=== PATIENT | male | born 1960 | race Caucasian/White ===

== ENCOUNTER 2018-06-09 16:13 | Inpatient (IN) ==
[2018-06-09] MEDS ORDERED: SODIUM CHLORIDE 0.9% 1000ML 1,000 ML IV ONE (16:29)
[2018-06-09] MEDS ORDERED: KETOROLAC TROMETHAMINE 15 MG/ML VIAL IV STA (16:29)
[2018-06-09] MEDS ORDERED: ONDANSETRON INJ 2 MG/ML 2 ML VIAL IV STA (16:29)
[2018-06-09 17:00] LABS: Basophils # (auto) 0.01 K/uL (0-0.2); Basophils % (auto) 0.1 %; Eosinophils # (auto) 0.04 K/uL (0-0.5); Eosinophils % (auto) 0.3 %; Hemoglobin 14.2 g/dL (14.0-18.0); Immature Granulocytes # (auto) 0.03 K/uL (0.00-0.02); Immature Granulocytes % (auto) 0.3 %; Lymphocytes # (auto) 1.07 K/uL (1.2-3.4); Lymphocytes % (auto) 9.3 %; Mean Corpuscular Hgb Conc 33.8 g/dL (32-36); Mean Corpuscular Volume 92.7 fL (80-100); Mean Platelet Volume 9.1 fL (7.4-10.4); Monocytes # (auto) 0.56 K/uL (0.11-0.59); Monocytes % (auto) 4.9 %; Neutrophils # (auto) 9.79 K/uL (1.4-6.5); Neutrophils % (auto) 85.1 %; Platelet Count 199 K/uL (130-400); RDW Coefficient of Variation 13.1 % (11.5-14.5); RDW Standard Deviation 44.1 fL (36.4-46.3); Red Blood Count 4.53 M/uL (4.7-6.1)
[2018-06-09 17:19] LABS: Alanine Aminotransferase 181 U/L (12-78); Albumin Level 4.2 gm/dl (3.4-5.0); Aspartate Aminotransferase 220 U/L (15-37); BUN Creatinine Ratio 20.3 (10-20); Bilirubin Direct 0.5 mg/dl (0-0.2); Blood Urea Nitrogen 18 mg/dl (7-18); Calcium 8.8 mg/dl (8.5-10.1); Carbon Dioxide 30 mmol/L (21-32); Chloride 101 mmol/L (98-107); Creatinine Clr Calc Pharmacy 114.8 ml/min; Glucose 115 mg/dl (70-99); Potassium 3.8 mmol/L (3.5-5.1); Sodium 136 mmol/L (136-145)
[2018-06-09 17:24] LABS: Alkaline Phosphatase 71 U/L (45-117); Bilirubin,Total 0.9 mg/dl (0.2-1); Total Protein 7.7 gm/dl (6.4-8.2); Troponin I < 0.015 ng/ml (0-0.045)
--- NOTE | 2018-06-09 17:27 | XRay Report ---
XR abdomen 2V w PA chest HISTORY: 57 years-old Male epigastric pain acute epigastric abdominal pain COMPARISON: CT abdomen and pelvis 01/16/2011 TECHNIQUE: PA view the chest with erect and supine views of the abdomen FINDINGS: Cardiomediastinal and hilar silhouettes are within normal limits. There is no pneumothorax, pleural e ffusion, focal airspace consolidation or overt pulmonary edema. Degenerative changes of the shoulders and spine. Prior cholecystectomy. Bowel gas pattern is nonobstructive. Moderate volume of formed stool noted abo ut the right hemicolon. No urolith identified. Degenerative changes of the spine, pelvis and hips. Ca lcifications of the prostate noted. IMPRESSION: 1. No acute processes of the chest. 2. Nonobstructive bowel gas pattern. 3. Moderate volume of formed stool about the right hemicolon. 4. Prior cholecystectomy. The above report was generated using voice recognition software. It may contain grammatical, syntax o r spelling errors. Electronically signed by: Donnie Fonseca M.D. 06/09/2018 5:25 PM
--- NOTE | 2018-06-09 18:02 | CT Scan Report ---
CT SCAN OF THE ABDOMEN AND PELVIS WITHOUT IV CONTRAST CLINICAL HISTORY: Epigastric abdominal pain. Right flank pain. Hematuria. COMPARISON STUDY: Abdominal CT dated 01/16/2011. TECHNIQUE: CT scan of the abdomen and pelvis is performed from the lung bases to the proximal femora. Images are reviewed in the axial, sagittal, and coronal planes. IV contrast was not administered for this examination. A dose lowering technique was utilized adhering to the principles of ALARA. CT DOSE: 844.28 mGy.cm FINDINGS: Lung bases: The heart is normal in size and without pericardial effusion. There are scattered coronar y artery calcifications. A tiny hiatal hernia is observed. The lung bases are clear. Liver: The unenhanced liver is normal in size, contour, and attenuation. There is mild central intrah epatic biliary ductal dilatation. Gallbladder: Surgically absent noting clips in the gallbladder fossa. There is a cystic duct remnant which contains numerous gallstones. There is choledocholithiasis with a 16 mm gallstone within the di stal common duct at the pancreatic head. Spleen: Normal in size and attenuation. Pancreas: Unremarkable. Adrenal glands: Unremarkable. Kidneys: The unenhanced kidneys are normal in size and without hydronephrosis. There are no renal natalia culi identified. There is no evidence of contour deforming renal mass lesion. Abdominal vasculature: The abdominal aorta is normal in course and caliber noting mild atheroscleroti c calcification. Bowel: There is mild colonic diverticulosis without CT evidence of acute diverticulitis. Colonic feca l retention is observed. No bowel obstruction is identified. The appendix is well-visualized and nor mal. Peritoneum: There is no intraperitoneal free air or abdominal ascites. There is a fat-containing umbi lical hernia. Lymphadenopathy: None. Pelvic viscera: The prostate gland is enlarged and heterogeneous, measuring 5.6 cm in transverse diam eter. There is median lobe hypertrophy. The bladder and seminal vesicles are normal as imaged. There are small bilateral fat-containing inguinal hernias. Skeletal structures: There is mild lumbosacral spondylosis. No lytic or blastic lesions are seen. IMPRESSION: 1. The gallbladder surgically absent. There are numerous gallstones within a cystic duct remnant. 2. There is choledocholithiasis with a 16 mm calcified gallstone in the distal common duct at the amp bernarda. MRCP is unlikely to provide further information and ERCP is recommended. 3. There is mild intrahepatic biliary ductal dilatation, which has increased from the 2011 examinatio n. 4. Mild colonic diverticulosis without CT evidence of acute diverticulitis. 5. Additional findings as above. Electronically signed by: Bob Kennedy M.D. 06/09/2018 6:00 PM
[2018-06-09] MEDS ORDERED: MoRPHine SULFATE 4 MG/ML 1 ML CARP\\VIAL IV STA (18:18)
--- NOTE | 2018-06-09 18:26 | Emergency Department Note ---
Entered by Froylan Ding acting as a scribe for Michael Cannon History of Present Illness General Chief complaint: Abdominal Pain Stated complaint: ABDOMINAL PAIN Time Seen by Provider: 06/09/18 16:24 Source: patient Limitations: no limitations History of Present Illness Provider complaint: RLQ abdominal pain Onset (ago): day(s) (3) Location: abdomen Severity: severe Pain Consistency: + constant Maximum Pain Intensity: 10 Associated symptoms: + other (Blood in underwear); no chest pain, no shortness of breath and no syncope The patient is a 57 year old male who presents to the Emergency Room with complaints of abdominal pain. The patient states that he first experienced pain in his right flank on Thursday, 3 days ago. This pain resolved, and returned again on Thursday and radiated into the right lower abdominal quadrant. Since Thursday the pain in the abdomen has persisted. 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 He felt like he was going to pass out secondary to the pain, but he never lost consciousness. The patient does add that he has noticed "blood in my underwear" intermittently over the past couple of days as well. There has not been any chest pain or shortness of breath. Home Medications Home Medications Medication Instructions Recorded Confirmed Type celecoxib 200 mg PO DAILY 05/05/18 06/09/18 History cholecalciferol (vitamin D3) 1,000 units PO DAILY 05/05/18 06/09/18 History [Vitamin D3] levothyroxine [Synthroid] 200 mcg PO DAILY 05/05/18 06/09/18 History lisinopril 10 mg PO DAILY 05/05/18 06/09/18 History omega 7-yut-mhv-fish oil [Fish Oil] 1,000 mg PO DAILY 05/05/18 06/09/18 History simvastatin 20 mg PO HS 05/05/18 06/09/18 History tramadol 100 mg PO BID PRN 05/05/18 06/09/18 History trazodone 100 mg PO HS 05/05/18 06/09/18 History venlafaxine 37.5 mg PO DAILY 05/05/18 06/09/18 History Allergies Allergy/AdvReac Type Severity Reaction Status Date / Time No Known Allergies Allergy Verified 06/09/18 17:06 Past Med/Surg History Medical History Rheumatoid arthritis (Chronic) Irritable bowel syndrome (Chronic 12/09/12) Hypothyroidism (Chronic 12/09/12) Other and unspecified hyperlipidemia (Chronic 12/09/12) GERD (gastroesophageal reflux disease) (Chronic 12/09/12) Diabetes (Chronic 12/09/12) Surgical History History of tonsillectomy (Resolved) History of orthopedic surgery (Resolved) Shoulder arthroscopy, knee arthroscopy History of cholecystectomy (Resolved 12/09/12) Social History Feels Safe at Home: Yes Smoking Status: Never smoker Review of Systems See HPI for pertinent positives & negatives. and A total of 10 systems reviewed and were otherwise negative Physical Exam Vital Signs Vital Signs - 24 hr 06/09/18 16:21 06/09/18 18:10 Temperature 36.5 C Temperature Source Oral Sepsis Recent Fever Within 48 Hours No Sepsis Action Taken by Nursing No Action Required Pulse Rate 72 Pulse Rate [Finger] 77 Pulse Rhythm [Finger] Regular Pulse Strength [Finger] Normal Respiratory Rate 20 18 Respiratory Effort / Characteristics Non-Labored Spontaneous Non-Labored Spontaneous Respiratory Depth Normal Normal Respiratory Pattern Regular Blood Pressure 158/83 H Blood Pressure [Right Arm] 163/87 H Blood Pressure Mean 108 Blood Pressure Mean [Right Arm] 112 Blood Pressure Position [Right Arm] Lying Pulse Oximetry 98 97 Oxygen Delivery Method Room Air Room Air Physical Exam GENERAL: He is oriented to person, place, and time. He appears well-developed and well-nourished. He does not appear distressed. ____ HENT: Exam performed. - Head: Normocephalic and atraumatic. - Right Ear: External ear normal. No mastoid tenderness. - Left Ear: External ear normal. No mastoid tenderness. - Mouth/Throat: The oropharynx is clear and moist. No trismus in the jaw. No dental abscesses or uvula swelling. No oropharyngeal exudate or tonsillar abscesses. ____ EYES: Conjunctivae and EOM are normal. Pupils are equal, round, and reactive to light. Right eye exhibits no discharge. Left eye exhibits no discharge. No scleral icterus. ____ NECK: Normal range of motion. Neck supple. No JVD present. No spinous process tenderness present. No carotid bruit present. No rigidity. No tracheal deviation and normal range of motion present. No Brudzinski's sign and no Kernig's sign noted. ____ CV: Normal rate, regular rhythm, normal heart sounds and intact distal pulses. There is no peripheral edema. Palpable radial pulses bue. ____ PULM/CHEST: Effort normal and breath sounds normal. No respiratory distress. No stridor. He has no wheezes. He has no rales. - Chest Wall: He exhibits no tenderness. ____ ABD: The abdomen is soft. Bowel sounds are normal. He has no distension. No mass is present. There is pain on palpation of the epigastric region. There is no rebound, no guarding, no Broden's sign and no tenderness at McBurney's point. Rovsig negative MUSC/SKEL: Normal range of motion. There is no peripheral edema, tenderness or deformity. LYMPH: No cervical adenopathy. ____ NEURO: He is alert and oriented to person, place, and time. He has normal strength. No cranial nerve deficit or sensory deficit. Coordination and gait normal. GCS eye subscore is 4. GCS verbal subscore is 5. GCS motor subscore is 6. cerbellar tests wnl. ____ SKIN: Skin is warm and dry. He is not diaphoretic. ____ PSYCH: He has a normal mood and affect. His behavior is normal. Judgment and thought content normal. ____ Course 1626: Past medical records reviewed. The patient was evaluated in room A4B, and a complete history and physical examination were performed. 1710: Vital signs stable. Patient continues pain on palpation of the epigastric area. Labs show elevated liver enzymes. Will obtain CT of the abdomen. 1825: Vital signs stable. CT of the abdomen showed a large calcified gallstone in the distal common duct at the ampulla. Radiology is recommending ERCP. There is mild intrahepatic biliary ductal dilatation. I discussed these findings with the patient is continuing of pain. Repeat analgesia given in the emergency department. I discussed with the patient he should be admitted for ERCP as recommended. Patient is in agreement. [facility] states to admit to Dr. Camilo service. [facility] hospitalist service is recommending that we speak with GI environmental engineer. Spoke with [facility] GI Dr. Dietz who agrees to be on consult. Administered Medications Discontinued Medications Sodium Chloride (Nss 1000ml) 1,000 mls @ 999 mls/hr IV .Q1H1M ONE Stop: 06/09/18 17:29 Last Infusion: 06/09/18 17:54 Dose: 0 mls/hr Documented by: [id number] Admin: 06/09/18 16:53 Dose: 999 mls/hr Documented by: [id number] Ketorolac Tromethamine (Toradol) 15 mg IV NOW STA Stop: 06/09/18 16:30 Last Admin: 06/09/18 16:53 Dose: 15 mg Documented by: [id number] Morphine Sulfate (Morphine Sulfate) 4 mg IV NOW STA Stop: 06/09/18 18:19 Last Admin: 06/09/18 18:21 Dose: 4 mg Documented by: [id number] Ondansetron HCl (Zofran) 4 mg IV NOW STA Stop: 06/09/18 16:30 Last Admin: 06/09/18 16:53 Dose: 4 mg Documented by: [id number] Medical Decision Making Medical Records Attestation: I reviewed the patient's medical records. Home Medications Current Medication List: was personally reviewed by me Laboratory Data Attestation: I reviewed the patient's lab results. Result diagrams: 06/09/18 16:51 06/09/18 16:51 Lab Results 06/09/18 06/09/18 Range/Units 16:51 16:51 WBC 11.50 H (4.8-10.8) K/uL RBC 4.53 L (4.7-6.1) M/uL Hgb 14.2 (14.0-18.0) g/dL Hct 42.0 (42-52) % MCV 92.7 (80-100) fL MCH 31.3 (25-34) pg MCHC 33.8 (32-36) g/dL RDW Std Deviation 44.1 (36.4-46.3) fL RDW Coeff of Jean 13.1 (11.5-14.5) % Plt Count 199 (130-400) K/uL MPV 9.1 (7.4-10.4) fL Immature Gran % (Auto) 0.3 % Neut % (Auto) 85.1 % Lymph % (Auto) 9.3 % Motley % (Auto) 4.9 % Eos % (Auto) 0.3 % Baso % (Auto) 0.1 % Immature Gran # (Auto) 0.03 H (0.00-0.02) K/uL Neut # (Auto) 9.79 H (1.4-6.5) K/uL Lymph # (Auto) 1.07 L (1.2-3.4) K/uL Motley # (Auto) 0.56 (0.11-0.59) K/uL Eos # (Auto) 0.04 (0-0.5) K/uL Baso # (Auto) 0.01 (0-0.2) K/uL Sodium 136 (136-145) mmol/L Potassium 3.8 (3.5-5.1) mmol/L Chloride 101 (98-107) mmol/L Carbon Dioxide 30 (21-32) mmol/L Anion Gap 5.0 (3-11) BUN 18 (7-18) mg/dl Creatinine 0.88 (0.6-1.4) mg/dl Est Cr Clr Drug Dosing 114.8 ml/min Est GFR ( Amer) 109.0 Est GFR (Non-Af Amer) 94.0 BUN/Creatinine Ratio 20.3 H (10-20) Glucose 115 H (70-99) mg/dl Calcium 8.8 (8.5-10.1) mg/dl Total Bilirubin 0.9 (0.2-1) mg/dl Direct Bilirubin 0.5 H (0-0.2) mg/dl AST 220 H (15-37) U/L ALT 181 H (12-78) U/L Alkaline Phosphatase 71 (45-117) U/L Troponin I < 0.015 (0-0.045) ng/ml Total Protein 7.7 (6.4-8.2) gm/dl Albumin 4.2 (3.4-5.0) gm/dl Lipase 145 (73-393) U/L Imaging Data Attestation: I personally reviewed and interpreted this imaging study as follows: Radiologist's Impression: XR abdomen 2V w PA chest HISTORY: 57 years-old Male epigastric pain acute epigastric abdominal pain COMPARISON: CT abdomen and pelvis 01/16/2011 TECHNIQUE: PA view the chest with erect and supine views of the abdomen FINDINGS: Cardiomediastinal and hilar silhouettes are within normal limits. There is no pneumothorax, pleural effusion, focal airspace consolidation or overt pulmonary edema. Degenerative changes of the shoulders and spine. Prior cholecystectomy. Bowel gas pattern is nonobstructive. Moderate volume of formed stool noted about the right hemicolon. No urolith identified. Degenerative changes of the spine, pelvis and hips. Calcifications of the pros wood noted. IMPRESSION: 1. No acute processes of the chest. 2. Nonobstructive bowel gas pattern. 3. Moderate volume of formed stool about the right hemicolon. 4. Prior cholecystectomy. The above report was generated using voice recognition software. It may contain grammatical, syntax or spelling errors. Electronically signed by: Donnie Fonseca M.D. 06/09/2018 5:[address] SCAN OF THE ABDOMEN AND PELVIS WITHOUT IV CONTRAST CLINICAL HISTORY: Epigastric abdominal pain. Right flank pain. Hematuria. COMPARISON STUDY: Abdominal CT dated 01/16/2011. TECHNIQUE: CT scan of the abdomen and pelvis is performed from the lung bases to the proximal femora. Images are reviewed in the axial, sagittal, and coronal planes. IV contrast was not administered for this examination. A dose lowering technique was utilized adhering to the principles of ALARA. CT DOSE: 844.28 mGy.cm FINDINGS: Lung bases: The heart is normal in size and without pericardial effusion. There are scattered coronary artery calcifications. A tiny hiatal hernia is observed. The lung bases are clear. Liver: The unenhanced liver is normal in size, contour, and attenuation. There is mild central intrahepatic biliary ductal dilatation. Gallbladder: Surgically absent noting clips in the gallbladder fossa. There is a cystic duct remnant which contains numerous gallstones. There is choledoc holithiasis with a 16 mm gallstone within the distal common duct at the pancreatic head. Spleen: Normal in size and attenuation. Pancreas: Unremarkable. Adrenal glands: Unremarkable. Kidneys: The unenhanced kidneys are normal in size and without hydronephrosis. There are no renal calculi identified. There is no evidence of contour deforming renal mass lesion. Abdominal vasculature: The abdominal aorta is normal in course and caliber noting mild atherosclerotic calcification. Bowel: There is mild colonic diverticulosis without CT evidence of acute diverticulitis. Colonic fecal retention is observed. No bowel obstruction is identified. The appendix is well-visualized and normal. Peritoneum: There is no intraperitoneal free air or abdominal ascites. There is a fat-containing umbilical hernia. Lymphadenopathy: None. Pelvic viscera: The prostate gland is enlarged and heterogeneous, measuring 5.6 cm in transverse diameter. There is median lobe hypertrophy. The bladder and seminal vesicles are normal as imaged. There are small bilateral fat-containing inguinal hernias. Skeletal structures: There is mild lumbosacral spondylosis. No lytic or blastic lesions are seen. IMPRESSION: 1. The gallbladder surgically absent. There are numerous gallstones within a cystic duct remnant. 2. There is choledocholithiasis with a 16 mm calcified gallstone in the distal common duct at the ampulla. MRCP is unlikely to provide further information and ERCP is recommended. 3. There is mild intrahepatic biliary ductal dilatation, which has increased from the 2011 examination. 4. Mild colonic diverticulosis without CT evidence of acute diverticulitis. 5. Additional findings as above. Electronically signed by: Bob Kennedy M.D. 06/09/2018 6:00 PM ECG Data Attestation: I personally reviewed and interpreted this ECG as follows: Indication: abdominal pain Rate (beats per minute): 64 Rhythm: sinus rhythm Findings: + other (KS, QRS, QTC within normal limits) and + T-wave inversion (lead 3); no ST depression and no ST elevation Blood Pressure Blood Pressure Findings: Elevated blood pressure Blood Pressure Disposition: Referred to patients primary care provider [facility] Narrative 1626: Past medical records reviewed. The patient was evaluated in room A4B, and a complete history and physical examination were performed. 1710: Vital signs stable. Patient continues pain on palpation of the epigastric area. Labs show elevated liver enzymes. Will obtain CT of the abdomen. 1825: Vital signs stable. CT of the abdomen showed a large calcified gallstone in the distal common duct at the ampulla. Radiology is recommending ERCP. There is mild intrahepatic biliary ductal dilatation. I discussed these findings with the patient is continuing of pain. Repeat analgesia given in the emergency department. I discussed with the patient he should be admitted for ERCP as recommended. Patient is in agreement. Discussed this case with the [facility]ist Kimber Ibrahim who states to admit to Dr. Ton rios. [facility] hospitalist service is recommending that we speak with GI environmental engineer. Spoke with [facility] GI Dr. Dietz who agrees to be on consult. Impression & Plan Choledocholithiasis, Elevated liver enzymes Discharge Plan Visit Data Chief Complaint: Abdominal Pain Stated Complaint: ABDOMINAL PAIN ED Provider: Michael Cannon Discharge Problem: Choledocholithiasis, Elevated liver enzymes Patient Disposition: Being Evaluated by Hospitalist Forms Stand Alone Forms: Call Back Authorization, [facility] Prescriptions Prescriptions: No Action celecoxib 200 mg capsule 200 mg PO DAILY RF: 0 venlafaxine 37.5 mg capsule,extended release 24hr 37.5 mg PO DAILY RF: 0 tramadol 50 mg tablet 100 mg PO BID PRN (Reason: Pain) RF: 0 trazodone 100 mg tablet 100 mg PO HS RF: 0 simvastatin 20 mg tablet 20 mg PO HS RF: 0 lisinopril 10 mg tablet 10 mg PO DAILY RF: 0 levothyroxine [Synthroid] 200 mcg tablet 200 mcg PO DAILY RF: 0 cholecalciferol (vitamin D3) [Vitamin D3] 1,000 unit Capsule 1,000 units PO DAILY RF: 0 omega 5-mgv-gjn-fish oil [Fish Oil] 1,000 mg (120 mg-180 mg) Capsule 1,000 mg PO DAILY RF: 0 Referrals Referrals: Frank Hassan MD [Primary Care Provider] - The scribe's documentation has been prepared under my direction and personally reviewed by me in its entirety. I confirm that the note above accurately reflects all work, treatment, procedures, and medical decision making performed by me.
--- NOTE | 2018-06-09 19:53 | History & Physical Report ---
Date of Service June 09, 2018 Assessment & Plan (1) Choledocholithiasis: (2) Elevated liver enzymes: Pt presented with RUQ pain today. No N/V/D. H/O cholecystectomy. In ER pt afebrile, P: 72, R:20, BP: 158/83, 98% RA. WBC: 11.5, H/H: 14/42, BUN: 18, Cr: 0.8, Total bili: 0.9, Direct bili: 0.5, AST: 220, ALT: 181, Alk Phos: 71. No jaundice on exam CT ABD/PELVIS: 1. The gallbladder surgically absent. There are numerous gallstones within a cystic duct remnant. 2. There is choledocholithiasis with a 16 mm calcified gallstone in the distal common duct at the ampulla. MRCP is unlikely to provide further information and ERCP is recommended. 3. There is mild intrahepatic biliary ductal dilatation, which has increased from the 2011 examination. 4. Mild colonic diverticulosis without CT evidence of acute diverticulitis. -In ER given 1L NSS, zofran 4mg, morphine 4mg, Toradol 15mg IV. -clear liquids -NPO midnight -IVF -cipro, flagyl -morphine prn pain -GI consult, appreciate recommendations -CBC, CMP, Liver profile in am (3) HTN (hypertension): Elevated probable secondary to pain -continue lisinopril -monitor (4) Dyslipidemia: -hold statin for now (5) Hypothyroidism: -continue levothyroxine (6) Insomnia: -continue trazadone prn insomnia (7) Osteoarthritis: -hold celebrex at this time -continue venlafaxine DVT Prophylaxis -SCDs Full Code Follows with Dr Hassan for routine care Pt was seen with Dr Miranda. See addendum History of Present Illness Chief Complaint: Abdominal pain Primary Care Provider: Frank Hassan Pt is 57 y/o M with PMH dyslipidemia, HTN, hypothryoidism, GERD, IBS, OA presented to ER with c/o abdominal pain x 1 day. Pt states 3 days ago had some R flank pain that lasted approx 1 hour and resolved. This morning started with RUQ dull pain that was severe. He took 2 Tylenol and 2 Tramadol with some relief of pain. This evening pain increased again. Denies N/V/D. Last BM yesterday. Hx cholecystectomy in 1997. Denies fever/chills, diaphoresis, KAY, dizziness, syncope, vision changes, neck pain, CP, SOB, orthopnea, palpitations, cough, sore throat, choking, otalgia, rhinorrhea, paresthesias, weakness, extremity weakness, extremity edema, rashes, urinary symptoms. Allergies Allergy/AdvReac Type Severity Reaction Status Date / Time No Known Allergies Allergy Verified 06/09/18 17:06 Home Medications Home Medications Medication Instructions Recorded Confirmed Type celecoxib 200 mg PO DAILY 05/05/18 06/09/18 History cholecalciferol (vitamin D3) 1,000 units PO DAILY 05/05/18 06/09/18 History [Vitamin D3] levothyroxine [Synthroid] 200 mcg PO DAILY 05/05/18 06/09/18 History lisinopril 10 mg PO DAILY 05/05/18 06/09/18 History omega 6-iac-ipc-fish oil [Fish Oil] 1,000 mg PO DAILY 05/05/18 06/09/18 History simvastatin 20 mg PO HS 05/05/18 06/09/18 History tramadol 100 mg PO BID PRN 05/05/18 06/09/18 History trazodone 100 mg PO HS PRN 05/05/18 06/09/18 History venlafaxine 37.5 mg PO DAILY 05/05/18 06/09/18 History Past Med/Surg History Medical History Insomnia (Chronic) HTN (hypertension) (Chronic) Dyslipidemia (Chronic) Osteoarthritis (Chronic) Irritable bowel syndrome (Chronic 12/09/12) Hypothyroidism (Chronic 12/09/12) GERD (gastroesophageal reflux disease) (Chronic 12/09/12) Surgical History History of tonsillectomy (Chronic) History of orthopedic surgery (Chronic) Shoulder arthroscopy, knee arthroscopy History of cholecystectomy (Chronic 12/09/12) Social History Preferred Language: Maldivian Communication Ability: Effective Whiskey Filterer Required: No Beliefs That Will Affect Care: None Current Living Situation: Spouse Feels Safe at Home: Yes Safety Concerns: Feels Safe At This Time Smoking Status: Never smoker Hx Alcohol Use: Yes Hx Substance Use: No Review of Systems All systems reviewed & are unremarkable except as noted in HPI & below Physical Exam Vital Signs (Past 24 Hours): Last Vital Signs Temp 36.5 C 06/09/18 16:21 Pulse 77 06/09/18 18:10 Resp 18 06/09/18 18:10 BP 163/87 H 06/09/18 18:10 Pulse Ox 97 06/09/18 18:10 Physical Exam: General: no acute distress, overweight Head: normocephalic, atraumatic Eyes: PERRL, EOM's intact, conjunctiva non-injected, anicteric ENT: normal inspection external ears, nose, mucous membranes moist Neck: supple, trachea midline Lungs: clear, no respiratory distress, no wheezing/rhonchi/rales CV: RRR, no murmur, no pretibial edema Abd: normal BS, soft, + tender RUQ and mild to epigastric Ext: no cyanosis, no calf tenderness Neuro: A&O x 3, no focal deficits noted, normal affect Skin: warm, dry Results & Data Laboratory Results Short CBC 06/09/18 Range/Units 16:51 WBC 11.50 H (4.8-10.8) K/uL Hgb 14.2 (14.0-18.0) g/dL Hct 42.0 (42-52) % Plt Count 199 (130-400) K/uL BMP 06/09/18 16:51 Sodium 136 Potassium 3.8 Chloride 101 Carbon Dioxide 30 BUN 18 Creatinine 0.88 Glucose 115 H Calcium 8.8 Cardiac Enzymes 06/09/18 Range/Units 16:51 Troponin I < 0.015 (0-0.045) ng/ml Liver Function 06/09/18 Range/Units 16:51 Total Bilirubin 0.9 (0.2-1) mg/dl Direct Bilirubin 0.5 H (0-0.2) mg/dl AST 220 H (15-37) U/L ALT 181 H (12-78) U/L Alkaline Phosphatase 71 (45-117) U/L Albumin 4.2 (3.4-5.0) gm/dl Diagnostic Findings CT ABD/PELVIS: IMPRESSION: 1. The gallbladder surgically absent. There are numerous gallstones within a cystic duct remnant. 2. There is choledocholithiasis with a 16 mm calcified gallstone in the distal common duct at the ampulla. MRCP is unlikely to provide further information and ERCP is recommended. 3. There is mild intrahepatic biliary ductal dilatation, which has increased from the 2011 examination. 4. Mild colonic diverticulosis without CT evidence of acute diverticulitis. 5. Additional findings as above. CXR: IMPRESSION: 1. No acute processes of the chest. 2. Nonobstructive bowel gas pattern. 3. Moderate volume of formed stool about the right hemicolon. 4. Prior cholecystectomy. ECG Rate (beats per minute): 64 Rhythm: normal sinus Supervising Physician Co-Signing Physician Notes Patient is a 57-year-old male with his dyslipidemia, hypothyroidism and other medical problems presents with history of abdominal pain since 1 day duration. Abdominal pain is predominantly right Upper and lower quadrant region, intermittent, decreases with pain medication. Please review HPI for complete details of presentation. CT abdomen suggestive of choledocholithiasis with 16mm gallstone in distal CBD. On exam patient is moderately built and nourished, no apparent distress, lungs are clear to auscultation, abdomen is soft, right lower quadrant and right upper quadrant tenderness positive, no guarding or rigidity. Patient will be admitted for management of choledocholithiasis. N.p.o. after midnight, IV fluids, empiric IV antibiotics, pain control. GI is consulted for possible ERCP. Monitor LFTs. I personally reviewed the record. Patient is interviewed and examined at bedside. Patient's care is coordinated with Anny Ocasio PA-C. Please refer to the documentation above for details of patient's presentation and for discussion of other issues.
[2018-06-09] MEDS: SODIUM CHLORIDE 0.9% 1000ML 1,000 ML IV SCH (21:27)
[2018-06-09] MEDS: metroNIDAZOLE 500 MG/100 ML BAG IV SCH (21:27)
[2018-06-09] MEDS: CIPROFLOXACIN 400 MG/200 ML BAG IV SCH (22:42)
[2018-06-10] MEDS: TRAZODONE HCL 100 MG TAB PO PRN (00:13)
[2018-06-10] MEDS: metroNIDAZOLE 500 MG/100 ML BAG IV SCH ×3 (05:18→23:23)
[2018-06-10] MEDS: MoRPHine SULFATE 4 MG/ML 1 ML CARP\\VIAL IV PRN ×3 (05:19→12:06)
[2018-06-10] MEDS: LEVOTHYROXINE SODIUM 200 MCG TABLET PO SCH (05:21)
[2018-06-10 06:22] LABS: Eosinophils # (auto) 0.06 K/uL (0-0.5); Eosinophils % (auto) 1.2 %; Hematocrit (blood only) 38.7 % (42-52); Hemoglobin 13.2 g/dL (14.0-18.0); Immature Granulocytes # (auto) 0.01 K/uL (0.00-0.02); Immature Granulocytes % (auto) 0.2 %; Lymphocytes % (auto) 20.8 %; Mean Corpuscular Hgb Conc 34.1 g/dL (32-36); Mean Corpuscular Volume 92.4 fL (80-100); Mean Platelet Volume 9.1 fL (7.4-10.4); Monocytes # (auto) 0.37 K/uL (0.11-0.59); Monocytes % (auto) 7.7 %; Neutrophils # (auto) 3.37 K/uL (1.4-6.5); Neutrophils % (auto) 70.1 %; Platelet Count 171 K/uL (130-400); RDW Coefficient of Variation 13.2 % (11.5-14.5); Red Blood Count 4.19 M/uL (4.7-6.1); White Blood Count 4.81 K/uL (4.8-10.8)
[2018-06-10 07:12] LABS: Albumin Globulin Ratio 1.1 (0.9-2); Albumin Level 3.5 gm/dl (3.4-5.0); BUN Creatinine Ratio 14.6 (10-20); Bilirubin Direct 2.1 mg/dl (0-0.2); Bilirubin,Total 3.2 mg/dl (0.2-1); Calcium 8.4 mg/dl (8.5-10.1); Creatinine Clr Calc Pharmacy 122.3 ml/min; Est GFR (African American) 111.1; Est GFR (Non-African American) 95.8; Globulin 3.1 gm/dl (2.5-4.0); Total Protein 6.6 gm/dl (6.4-8.2)
--- NOTE | 2018-06-10 07:51 | Gastrointestinal Consultation ---
Date of Consultation June 10, 2018 Assessment & Plan (1) Choledocholithiasis: Mr. Pepe Reeder is a 57 yr old male with RUQ pain, choledocholithiasis on CT. Plan: 1. IV fluids 2. Cover for cholangitis (mild leukocytosis at 11 on arrival). 3. Plan for ERCP this afternoon by Dr. Hurt. Present on Admission?: Yes Supervising Physician Co-Signing Physician Notes I have performed a history and physical examination of this patient and reviewed the electronic medical record. Specifically, on physical examination there is mild RUQ tenderness. I have discussed the case with MARY Rainey. The above note reflects my findings, conclusions, and recommendations. Ean Hurt MD History of Present Illness Reason for Consultation: Choledocholithiasis Requesting Physician: Mr. Varinder Cantu is a 57 yr old male with a hx of GERD, RhArthritis, Hypothyroidism, DM, IBS who is post distant cholecyctectomy. He presented to the ED yesterday for RUQ abdominal pain. This pain began on Thursday (4 days ago) as a sharp, moderately severe back pain though he soon realized that he also had RUQ pain with the back pain. He felt better again until yesterday when the pain returned along with dark urine. He has not had a fever, nausea, vomiting, jaundice, or icterus. He is on celecoxib, no other NSAIDs and no antiplatelet/anticoagulants. On arrival, WBC 11, Hb 14, T bili 0.5->2.1 today, AST 22->1031, ALT 181->1091, Alk Phos 136. Lipase has been normal. CT suggests choledocholithiasis: 16 mm calcified gallstone in the distal common duct at the ampulla. The pt is awake, alert, oriented and hemodynamically stable. Despite pain medications and being NPO, he continues with a 4 of 10 RUQ abdomen pain. Attending Physician: Jagjit Mcdonald MD Allergies Allergy/AdvReac Type Severity Reaction Status Date / Time No Known Allergies Allergy Verified 06/09/18 17:06 Home Medications Home Medications Medication Instructions Recorded Confirmed Type celecoxib 200 mg PO DAILY 05/05/18 06/09/18 History cholecalciferol (vitamin D3) 1,000 units PO DAILY 05/05/18 06/09/18 History [Vitamin D3] levothyroxine [Synthroid] 200 mcg PO DAILY 05/05/18 06/09/18 History lisinopril 10 mg PO DAILY 05/05/18 06/09/18 History omega 7-svh-pph-fish oil [Fish Oil] 1,000 mg PO DAILY 05/05/18 06/09/18 History simvastatin 20 mg PO HS 05/05/18 06/09/18 History tramadol 100 mg PO BID PRN 05/05/18 06/09/18 History trazodone 100 mg PO HS PRN 05/05/18 06/09/18 History venlafaxine 37.5 mg PO DAILY 05/05/18 06/09/18 History Patient History Medical History Insomnia (Chronic) HTN (hypertension) (Chronic) Dyslipidemia (Chronic) Osteoarthritis (Chronic) Irritable bowel syndrome (Chronic 12/09/12) Hypothyroidism (Chronic 12/09/12) GERD (gastroesophageal reflux disease) (Chronic 12/09/12) Surgical History History of tonsillectomy (Chronic) History of orthopedic surgery (Chronic) Shoulder arthroscopy, knee arthroscopy History of cholecystectomy (Chronic 12/09/12) Family History Other Colon cancer HTN (hypertension) Social History Preferred Language: Sammarinese Communication Ability: Effective Supervisor Bottle House Cleaners Required: No Beliefs That Will Affect Care: None Current Living Situation: Spouse Feels Safe at Home: Yes Safety Concerns: Feels Safe At This Time Smoking Status: Never smoker Hx Alcohol Use: Yes Hx Substance Use: No Review of Systems Gen: Denies fever, weakness, weight loss. Eyes: no vision changes, no eye redness or pain Respiratory: No SOB, no cough Cardiovascular: No irregular heartbeats or chest pain Abdomen: + RUQ pain, no nausea/vomiting Ext: No edema Hem: No excessive bruising/bleeding : dark urine, no dysuria or difficulty initiating the stream of urine. Physical Exam Vital Signs (Past 24 Hours): Last Vital Signs Temp 36.7 C 06/10/18 07:27 Pulse 73 06/10/18 07:27 Resp 16 06/10/18 07:27 BP 141/82 H 06/10/18 07:27 Pulse Ox 96 06/10/18 07:27 Constitutional: WD/WN, vitals as above + obese (mildly) and healthy appearing Eyes: PERRL, conjunctivae normal, anicteric sclerae Neck: trachea midline, no thyromegaly Respiratory: normal respiratory effort, lungs clear to auscultation Cardiovascular: RRR, no murmur, no edema Gastrointestinal (Abdomen): Inspection/Auscultation: abdomen not distended Percussion/Palpation: + abdomen tender (RUQ ) and abdomen soft; no ascites Skin: no rashes, warm and dry no jaundice Neurologic: PERRL, EOMI, accommodation nl, no face palsy, no dysarthria Genitourinary: dark urine Lymphatic: no cervical or axillary lymphadenopathy Results & Data Diagnostic Findings CT 06/09/18: 1. The gallbladder surgically absent. There are numerous gallstones within a cystic duct remnant. 2. There is choledocholithiasis with a 16 mm calcified gallstone in the distal common duct at the ampulla. MRCP is unlikely to provide further information and ERCP is recommended. 3. There is mild intrahepatic biliary ductal dilatation, which has increased from the 2011 examination. 4. Mild colonic diverticulosis without CT evidence of acute diverticulitis. 5. Additional findings as above.
[2018-06-10] MEDS: VENLAFAXINE HCL XR 37.5 MG CAPXR PO SCH (08:21)
[2018-06-10] MEDS: CIPROFLOXACIN 400 MG/200 ML BAG IV SCH ×2 (08:21→20:26)
[2018-06-10] MEDS: LISINOPRIL 10 MG TAB PO SCH (08:21)
--- NOTE | 2018-06-10 08:53 | Anesthesiology Consultation ---
Date of Service June 10, 2018 Assessment & Plan (1) Encounter for pre-operative examination: Chart Review Chart Review: Acceptable Risk for Surgery and Patient NOT seen in Pre Admission Testing NPO Date Last Intake of Fluids: 06/09/18 Time Last Intake of Fluids: 23:59 Date Last Intake of Solids: 06/09/18 Time Last Intake of Solids: 23:59 History Surgery Operation Date: 06/10/18 08:15 Proposed Procedures p Endoscopic Retrograde Cholangiopancreato - Ean Hurt MD Height/Weight Height: 1.88 m Weight: 105 kg Allergies Allergy/AdvReac Type Severity Reaction Status Date / Time No Known Allergies Allergy Verified 06/09/18 17:06 Medications Home Medications Medication Instructions Recorded Confirmed Last Taken celecoxib 200 mg PO DAILY 05/05/18 06/09/18 Unknown cholecalciferol (vitamin D3) 1,000 units PO DAILY 05/05/18 06/09/18 Unknown [Vitamin D3] levothyroxine [Synthroid] 200 mcg PO DAILY 05/05/18 06/09/18 Unknown lisinopril 10 mg PO DAILY 05/05/18 06/09/18 Unknown omega 3-sgp-avz-fish oil [Fish Oil] 1,000 mg PO DAILY 05/05/18 06/09/18 Unknown simvastatin 20 mg PO HS 05/05/18 06/09/18 Unknown tramadol 100 mg PO BID PRN 05/05/18 06/09/18 Unknown trazodone 100 mg PO HS PRN 05/05/18 06/09/18 Unknown venlafaxine 37.5 mg PO DAILY 05/05/18 06/09/18 Unknown Active Medications Generic Name Dose Route Start Last Admin Trade Name Freq PRN Reason Stop Dose Admin Sodium Chloride 1,000 mls @ 80 mls/hr 06/09/18 20:30 06/10/18 06:18 Nss 1000ml IV 07/09/18 20:29 80 mls/hr .[id number] RITA Infusion Metronidazole 500 mg in 100 mls @ 100 mls/hr 06/09/18 20:45 06/10/18 06:18 Flagyl IV 06/19/18 20:44 Infused Q8 RITA Infusion Ciprofloxacin 400 mg in 200 mls @ 100 mls/hr 06/09/18 21:00 06/10/18 08:21 Cipro IV 06/19/18 20:59 100 mls/hr Q12H RITA Administration Levothyroxine Sodium 200 mcg 06/10/18 06:30 06/10/18 05:21 Synthroid PO 07/10/18 06:29 200 mcg DAILYBB RITA Administration Lisinopril 10 mg 06/10/18 09:00 06/10/18 08:21 Zestril PO 07/10/18 08:59 10 mg DAILY RITA Administration Morphine Sulfate 3 mg 06/09/18 20:23 06/10/18 08:19 Morphine Sulfate IV 06/23/18 20:22 3 mg Q3H PRN Administration Pain Trazodone HCl 100 mg 06/09/18 20:23 06/10/18 00:13 Desyrel PO 07/09/18 20:22 100 mg HS PRN Administration Insomnia Venlafaxine HCl 37.5 mg 06/10/18 09:00 06/10/18 08:21 Effexor Extended Release PO 07/10/18 08:59 37.5 mg DAILY RITA Administration Past Medical History Medical History Insomnia (Chronic) HTN (hypertension) (Chronic) Dyslipidemia (Chronic) Osteoarthritis (Chronic) Irritable bowel syndrome (Chronic 12/09/12) Hypothyroidism (Chronic 12/09/12) GERD (gastroesophageal reflux disease) (Chronic 12/09/12) Past Family History Family History Other Colon cancer HTN (hypertension) Past Surgical History Surgical History History of tonsillectomy (Chronic) History of orthopedic surgery (Chronic) Shoulder arthroscopy, knee arthroscopy History of cholecystectomy (Chronic 12/09/12) Social History Smoking Status: Never smoker Hx Alcohol Use: Yes Alcohol type: wine alcohol intake frequency: holidays/special occasions only Hx Substance Use: No substance use type: does not use Physical Exam Vital Signs Last Vital Signs Temp 36.7 C 06/10/18 07:27 Pulse 73 06/10/18 07:27 Resp 16 06/10/18 07:27 BP 141/82 H 06/10/18 07:27 Pulse Ox 96 06/10/18 07:27 Testing Electrocardiogram Date: 06/09/18 Findings: + NSR @ (64) Chest X-Ray Date: 06/09/18 Findings: + NAD FINDINGS: Cardiomediastinal and hilar silhouettes are within normal limits. There is no pneumothorax, pleural effusion, focal airspace consolidation or overt pulmonary edema. Degenerative changes of the shoulders and spine. Prior cholecystectomy. Bowel gas pattern is nonobstructive. Moderate volume of formed stool noted about the right hemicolon. No urolith identified. Dege nerative changes of the spine, pelvis and hips. Calcifications of the prostate noted. IMPRESSION: 1. No acute processes of the chest. 2. Nonobstructive bowel gas pattern. 3. Moderate volume of formed stool about the right hemicolon. 4. Prior cholecystectomy. Laboratory Results 06/10/18 05:41 06/10/18 05:41
[2018-06-10] MEDS ORDERED: HYDROmorphone INJ 0.5 MG/0.5 ML SYR IV STA ×2 (10:52→15:54)
[2018-06-10] MEDS ORDERED: ONDANSETRON INJ 2 MG/ML 2 ML VIAL ONE (11:59)
[2018-06-10] MEDS ORDERED: ROCURONIUM BROMIDE 10 MG/ML 5 ML VIAL ONE (11:59)
[2018-06-10] MEDS ORDERED: LIDOCAINE HCL 2% 2 ML VIAL/AMP(20MG/ML) INFIL ONE (11:59)
[2018-06-10] MEDS ORDERED: fentaNYL citrate 100 MCG/2 ML VIAL ONE ×2 (11:59→14:04)
[2018-06-10] MEDS ORDERED: PROPOFOL IV EMULSION 10 MG/ML 20 ML VIAL IV ONE (11:59)
[2018-06-10] MEDS ORDERED: DEXAMETHASONE SOD INJ 4 MG/ML VIAL ONE (11:59)
[2018-06-10] MEDS ORDERED: MIDAZOLAM HCL 1 MG/ML 2ML VIAL ONE (11:59)
[2018-06-10] MEDS ORDERED: fentaNYL citrate 100 MCG/2 ML VIAL IV PRN (13:20)
[2018-06-10] MEDS ORDERED: KETOROLAC 30 MG/ML VIAL IV PRN (13:20)
[2018-06-10] MEDS ORDERED: ONDANSETRON INJ 2 MG/ML 2 ML VIAL IV PRN (13:20)
[2018-06-10] MEDS ORDERED: ATROPINE SULFATE 0.1 MG/ML 10ML SYR IV PRN (13:20)
[2018-06-10] MEDS ORDERED: LABETALOL HCL IV 5 MG/ML 20ML IV PRN (13:20)
[2018-06-10] MEDS ORDERED: INDOMETHACIN 50 MG SUPP PR ONE (13:38)
--- NOTE | 2018-06-10 14:25 | Operative Report ---
Post Operative Report Pre & Post Diagnosis Operation Date: 06/10/18 08:15 Pre-Op Diagnosis: CHOLEDOCHOLITHIASIS Post-Op Diagnosis: CHOLEDOCHOLITHIASIS Procedure Operation Date: 06/10/18 08:15 Actual Procedures ERCP with papillotomy, dilitation, stone extraction and stent placement- Ean Hurt MD Surgeon Ean Hurt MD Housekeeper And Laundry Assistant NONE Estimated Blood Loss 0 Findings Consistent with Post-Op Diagnosis Specimens NONE Description of Procedure See Provation report I attest to the content of the Intraoperative Record and any orders documented therein. Any exceptions are noted below.
--- NOTE | 2018-06-10 14:51 | GI REPORT ---
Patient Name: Pepe Reeder Procedure Date: 06/10/2018 12:31 PM Date of : 1960 Admit Type: Inpatient Age: 57 Gender: Male Attending MD: Ean Hurt MD Procedure: ERCP Providers: Ean Hurt MD Referring MD: Jagjit Mcdonald M.d. Indications: For therapy of bile duct stone visualized by CT in the CBD and cystic duct; s/p cholecystectomy 1998 Medicines: General Anesthesia, Indomethicin 100 mg rectal Complications: No immediate complications. Estimated blood loss: None Estimated Blood Loss: Estimated blood loss: none. Procedure: Pre-Anesthesia Assessment: - Prior to the procedure, a History and Physical was performed, and patient medications, allergies and sensitivities were reviewed. The patient's tolerance of previous anesthesia was reviewed. - ASA Grade Assessment: III - A patient with severe systemic disease. After obtaining informed consent, the scope was passed under direct vision. Throughout the procedure, the patient's blood pressure, pulse, and oxygen saturations were monitored continuously. The Scope was introduced through the mouth, and advanced to the duodenum and used to inject contrast into the bile duct and ventral pancreatic duct. The ERCP was accomplished with ease. The patient tolerated the procedure well. Findings: A tassel making machine operator film of the abdomen was obtained. Surgical clips, consistent with a previous cholecystectomy, were seen in the area of the right upper quadrant of the abdomen. The esophagus was successfully intubated under direct vision. The scope was advanced to a normal major papilla in the descending duodenum without detailed examination of the pharynx, larynx and associated structures, and upper GI tract. The upper GI tract was grossly normal. A 0.035 inch straight Glidewire was passed into the biliary tree through a [employer] Omni FS 35 sphincterotome. The sphncterotome was passed over the guidewire and the bile duct was then deeply cannulated. Contrast was injected. Choledocholithiasis was found in a nondilated duct. A 7 mm biliary sphincterotomy was made with a monofilament traction (standard) sphincterotome using ERBE electrocautery. There was no post-sphincterotomy bleeding. The sphinterotomy and the distal bile duct common with an 8 mm balloon dilator inflated for five minutes. The biliary tree was swept with a 10 mm balloon starting at the bifurcation. One large stone and sludge was removed from the duct. The cystic duct was not cannulated. Although all CBD stones appeared to have been removed, the presence of large amounts of air interfered with full evaluation. One 10 Fr by 7 cm temporary stent with a single external flap and a single internal flap was placed into the common bile duct. Bile flowed through the stent. The stent was in good position. The total fluoroscopy exposure time was 3 minutes and 48 seconds. Impression: - Choledocholithiasis was found. Complete removal was accomplished by biliary sphincterotomy and balloon extraction. - A biliary sphincterotomy was performed. - Spincterotomy was dilated to 8 mm. - The biliary tree was swept. - One temporary stent was placed into the common bile duct. Recommendation: - Repeat ERCP in 1 month to remove stent. Ean Hurt M.D. Ean Hurt MD 06/10/2018 2:50:38 PM This report has been signed electronically. Note Initiated On: 06/10/2018 12:31 PM Number of Addenda: 0 I attest to the content of the Intraoperative Record and orders documented therein, exceptions below {[id number]}
--- NOTE | 2018-06-10 14:53 | Fluoroscopy Report ---
INTRAOPERATIVE RADIOGRAPHS CLINICAL HISTORY: ERCP. Duct exploration. Fluoroscopy time: 228 seconds. FINDINGS: 7 spot fluoroscopic images of the right upper quadrant from an ERCP procedure are presented . Correlation is made with abdominal CT dated 06/09/2018. The common bile duct is dilated, and there ar e filling defects within the distal common bile duct consistent with choledocholithiasis. A balloon s weep of the common duct is performed. The final image shows a common bile duct stent in place. IMPRESSION: Intraoperative images from an ERCP procedure as above. See operative report for detailed findings. Electronically signed by: Bob Kennedy M.D. 06/10/2018 2:52 PM
--- NOTE | 2018-06-10 15:02 | Anesthesiology Progress Note ---
Date of Service June 10, 2018 Anesthesia Post Procedure Vital Signs Vital Signs: Temp Pulse Pulse Pulse Resp BP BP 06/10/18 14:55 88 18 140/69 06/10/18 14:51 97 H 24 150/83 H 06/10/18 14:50 98 H 19 06/10/18 14:45 78 14 138/78 06/10/18 14:40 82 14 139/75 06/10/18 14:36 36.8 C 88 102 H 14 147/76 H 147/76 H 06/10/18 13:11 37.1 C 91 H 20 131/85 06/10/18 07:27 36.7 C 73 16 141/82 H 06/09/18 22:53 36.5 C 79 16 140/79 06/09/18 20:25 36.6 C 75 18 06/09/18 20:09 82 18 145/98 H 06/09/18 19:49 89 18 06/09/18 18:10 77 18 06/09/18 16:21 36.5 C 72 20 158/83 H BP Pulse Ox 06/10/18 14:55 98 06/10/18 14:51 94 06/10/18 14:50 94 06/10/18 14:45 97 06/10/18 14:40 97 06/10/18 14:36 99 06/10/18 13:11 91 06/10/18 07:27 96 06/09/18 22:53 94 06/09/18 20:25 164/98 H 96 06/09/18 20:09 98 06/09/18 19:49 146/105 H 94 06/09/18 18:10 163/87 H 97 06/09/18 16:21 98 Pain Intensity Abdomen: Pain Intensity: 10 Notes Mental Status: alert / awake / arousable Patient Amnestic to Procedure: Yes Nausea / Vomiting: adequately controlled Pain: adequately controlled Airway Patency, RR, SpO2: stable & adequate BP & HR: stable & adequate Hydration State: stable & adequate Anesthetic Complications: no major complications apparent
[2018-06-10] MEDS ORDERED: TRAMADOL HCL 50 MG TABLET ONE (15:40)
[2018-06-10] MEDS: SODIUM CHLORIDE 0.9% 1000ML 1,000 ML IV SCH (16:22)
--- NOTE | 2018-06-10 17:18 | Hospitalist Progress Note ---
Date of Service June 10, 2018 Assessment & Plan (1) Choledocholithiasis: admission CT ABD/PELVIS: 1. The gallbladder surgically absent. There are numerous gallstones within a cystic duct remnant. 2. There is choledocholithiasis with a 16 mm calcified gallstone in the distal common duct at the ampulla. MRCP is unlikely to provide further information and ERCP is recommended. 3. There is mild intrahepatic biliary ductal dilatation, which has increased from the 2011 examination. 4. Mild colonic diverticulosis without CT evidence of acute diverticulitis. 06/10/18: ERCP with papillotomy, dilitation, stone extraction and stent placement continue NPO except meds and water continue IV fluids for now continue ciprofloxacin and flagyl continue with pain medications (2) Elevated liver enzymes: secondary to choledocholithiasis (3) HTN (hypertension): -continue lisinopril (4) Dyslipidemia: -hold statin for now (5) Hypothyroidism: -continue levothyroxine (6) Insomnia: -continue trazadone prn insomnia (7) Osteoarthritis: -can continue celebrex at this time -continue venlafaxine DVT Prophylaxis -SCDs Full Code Status phone number [phone] Subjective Patient has returned to [facility] after ERCP Patient on nasal cannula. IV fluids are running. Patient reports some abdominal discomfort as prior to the procedure but not any worse. no distress. denies problems with breathing. denies chest pain. Physical Exam Vital Signs (Past 24 Hours): Last Vital Signs Temp 36.8 C 06/10/18 16:31 Pulse 89 06/10/18 16:31 Resp 17 06/10/18 16:31 BP 142/80 H 06/10/18 16:31 Pulse Ox 97 06/10/18 16:31 Constitutional: WD/WN, vitals as above Eyes: PERRL, conjunctivae normal, anicteric sclerae EOM intact bilaterally ENMT: external ear and nose normal, oropharynx normal Neck: normal visual inspection and trachea midline Respiratory: normal respiratory effort, lungs clear to auscultation (on nasal cannula) Cardiovascular: Rate/Rhythm: regular rate and regular rhythm Gastrointestinal (Abdomen): Inspection/Auscultation: abdomen normal to inspection (no localized area of tenderness, bowel sounds present) Musculoskeletal: Head/Neck/Chest: normocephalic and head atraumatic Neurologic: PERRL, EOMI, accommodation nl, no face palsy, no dysarthria Psychiatric: A+Ox3, euthymic affect
[2018-06-10] MEDS: HYDROmorphone INJ 0.5 MG/0.5 ML SYR IV PRN ×2 (18:51→22:41)
[2018-06-10] MEDS: D5W AND LACTATED RINGERS 1,000 ML IV SCH ×2 (20:16→23:23)
[2018-06-10] MEDS ORDERED: SIMVASTATIN 20 MG TAB PO SCH (21:00)
[2018-06-11] MEDS: D5W AND LACTATED RINGERS 1,000 ML IV SCH ×4 (05:32→20:55)
[2018-06-11] MEDS: metroNIDAZOLE 500 MG/100 ML BAG IV SCH ×3 (05:32→21:38)
[2018-06-11] MEDS: HYDROmorphone INJ 0.5 MG/0.5 ML SYR IV PRN ×3 (05:32→11:01)
[2018-06-11] MEDS: LEVOTHYROXINE SODIUM 200 MCG TABLET PO SCH (05:32)
[2018-06-11 06:49] LABS: Eosinophils # (auto) 0.01 K/uL (0-0.5); Eosinophils % (auto) 0.1 %; Hematocrit (blood only) 38.9 % (42-52); Hemoglobin 13.1 g/dL (14.0-18.0); Immature Granulocytes # (auto) 0.02 K/uL (0.00-0.02); Immature Granulocytes % (auto) 0.2 %; Lymphocytes # (auto) 0.63 K/uL (1.2-3.4); Lymphocytes % (auto) 6.5 %; Mean Corpuscular Hgb Conc 33.7 g/dL (32-36); Mean Corpuscular Volume 92.8 fL (80-100); Mean Platelet Volume 9.4 fL (7.4-10.4); Monocytes # (auto) 0.63 K/uL (0.11-0.59); Monocytes % (auto) 6.5 %; Neutrophils # (auto) 8.38 K/uL (1.4-6.5); Neutrophils % (auto) 86.7 %; Platelet Count 183 K/uL (130-400); RDW Coefficient of Variation 13.2 % (11.5-14.5); RDW Standard Deviation 45.1 fL (36.4-46.3); Red Blood Count 4.19 M/uL (4.7-6.1); White Blood Count 9.67 K/uL (4.8-10.8)
[2018-06-11] MEDS ORDERED: KETOROLAC TROMETHAMINE 15 MG/ML VIAL IV ONE (07:12)
--- NOTE | 2018-06-11 07:27 | Anesthesiology Progress Note ---
Date of Service June 11, 2018 Anesthesia Post Procedure Vital Signs Vital Signs: Temp Pulse Pulse Pulse Pulse Resp BP 06/11/18 04:00 36.7 C 72 14 06/10/18 23:34 37.5 C 85 17 06/10/18 18:26 36.4 C L 89 17 06/10/18 17:28 91 H 17 06/10/18 16:31 36.8 C 89 17 06/10/18 16:09 89 17 06/10/18 15:25 36.8 C 82 18 06/10/18 15:17 37.6 C H 06/10/18 15:15 70 14 06/10/18 15:10 77 14 133/77 06/10/18 15:05 85 17 138/75 06/10/18 15:00 89 16 138/71 06/10/18 14:55 88 18 140/69 06/10/18 14:51 97 H 24 150/83 H 06/10/18 14:50 98 H 19 06/10/18 14:45 78 14 138/78 06/10/18 14:40 82 14 139/75 06/10/18 14:36 36.8 C 88 102 H 14 147/76 H 06/10/18 13:11 37.1 C 91 H 20 BP BP Pulse Ox 06/11/18 04:00 154/84 H 93 06/10/18 23:34 158/84 H 92 06/10/18 18:26 148/77 H 93 06/10/18 17:28 164/88 H 96 06/10/18 16:31 142/80 H 97 06/10/18 16:09 138/87 97 06/10/18 15:25 154/81 H 93 06/10/18 15:17 93 06/10/18 15:15 93 06/10/18 15:10 94 06/10/18 15:05 98 06/10/18 15:00 96 06/10/18 14:55 98 06/10/18 14:51 94 06/10/18 14:50 94 06/10/18 14:45 97 06/10/18 14:40 97 06/10/18 14:36 147/76 H 99 06/10/18 13:11 131/85 91 Pain Intensity Abdomen: Pain Intensity: 6 Notes Mental Status: alert / awake / arousable Patient Amnestic to Procedure: Yes Nausea / Vomiting: adequately controlled Pain: adequately controlled Airway Patency, RR, SpO2: stable & adequate BP & HR: stable & adequate Hydration State: stable & adequate Anesthetic Complications: no major complications apparent
[2018-06-11 07:39] LABS: Albumin Globulin Ratio 1.1 (0.9-2); Albumin Level 3.5 gm/dl (3.4-5.0); BUN Creatinine Ratio 12.5 (10-20); Bilirubin,Total 1.2 mg/dl (0.2-1); Calcium 8.3 mg/dl (8.5-10.1); Creatinine Clr Calc Pharmacy 111.7 ml/min; Est GFR (African American) 105.1; Est GFR (Non-African American) 90.7; Globulin 3.3 gm/dl (2.5-4.0); Potassium 3.7 mmol/L (3.5-5.1); Total Protein 6.8 gm/dl (6.4-8.2)
[2018-06-11 08:24] LABS: Bilirubin Direct 0.6 mg/dl (0-0.2)
[2018-06-11] MEDS: OMEGA-3 (PURIFIED FISH OIL) 1 GM CAP PO SCH (08:43)
[2018-06-11] MEDS: VENLAFAXINE HCL XR 37.5 MG CAPXR PO SCH (08:43)
[2018-06-11] MEDS: SENNA 8.6 MG TAB PO SCH (08:43)
[2018-06-11] MEDS: CIPROFLOXACIN 400 MG/200 ML BAG IV SCH ×2 (08:44→21:28)
[2018-06-11] MEDS: CeleBREX 200 MG CAP PO SCH (08:44)
[2018-06-11] MEDS: CHOLECALCIFEROL 1,000 UNITS TAB PO SCH (08:44)
--- NOTE | 2018-06-11 10:14 | Hospitalist Progress Note ---
Date of Service June 11, 2018 Assessment & Plan (1) Choledocholithiasis: admission CT ABD/PELVIS: 1. The gallbladder surgically absent. There are numerous gallstones within a cystic duct remnant. 2. There is choledocholithiasis with a 16 mm calcified gallstone in the distal common duct at the ampulla. MRCP is unlikely to provide further information and ERCP is recommended. 3. There is mild intrahepatic biliary ductal dilatation, which has increased from the 2011 examination. 4. Mild colonic diverticulosis without CT evidence of acute diverticulitis. 06/10/18: ERCP with papillotomy, dilitation, stone extraction and stent placement continue NPO except meds and water continue IV fluids for now continue ciprofloxacin and flagyl continue with pain medications as dilaudid 0.5 mg q2 hours as needed for pain while awake, tramadol 100 mg PO BID prn for pain, continue Celebrex 200 mg daily given 1 dose of Toradol 10 mg IV x 1 bowel regimen of senna and colace to prevent narcotic induce constipation (2) Elevated liver enzymes: Transaminitis secondary to choledocholithiasis currently downtrending after the ERCP and stone extraction with stent placement (3) HTN (hypertension): -continue lisinopril (4) Dyslipidemia: -hold statin for now (5) Hypothyroidism: -continue levothyroxine (6) Insomnia: -continue trazadone prn insomnia (7) Osteoarthritis: -can continue celebrex at this time -continue venlafaxine DVT Prophylaxis -SCDs Full Code Status phone number [phone] Subjective Patient reports he was able to sleep without much requests for pain medications However, with discomfort this morning of the abdomen. denies vomiting. denies chest pain. denies palpitations. breathing on room air and not short of breath Physical Exam Vital Signs (Past 24 Hours): Last Vital Signs Temp 36.7 C 06/11/18 08:27 Pulse 80 06/11/18 08:27 Resp 18 06/11/18 08:27 BP 140/82 06/11/18 08:27 Pulse Ox 96 06/11/18 08:27 Constitutional: WD/WN, vitals as above Eyes: PERRL, conjunctivae normal, anicteric sclerae EOM intact bilaterally ENMT: external ear and nose normal, oropharynx normal Neck: normal visual inspection and trachea midline Respiratory: normal respiratory effort, lungs clear to auscultation Cardiovascular: Rate/Rhythm: regular rate and regular rhythm Gastrointestinal (Abdomen): Inspection/Auscultation: abdomen normal to inspection (no localized area of tenderness, bowel sounds present) Musculoskeletal: Head/Neck/Chest: normocephalic and head atraumatic Neurologic: PERRL, EOMI, accommodation nl, no face palsy, no dysarthria Psychiatric: A+Ox3, euthymic affect
[2018-06-11] MEDS: LISINOPRIL 10 MG TAB PO SCH (10:49)
--- NOTE | 2018-06-11 11:40 | Gastroenterology Progress Note ---
Date of Service June 11, 2018 Assessment & Plan (1) Choledocholithiasis: Mr. Pepe Reeder is a 57 yr old male with RUQ pain, choledocholithiasis on CT. Plan: 1. LR at 200/h 2. Analgesics 3. Encouraged ambulation as possible as well as deep breath 4. Would continue bowel rest without clear liquids yet today just ice chips. 5. We will continue to follow patient closely Supervising Physician Co-Signing Physician Notes I have seen and examined the patient and discussed the management with Pepe Reeder. 57 male with a distant lap domonique, admitted with intermittent ruq pain, imaging c/w cbd stone and cystic duct stones. S/p ERCP on 06/10/[address] Lanier, sphincterotomy, cbd stent placed. Had some pain post procedure- lipase checked and elevated. Receiving IV LR. Sleepy when seen by myself on today's exam, mild pain with palpation of his abdomen. Agree wtih IV LR, NPO for today. GI will continue to follow through the weekend. Subjective Mr. Reeder is a 57-year-old male who underwent ERCP with sphincterotomy and removal of a 16 mm gallstone from the CBD. He experienced some upper abdomen pain soon after the completion of the ERCP. Lipase today over 1999 indicating pancreatitis. He tells me that he had quite a bit of pain over the night, that it is tolerable with pain medication. He is hemodynamically stable without tachycardia or diaphoresis. LR at 200/h. Constitutional: no fever, no chills and no weakness (Able to ambulate back and forth to the bathroom) Eyes: no dry eyes, no eye pain and no itchy eyes Ear, Nose, Mouth, Throat: no tinnitus, no dizziness and no hoarseness Increased pain with deep breath but no cough and no shortness of breath, no wheezing Cardiovascular: no chest pain, no palpitations and no edema Gastrointestinal: + abdominal pain (Upper abdomen) Past a small amount of gas this morning Genitourinary (Male): no dysuria, no difficulty urinating and no urinary hesitancy No jaundice, no diaphoresis Neurologic: no gait abnormality, no unsteadiness, no localized weakness and no loss of sensation Psychiatric: no behavioral changes, no depression, no irritability, no anxiety and no confusion Hematologic / Lymphatic: no easy bleeding, no coagulopathy, no lymphadenopathy and no unexplained weight loss Physical Exam Vital Signs (Past 24 Hours): Last Vital Signs Temp 36.7 C 06/11/18 08:27 Pulse 76 06/11/18 10:57 Resp 18 06/11/18 08:27 BP 134/73 06/11/18 10:57 Pulse Ox 96 06/11/18 08:27 Constitutional: WD/WN, vitals as above + obese (mildly) and healthy appearing Eyes: PERRL, conjunctivae normal, anicteric sclerae Neck: trachea midline, no thyromegaly Respiratory: normal respiratory effort, lungs clear to auscultation Cardiovascular: RRR, no murmur, no edema Gastrointestinal (Abdomen): Inspection/Auscultation: abdomen not distended Percussion/Palpation: + abdomen tender (Moderate, RUQ ) and abdomen soft; no ascites Skin: no rashes, warm and dry no jaundice Neurologic: PERRL, EOMI, accommodation nl, no face palsy, no dysarthria Lymphatic: no cervical or axillary lymphadenopathy Results & Data Diagnostic Findings Lipase 2033, AST was 1031 -> 397, ALT was 1091-> 938, T bilirubin 3.2-> 1.2.
[2018-06-11] MEDS: DOCUSATE SODIUM 100 MG CAP PO SCH ×2 (12:04→21:30)
[2018-06-11] MEDS ORDERED: HYDROmorphone INJ 1 MG/ML SYRINGE ONE (14:14)
[2018-06-11] MEDS: TRAMADOL HCL 50 MG TABLET PO PRN (15:59)
[2018-06-11] MEDS: HYDROmorphone INJ 1 MG/ML SYRINGE IV PRN ×4 (16:39→23:21)
[2018-06-12] MEDS: HYDROmorphone INJ 1 MG/ML SYRINGE IV PRN ×4 (01:36→07:36)
[2018-06-12] MEDS: D5W AND LACTATED RINGERS 1,000 ML IV SCH ×2 (03:18→08:04)
[2018-06-12] MEDS: TRAMADOL HCL 50 MG TABLET PO PRN ×2 (04:37→12:59)
[2018-06-12] MEDS: metroNIDAZOLE 500 MG/100 ML BAG IV SCH ×3 (05:28→22:54)
[2018-06-12] MEDS: LEVOTHYROXINE SODIUM 200 MCG TABLET PO SCH (05:28)
[2018-06-12] MEDS ORDERED: HYDROmorphone INJ 1 MG/ML SYRINGE IV STA (05:48)
[2018-06-12 06:40] LABS: Basophils # (auto) 0.01 K/uL (0-0.2); Basophils % (auto) 0.1 %; Eosinophils # (auto) 0.01 K/uL (0-0.5); Eosinophils % (auto) 0.1 %; Hematocrit (blood only) 37.7 % (42-52); Hemoglobin 12.5 g/dL (14.0-18.0); Immature Granulocytes # (auto) 0.01 K/uL (0.00-0.02); Immature Granulocytes % (auto) 0.1 %; Lymphocytes # (auto) 0.64 K/uL (1.2-3.4); Mean Corpuscular Hgb Conc 33.2 g/dL (32-36); Mean Corpuscular Volume 94.5 fL (80-100); Mean Platelet Volume 9.3 fL (7.4-10.4); Monocytes # (auto) 0.84 K/uL (0.11-0.59); Monocytes % (auto) 7.9 %; Neutrophils # (auto) 9.15 K/uL (1.4-6.5); Neutrophils % (auto) 85.8 %; Platelet Count 160 K/uL (130-400); RDW Coefficient of Variation 13.3 % (11.5-14.5); RDW Standard Deviation 45.8 fL (36.4-46.3); Red Blood Count 3.99 M/uL (4.7-6.1); White Blood Count 10.66 K/uL (4.8-10.8)
[2018-06-12 07:06] LABS: Albumin Level 3.2 gm/dl (3.4-5.0); BUN Creatinine Ratio 10.5 (10-20); Calcium 8.3 mg/dl (8.5-10.1); Creatinine Clr Calc Pharmacy 140.7 ml/min; Est GFR (African American) 117.7; Est GFR (Non-African American) 101.5; Potassium 3.6 mmol/L (3.5-5.1)
[2018-06-12 07:07] LABS: Albumin Globulin Ratio 0.9 (0.9-2); Bilirubin,Total 1.2 mg/dl (0.2-1); Globulin 3.4 gm/dl (2.5-4.0); Total Protein 6.6 gm/dl (6.4-8.2)
[2018-06-12] MEDS: CIPROFLOXACIN 400 MG/200 ML BAG IV SCH ×2 (09:20→20:31)
[2018-06-12] MEDS: SENNA 8.6 MG TAB PO SCH (09:25)
[2018-06-12] MEDS: OMEGA-3 (PURIFIED FISH OIL) 1 GM CAP PO SCH (09:25)
[2018-06-12] MEDS: VENLAFAXINE HCL XR 37.5 MG CAPXR PO SCH (09:25)
[2018-06-12] MEDS: LISINOPRIL 10 MG TAB PO SCH (09:26)
[2018-06-12] MEDS: CHOLECALCIFEROL 1,000 UNITS TAB PO SCH (09:26)
[2018-06-12] MEDS ORDERED: HYDROmorphone INJ 1 MG/ML SYRINGE IV PRN (09:30)
[2018-06-12] MEDS ORDERED: KETOROLAC TROMETHAMINE 15 MG/ML VIAL ONE (09:35)
[2018-06-12] MEDS: D5W AND 1/2NSS 1,000 ML IV SCH ×2 (11:33→20:17)
[2018-06-12] MEDS: DOCUSATE SODIUM 100 MG CAP PO SCH ×2 (11:37→22:11)
[2018-06-12] MEDS: POLYETHYLENE (MIRALAX) 17 GM PACK PO PRN (12:58)
--- NOTE | 2018-06-12 14:21 | Hospitalist Progress Note ---
Date of Service June 12, 2018 Assessment & Plan (1) Choledocholithiasis: admission CT ABD/PELVIS: 1. The gallbladder surgically absent. There are numerous gallstones within a cystic duct remnant. 2. There is choledocholithiasis with a 16 mm calcified gallstone in the distal common duct at the ampulla. MRCP is unlikely to provide further information and ERCP is recommended. 3. There is mild intrahepatic biliary ductal dilatation, which has increased from the 2011 examination. 4. Mild colonic diverticulosis without CT evidence of acute diverticulitis. 06/10/18: ERCP with papillotomy, dilitation, stone extraction and stent placement continue NPO except meds and water continue IV fluids for now continue ciprofloxacin and flagyl bowel regimen of senna and colace to prevent narcotic induce constipation will discontinue dilaudid as patient reports that it is not offering pain pain, continue narcotic as oxycodone 5 mg q6 hour for pain, continue tramadol 100 mg PO BID prn for pain,stop Celebrex 200 mg daily and replace as Toradol 15 mg IV q6h prn for pain (2) Elevated liver enzymes: Transaminitis secondary to choledocholithiasis currently downtrending after the ERCP and stone extraction with stent placement (3) HTN (hypertension): -continue lisinopril (4) Dyslipidemia: -hold statin for now (5) Hypothyroidism: -continue levothyroxine (6) Insomnia: -continue trazadone prn insomnia (7) Osteoarthritis: -on NSAIDs -continue venlafaxine DVT Prophylaxis -SCDs Full Code Status phone number [phone] Subjective Patient having more abdominal discomfort today compared to yesterday. Changes have been made to patient's pain medications but not offering complete relief. he is able to sit up in the chair. he is verbal. no vomiting. no bowel movement today Physical Exam Vital Signs (Past 24 Hours): Last Vital Signs Temp 36.7 C 06/12/18 11:33 Pulse 82 06/12/18 11:33 Resp 16 06/12/18 11:33 BP 132/70 06/12/18 11:33 Pulse Ox 97 06/12/18 11:33 Constitutional: WD/WN, vitals as above Eyes: PERRL, conjunctivae normal, anicteric sclerae EOM intact bilaterally ENMT: external ear and nose normal, oropharynx normal Neck: normal visual inspection and trachea midline Respiratory: normal respiratory effort, lungs clear to auscultation Cardiovascular: Rate/Rhythm: regular rate and regular rhythm Gastrointestinal (Abdomen): Inspection/Auscultation: abdomen normal to inspection Percussion/Palpation: + abdomen tender (right quadrants) and abdomen soft Musculoskeletal: Head/Neck/Chest: normocephalic and head atraumatic Neurologic: PERRL, EOMI, accommodation nl, no face palsy, no dysarthria Psychiatric: A+Ox3, euthymic affect
[2018-06-12] MEDS ORDERED: OXYCODONE HCL IR 5 MG TAB (IMMEDIATE RELEASE) ONE (14:39)
[2018-06-12] MEDS: KETOROLAC TROMETHAMINE 15 MG/ML VIAL IV PRN ×2 (15:31→22:07)
[2018-06-12] MEDS ORDERED: MoRPHine SULFATE 2 MG/ML CARP IV STA (18:39)
[2018-06-12] MEDS: ONDANSETRON INJ 2 MG/ML 2 ML VIAL IV PRN (19:02)
[2018-06-12] MEDS: fentaNYL 12 MCG/HR TDSY TD SCH (19:24)
[2018-06-12] MEDS: OXYCODONE HCL IR 5 MG TAB (IMMEDIATE RELEASE) PO PRN (20:30)
[2018-06-13] MEDS: D5W AND LACTATED RINGERS 1,000 ML IV SCH (00:36)
[2018-06-13] MEDS: CeleBREX 200 MG CAP PO SCH (00:37)
[2018-06-13] MEDS: TRAMADOL HCL 50 MG TABLET PO PRN ×2 (00:41→09:59)
[2018-06-13] MEDS: CHECK FENTANYL PATCH PLACEMENT SCH ×3 (00:42→16:24)
[2018-06-13] MEDS: OXYCODONE HCL IR 5 MG TAB (IMMEDIATE RELEASE) PO PRN ×4 (01:58→22:18)
[2018-06-13] MEDS: D5W AND 1/2NSS 1,000 ML IV SCH ×2 (04:50→12:10)
[2018-06-13] MEDS: KETOROLAC TROMETHAMINE 15 MG/ML VIAL IV PRN ×3 (04:50→18:42)
[2018-06-13] MEDS: metroNIDAZOLE 500 MG/100 ML BAG IV SCH ×3 (04:53→22:19)
[2018-06-13] MEDS: LEVOTHYROXINE SODIUM 200 MCG TABLET PO SCH (04:53)
[2018-06-13 06:22] LABS: Basophils # (auto) 0.01 K/uL (0-0.2); Basophils % (auto) 0.1 %; Eosinophils # (auto) 0.03 K/uL (0-0.5); Eosinophils % (auto) 0.3 %; Hematocrit (blood only) 36.2 % (42-52); Hemoglobin 12.4 g/dL (14.0-18.0); Immature Granulocytes # (auto) 0.03 K/uL (0.00-0.02); Immature Granulocytes % (auto) 0.3 %; Lymphocytes # (auto) 0.65 K/uL (1.2-3.4); Lymphocytes % (auto) 6.3 %; Mean Corpuscular Hgb Conc 34.3 g/dL (32-36); Mean Corpuscular Volume 92.8 fL (80-100); Mean Platelet Volume 9.3 fL (7.4-10.4); Monocytes # (auto) 0.77 K/uL (0.11-0.59); Monocytes % (auto) 7.5 %; Neutrophils # (auto) 8.76 K/uL (1.4-6.5); Neutrophils % (auto) 85.5 %; Platelet Count 149 K/uL (130-400); RDW Coefficient of Variation 12.8 % (11.5-14.5); RDW Standard Deviation 43.4 fL (36.4-46.3); White Blood Count 10.25 K/uL (4.8-10.8)
[2018-06-13 06:55] LABS: Albumin Level 2.9 gm/dl (3.4-5.0); BUN Creatinine Ratio 17.9 (10-20); Calcium 8.1 mg/dl (8.5-10.1); Creatinine Clr Calc Pharmacy 165.7 ml/min; Est GFR (African American) 125.8; Est GFR (Non-African American) 108.6; Potassium 3.5 mmol/L (3.5-5.1)
[2018-06-13 06:57] LABS: Albumin Globulin Ratio 0.8 (0.9-2); Bilirubin,Total 1.3 mg/dl (0.2-1); Globulin 3.6 gm/dl (2.5-4.0); Total Protein 6.5 gm/dl (6.4-8.2)
[2018-06-13] MEDS ORDERED: POTASSIUM CHLORIDE 20 MEQ TABCR PO STA (07:28)
[2018-06-13] MEDS: POLYETHYLENE (MIRALAX) 17 GM PACK PO PRN (08:08)
[2018-06-13] MEDS: CIPROFLOXACIN 400 MG/200 ML BAG IV SCH ×2 (09:59→21:30)
[2018-06-13] MEDS: DOCUSATE SODIUM 100 MG CAP PO SCH ×2 (10:02→21:30)
[2018-06-13] MEDS: VENLAFAXINE HCL XR 37.5 MG CAPXR PO SCH (10:02)
[2018-06-13] MEDS: LISINOPRIL 10 MG TAB PO SCH (10:04)
[2018-06-13] MEDS: SENNA 8.6 MG TAB PO SCH (10:04)
[2018-06-13] MEDS: CHOLECALCIFEROL 1,000 UNITS TAB PO SCH (10:04)
[2018-06-13] MEDS ORDERED: BISACODYL 10 MG SUPP PR PRN (10:44)
[2018-06-13] MEDS ORDERED: NALOXONE HCL 0.4 MG/1 ML VIAL/CARP IV PRN (10:55)
[2018-06-13] MEDS: SODIUM CHLORIDE 0.9% 1000ML 1,000 ML IV SCH (13:51)
[2018-06-13] MEDS: LACTATED RINGER'S 1,000 ML IV SCH ×2 (14:12→22:24)
--- NOTE | 2018-06-13 14:14 | Gastroenterology Progress Note ---
Date of Service June 13, 2018 Pt continues to have pain, constipation. Hungry, but reluctant to eat. Remains on narcotics Appears comfortable Abd: soft NT by my exam Labs reviewed A/P: ERCP for choledocholithiasis, post ERCP pancreatitis - Pt with persistent unexplained pain, will repeat CT - ddx = progresison of pancreatitis, ileus. Trial of Relistor. Physical Exam Vital Signs (Past 24 Hours): Last Vital Signs Temp 36.8 C 06/13/18 06:53 Pulse 77 06/13/18 06:53 Resp 19 06/13/18 06:53 BP 118/69 06/13/18 06:53 Pulse Ox 95 06/13/18 06:53
--- NOTE | 2018-06-13 14:47 | Hospitalist Progress Note ---
Date of Service June 13, 2018 Assessment & Plan (1) Choledocholithiasis: admission CT ABD/PELVIS: 1. The gallbladder surgically absent. There are numerous gallstones within a cystic duct remnant. 2. There is choledocholithiasis with a 16 mm calcified gallstone in the distal common duct at the ampulla. MRCP is unlikely to provide further information and ERCP is recommended. 3. There is mild intrahepatic biliary ductal dilatation, which has increased from the 2011 examination. 4. Mild colonic diverticulosis without CT evidence of acute diverticulitis. 06/10/18: ERCP with papillotomy, dilitation, stone extraction and stent placement continue NPO except meds and water continue IV fluids for now continue ciprofloxacin and flagyl Constipation: on bowel regimen of senna and colace and dulcolax, Methylnaltrexone ordered by gastronenterology service on 06/13/18 Abdominal Pain: continue narcotic as oxycodone 5 mg q6 hour for pain, continue tramadol 100 mg PO BID prn for pain, Toradol 15 mg IV q6h prn for pain, on Fentanyl patch Will hold off on giving [employer] pump morphine for now - [employer] pump was not started today but in the room in case pain is out of control CT abdomen and pelvis with IV contrast ordered for 06/13/18 (2) Elevated liver enzymes: Transaminitis secondary to choledocholithiasis currently downtrending after the ERCP and stone extraction with stent placement (3) HTN (hypertension): -continue lisinopril (4) Dyslipidemia: -hold statin for now (5) Hypothyroidism: -continue levothyroxine (6) Insomnia: -continue trazadone prn insomnia (7) Osteoarthritis: -on NSAIDs -continue venlafaxine DVT Prophylaxis -SCDs Full Code Status phone number [phone] Subjective he is verbal. no vomiting. no bowel movement today. Patient still with abdominal pain but appears to be somewhat less uncomfortable compared to yesterday. Gastroenterology service has seen the patient and ordered CT abdomen and pelvis with IV contrast. Will hold off on giving [employer] pump morphine for now - [employer] pump was not started today but in the room in case pain is out of control Physical Exam Vital Signs (Past 24 Hours): Last Vital Signs Temp 36.8 C 06/13/18 06:53 Pulse 77 06/13/18 06:53 Resp 19 06/13/18 06:53 BP 118/69 06/13/18 06:53 Pulse Ox 95 06/13/18 06:53 Constitutional: WD/WN, vitals as above Eyes: PERRL, conjunctivae normal, anicteric sclerae EOM intact bilaterally ENMT: external ear and nose normal, oropharynx normal Neck: normal visual inspection and trachea midline Respiratory: normal respiratory effort, lungs clear to auscultation Cardiovascular: Rate/Rhythm: regular rate and regular rhythm Gastrointestinal (Abdomen): Inspection/Auscultation: abdomen normal to inspection Percussion/Palpation: abdomen soft (no peritoneal signs, bowel sounds present) Musculoskeletal: Head/Neck/Chest: normocephalic and head atraumatic Neurologic: PERRL, EOMI, accommodation nl, no face palsy, no dysarthria Psychiatric: A+Ox3, euthymic affect
[2018-06-13] MEDS: METHYLNALTREXONE BROMIDE 12 MG/0.6 ML VIAL SQ SCH (16:18)
[2018-06-13] MEDS ORDERED: IOVERSOL 100ml IV PRN (17:28)
--- NOTE | 2018-06-13 17:53 | CT Scan Report ---
CT abd pelvis oral and IV con CT DOSE: 1071.48 mGy.cm HISTORY: Pain. Nausea. r/o pancreatitis TECHNIQUE: Multiaxial CT images of the abdomen and pelvis were performed following the use of intrave nous and oral contrast. A dose lowering technique was utilized adhering to the principles of ALARA. COMPARISON STUDY: 06/09/2018 FINDINGS: Bibasilar atelectasis. Liver is uniform throughout. There is been placement of a common samy t stent. Stent is in good position. Several gallstones remain within a cystic duct remnant. Pancreatic duct shows no evidence for distention. There is infiltrative change surrounding the pancreatic head and uncinate process. This appears consi stent with that of pancreatitis. There is mild reactive edema of the wall of the duodenal sweep. No current evidence for abscess collection or pseudocyst. The vasculature and appears to enhance appr opriately with no evidence for thrombosis. Kidneys are uniform in appearance. Bowel pattern overall i s nonobstructive. Appendix is normal. Several sigmoid diverticuli. Bladder is midline. IMPRESSION: 1. Pancreatitis of the pancreatic head and uncinate process. 2. Localized infiltrative change of the peripancreatic region as well as mesentery. 3. No evidence for abscess, collection or pseudocyst formation at this time. 4. Moderate reactive wall edema of the duodenal sweep. 5. Interval placement of a common bile duct stent in good position. 6. Several gallstones remain present within the cystic duct remnant. The above report was generated using voice recognition software. It may contain grammatical, syntax or spelling errors. Electronically signed by: Rahul Israel M.D. 06/13/2018 5:52 PM
[2018-06-13] MEDS ORDERED: MoRPHine SULFATE 4 MG/ML 1 ML CARP\\VIAL IV STA (23:14)
[2018-06-13] MEDS ORDERED: HYDROmorphone INJ 0.5 MG/0.5 ML SYR IV STA (23:20)
[2018-06-14] MEDS: TRAZODONE HCL 100 MG TAB PO PRN (00:04)
[2018-06-14] MEDS: CHECK FENTANYL PATCH PLACEMENT SCH ×4 (00:08→23:33)
[2018-06-14] MEDS: KETOROLAC TROMETHAMINE 15 MG/ML VIAL IV PRN ×2 (03:06→17:48)
[2018-06-14] MEDS: metroNIDAZOLE 500 MG/100 ML BAG IV SCH ×4 (05:36→21:31)
[2018-06-14] MEDS: LEVOTHYROXINE SODIUM 200 MCG TABLET PO SCH (05:41)
[2018-06-14] MEDS: LACTATED RINGER'S 1,000 ML IV SCH ×3 (06:43→20:59)
[2018-06-14] MEDS: OXYCODONE HCL IR 5 MG TAB (IMMEDIATE RELEASE) PO PRN ×2 (07:49→21:31)
[2018-06-14] MEDS: ONDANSETRON INJ 2 MG/ML 2 ML VIAL IV PRN (07:49)
[2018-06-14] MEDS ORDERED: KETOROLAC TROMETHAMINE 15 MG/ML VIAL IV ONE (08:35)
[2018-06-14] MEDS: SENNA 8.6 MG TAB PO SCH (08:42)
[2018-06-14] MEDS: LISINOPRIL 10 MG TAB PO SCH (08:42)
[2018-06-14] MEDS: DOCUSATE SODIUM 100 MG CAP PO SCH ×2 (08:42→21:00)
[2018-06-14] MEDS: VENLAFAXINE HCL XR 37.5 MG CAPXR PO SCH (08:42)
[2018-06-14] MEDS: CIPROFLOXACIN 400 MG/200 ML BAG IV SCH ×2 (08:44→20:59)
--- NOTE | 2018-06-14 10:01 | Hospitalist Progress Note ---
Date of Service June 14, 2018 Assessment & Plan (1) Choledocholithiasis: admission CT ABD/PELVIS: 1. The gallbladder surgically absent. There are numerous gallstones within a cystic duct remnant. 2. There is choledocholithiasis with a 16 mm calcified gallstone in the distal common duct at the ampulla. MRCP is unlikely to provide further information and ERCP is recommended. 3. There is mild intrahepatic biliary ductal dilatation, which has increased from the 2011 examination. 4. Mild colonic diverticulosis without CT evidence of acute diverticulitis. 06/10/18: ERCP with sphincterotomy and removal of a 16 mm gallstone from the common bile duct and common bile duct stent was placed continue NPO except meds and water continue IV fluids continue ciprofloxacin and flagyl Constipation: on bowel regimen of senna and colace and dulcolax, Methylnaltrexone ordered by gastronenterology service on 06/13/18. patient made bowel movement on 06/13/18 Abdominal Pain: abdominal pain sill persisted despite ERCP and common bile duct stent CT abdomen and pelvis with IV contrast ordered for 06/13/18 and was remarkable for Pancreatitis and several gallstones remain present within the cystic duct remnant 1. Pancreatitis of the pancreatic head and uncinate process. 2. Localized infiltrative change of the peripancreatic region as well as mesentery. 3. No evidence for abscess, collection or pseudocyst formation at this time. 4. Moderate reactive wall edema of the duodenal sweep. 5. Interval placement of a common bile duct stent in good position. 6. Several gallstones remain present within the cystic duct remnant. continue narcotic as oxycodone 5 mg q6 hour for pain, continue tramadol 100 mg PO BID prn for pain, Toradol 15 mg IV q6h prn for pain, on Fentanyl patch 06/14/18 start [employer] pump of morphine 0.5 mg per hour (2) Elevated liver enzymes: Transaminitis secondary to choledocholithiasis have downtrended after the ERCP and stone extraction with stent placement (3) HTN (hypertension): pain likely worsening hypertension increase lisinopril from 10 mg to 20 mg daily (4) Dyslipidemia: -hold statin for now (5) Hypothyroidism: -continue levothyroxine (6) Insomnia: -continue trazadone prn insomnia (7) Osteoarthritis: -on NSAIDs -continue venlafaxine DVT Prophylaxis -SCDs Full Code Status phone number [phone] Subjective Patient continues to report frustration with pain control. He is willing to try [employer] pump of morphine. Patient denies vomiting. Patient reports that his focus on abdominal pain that he has not been walking very much. Patient denies shortness of breath or chest discomfort. His at bedside and present during physical exam and conversation Physical Exam Vital Signs (Past 24 Hours): Last Vital Signs Temp 36.8 C 06/14/18 07:43 Pulse 82 06/14/18 07:43 Resp 14 06/14/18 07:43 BP 170/106 H 06/14/18 07:43 Pulse Ox 95 06/14/18 07:43 Constitutional: WD/WN, vitals as above Eyes: PERRL, conjunctivae normal, anicteric sclerae EOM intact bilaterally ENMT: external ear and nose normal, oropharynx normal Neck: normal visual inspection and trachea midline Respiratory: normal respiratory effort, lungs clear to auscultation Cardiovascular: Rate/Rhythm: regular rate and regular rhythm Gastrointestinal (Abdomen): Inspection/Auscultation: abdomen normal to inspection Percussion/Palpation: abdomen soft (no peritoneal signs, bowel sounds present) Musculoskeletal: Head/Neck/Chest: normocephalic and head atraumatic Neurologic: PERRL, EOMI, accommodation nl, no face palsy, no dysarthria Psychiatric: A+Ox3, euthymic affect
[2018-06-14] MEDS ORDERED: LISINOPRIL 10 MG TAB PO ONE (10:15)
[2018-06-14] MEDS: MoRPHine SULFATE PCA 50 MG/50ML IV SCH ×4 (10:30→22:56)
[2018-06-14] MEDS: SODIUM CHLORIDE 0.9% 1000ML 1,000 ML IV SCH (10:32)
--- NOTE | 2018-06-14 16:07 | Gastroenterology Progress Note ---
Date of Service June 14, 2018 Assessment & Plan (1) Choledocholithiasis: (2) Pancreatitis: Patient's abdominal pain is somewhat improved today. LFTs/amylase better. Would plan to advance to clears tomorrow morning. If pain worsens, will make NPO again. Supervising Physician Co-Signing Physician Notes I have personally seen and examined the patient with Benita Fletcher PA-C. Her note reflects my exam and findings. I agree with her impression and plan. Slowly improving. Less pain. Labs look great. Cont NPO but give clears tomorrow am as trial. Julien Chowdhury M.D. Subjective 57 year old male with choledocholithiasis s/p ERCP with sphincterotomy and stent placement, developed post ERCP pancreatitis. continues with epigastric abdominal pain radiating to the back, but somewhat improved with morphine today. No n/v or heartburn. Moved bowels a small amount yesterday. Remains NPO. Labs - including LFTs and Lipase improving significantly. Constitutional: no fatigue and no weight loss Eyes: no eye pain and no worsening vision Ear, Nose, Mouth, Throat: no ear pain, no hearing loss, no nasal congestion and no sore throat Respiratory: no cough, no chest congestion and no wheezing Cardiovascular: no chest pain and no dyspnea Gastrointestinal: as per Subjective / HPI Musculoskeletal: no joint pain Integumentary: no rash and no pruritus Neurologic: no tingling, no numbness and no dizziness Psychiatric: no suicidal ideation and no confusion Endocrine: no cold intolerance and no heat intolerance Hematologic / Lymphatic: no easy bleeding and no easy bruising Allergy / Immunological: no problem reported Physical Exam Vital Signs (Past 24 Hours): Last Vital Signs Temp 37.6 C H 06/14/18 14:33 Pulse 91 H 06/14/18 14:33 Resp 12 06/14/18 14:33 BP 162/84 H 06/14/18 14:33 Pulse Ox 93 06/14/18 14:33 Constitutional: no acute distress Eyes: + anicteric sclerae ENMT: external ear and nose normal, oropharynx normal Neck: normal visual inspection Respiratory: normal respiratory effort, lungs clear to auscultation Cardiovascular: Rate/Rhythm: regular rate and regular rhythm Heart Sounds: no murmur Gastrointestinal (Abdomen): Inspection/Auscultation: + hypoactive bowel sounds Percussion/Palpation: + abdomen tender (epigastrium) and abdomen soft Musculoskeletal: Head/Neck/Chest: normocephalic and head atraumatic Skin: no rashes, warm and dry Neurologic: moves all extremities; no focal motor deficits Psychiatric: Orientation: alert and oriented x 3
[2018-06-14] MEDS: TRAMADOL HCL 50 MG TABLET PO PRN (22:38)
[2018-06-15] MEDS: KETOROLAC TROMETHAMINE 15 MG/ML VIAL IV PRN ×4 (00:51→20:39)
[2018-06-15] MEDS: metroNIDAZOLE 500 MG/100 ML BAG IV SCH ×3 (05:10→23:05)
[2018-06-15] MEDS: LEVOTHYROXINE SODIUM 200 MCG TABLET PO SCH (05:10)
[2018-06-15] MEDS: OXYCODONE HCL IR 5 MG TAB (IMMEDIATE RELEASE) PO PRN (05:10)
[2018-06-15] MEDS: LACTATED RINGER'S 1,000 ML IV SCH ×3 (06:13→22:10)
[2018-06-15 08:26] LABS: Albumin Level 2.7 gm/dl (3.4-5.0); BUN Creatinine Ratio 27.6 (10-20); Calcium 8.3 mg/dl (8.5-10.1); Creatinine Clr Calc Pharmacy 168.6 ml/min; Est GFR (African American) 127.6; Est GFR (Non-African American) 110.1; Potassium 3.7 mmol/L (3.5-5.1)
[2018-06-15 08:30] LABS: Albumin Globulin Ratio 0.7 (0.9-2); Bilirubin,Total 0.8 mg/dl (0.2-1); Globulin 3.8 gm/dl (2.5-4.0); Total Protein 6.5 gm/dl (6.4-8.2)
[2018-06-15] MEDS: fentaNYL 12 MCG/HR TDSY TD SCH (09:22)
[2018-06-15] MEDS: CHECK FENTANYL PATCH PLACEMENT SCH ×3 (09:23→23:28)
[2018-06-15] MEDS: VENLAFAXINE HCL XR 37.5 MG CAPXR PO SCH (09:24)
[2018-06-15] MEDS: LISINOPRIL 20 MG TAB PO SCH (09:24)
[2018-06-15] MEDS: DOCUSATE SODIUM 100 MG CAP PO SCH ×2 (09:24→20:56)
[2018-06-15] MEDS: METHYLNALTREXONE BROMIDE 12 MG/0.6 ML VIAL SQ SCH (09:25)
[2018-06-15] MEDS: CIPROFLOXACIN 400 MG/200 ML BAG IV SCH ×2 (09:25→20:48)
[2018-06-15] MEDS: SENNA 8.6 MG TAB PO SCH (09:25)
--- NOTE | 2018-06-15 10:26 | Hospitalist Progress Note ---
Date of Service June 15, 2018 Assessment & Plan (1) Choledocholithiasis: admission CT ABD/PELVIS: 1. The gallbladder surgically absent. There are numerous gallstones within a cystic duct remnant. 2. There is choledocholithiasis with a 16 mm calcified gallstone in the distal common duct at the ampulla. MRCP is unlikely to provide further information and ERCP is recommended. 3. There is mild intrahepatic biliary ductal dilatation, which has increased from the 2011 examination. 4. Mild colonic diverticulosis without CT evidence of acute diverticulitis. 06/10/18: ERCP with sphincterotomy and removal of a 16 mm gallstone from the common bile duct and common bile duct stent was placed continue NPO except meds and water continue IV fluids continue ciprofloxacin and flagyl which were started on 06/09/18 Constipation: on bowel regimen of senna and colace and dulcolax, Methylnaltrexone ordered by gastronenterology service on 06/13/18. patient has since been able to make bowel movements Abdominal Pain: abdominal pain sill persisted despite ERCP and common bile duct stent CT abdomen and pelvis with IV contrast ordered for 06/13/18 and was remarkable for Pancreatitis and several gallstones remain present within the cystic duct remnant 1. Pancreatitis of the pancreatic head and uncinate process. 2. Localized infiltrative change of the peripancreatic region as well as mesentery. 3. No evidence for abscess, collection or pseudocyst formation at this time. 4. Moderate reactive wall edema of the duodenal sweep. 5. Interval placement of a common bile duct stent in good position. 6. Several gallstones remain present within the cystic duct remnant. continue narcotic as oxycodone 5 mg q6 hour for pain, continue tramadol 100 mg PO BID prn for pain, Toradol 15 mg IV q6h prn for pain, on Fentanyl patch 06/14/18 started SHOE STITCHER morphine pump 06/15/18 hold off on SHOE STITCHER morphine pump for now as pain appears improved 06/15/18 on liquid diet and will advance as tolerated (2) Elevated liver enzymes: Transaminitis secondary to choledocholithiasis transaminitis have downtrended after the ERCP and stone extraction with stent placement (3) HTN (hypertension): pain likely worsened hypertension on lisinopril 20 mg daily (4) Dyslipidemia: -hold statin for now (5) Hypothyroidism: -continue levothyroxine (6) Insomnia: -continue trazadone prn insomnia (7) Osteoarthritis: -on NSAIDs -continue venlafaxine DVT Prophylaxis -SCDs Full Code Status phone number [phone] Subjective Patient made bowel movement this AM. He appears to have tolerated liquid diet for breakfast. His abdominal pain at the time of current exam appears to have improved. No vomiting. denies shortness of breath or chest discomfort. Physical Exam Vital Signs (Past 24 Hours): Last Vital Signs Temp 36.6 C 06/15/18 07:57 Pulse 84 06/15/18 07:57 Resp 16 06/15/18 07:57 BP 155/93 H 06/15/18 07:57 Pulse Ox 96 06/15/18 07:57 Constitutional: WD/WN, vitals as above Eyes: PERRL, conjunctivae normal, anicteric sclerae EOM intact bilaterally ENMT: external ear and nose normal, oropharynx normal Neck: normal visual inspection and trachea midline Respiratory: normal respiratory effort, lungs clear to auscultation Cardiovascular: Rate/Rhythm: regular rate and regular rhythm Gastrointestinal (Abdomen): normal bowel sounds, soft, nontender, no hepatosplenomegaly Musculoskeletal: Head/Neck/Chest: normocephalic and head atraumatic Neurologic: PERRL, EOMI, accommodation nl, no face palsy, no dysarthria Psychiatric: A+Ox3, euthymic affect
--- NOTE | 2018-06-15 11:30 | Gastroenterology Progress Note ---
Date of Service June 15, 2018 Assessment & Plan (1) Pancreatitis: Continue clear liquids today and if continues to do well would advance to low fat tomorrow. Monitor LFTs through normalization. Supervising Physician Co-Signing Physician Notes I have personally seen and examined the patient with Benita Fletcher PA-C. Her note reflects my exam and findings. I agree with her impression and plan. Looks great today. Tolerated clears and very little remaining abdominal discomfort. Advance diet as tolerates and consider D/C with out patient GI follow up tomorrow if continues to do well. Julien Chowdhury M.D. Subjective Patient feeling much better this morning. Tolerated clear liquid diet. Walking the halls. Pain improved, but still mildly present. LFTs continue to improve. Constitutional: no fever, no chills, no fatigue and no weight loss Eyes: no eye pain and no worsening vision Ear, Nose, Mouth, Throat: no ear pain, no hearing loss, no nasal congestion and no sore throat Respiratory: no cough, no chest congestion and no wheezing Cardiovascular: no chest pain and no dyspnea Gastrointestinal: as per Subjective / HPI Musculoskeletal: no joint pain Integumentary: no rash and no pruritus Neurologic: no tingling, no numbness and no dizziness Psychiatric: no suicidal ideation and no confusion Endocrine: no cold intolerance and no heat intolerance Hematologic / Lymphatic: no easy bleeding and no easy bruising Allergy / Immunological: no problem reported Physical Exam Vital Signs (Past 24 Hours): Last Vital Signs Temp 36.6 C 06/15/18 07:57 Pulse 84 06/15/18 07:57 Resp 16 06/15/18 07:57 BP 155/93 H 06/15/18 07:57 Pulse Ox 96 06/15/18 07:57 Constitutional: WD/WN, vitals as above no acute distress Eyes: + anicteric sclerae ENMT: external ear and nose normal, oropharynx normal Neck: normal visual inspection Respiratory: normal respiratory effort, lungs clear to auscultation Cardiovascular: Rate/Rhythm: regular rate and regular rhythm Heart Sounds: no murmur Gastrointestinal (Abdomen): Inspection/Auscultation: + hypoactive bowel sounds; abdomen not distended Percussion/Palpation: + abdomen tender (epigastrium/RUQ) and abdomen soft Musculoskeletal: Head/Neck/Chest: normocephalic and head atraumatic Skin: no rashes, warm and dry Neurologic: moves all extremities; no focal motor deficits Psychiatric: Orientation: alert and oriented x 3 Results & Data Laboratory Results Laboratory Results - last 24 hr 06/15/18 07:28 Sodium 136 Potassium 3.7 Chloride 101 Carbon Dioxide 27 Anion Gap 8.0 BUN 16 Creatinine 0.60 Est Cr Clr Drug Dosing 168.6 Est GFR ( Amer) 127.6 Est GFR (Non-Af Amer) 110.1 BUN/Creatinine Ratio 27.6 H Glucose 101 H Calcium 8.3 L Total Bilirubin 0.8 AST 20 ALT 169 H Alkaline Phosphatase 133 H Total Protein 6.5 Albumin 2.7 L Globulin 3.8 Albumin/Globulin Ratio 0.7 L
[2018-06-15] MEDS: SODIUM CHLORIDE 0.9% 1000ML 1,000 ML IV SCH (11:52)
[2018-06-15] MEDS: TRAMADOL HCL 50 MG TABLET PO PRN (12:55)
[2018-06-16] MEDS: KETOROLAC TROMETHAMINE 15 MG/ML VIAL IV PRN ×2 (02:10→08:34)
[2018-06-16] MEDS: LACTATED RINGER'S 1,000 ML IV SCH (05:41)
[2018-06-16] MEDS: LEVOTHYROXINE SODIUM 200 MCG TABLET PO SCH (05:42)
[2018-06-16] MEDS: metroNIDAZOLE 500 MG/100 ML BAG IV SCH (05:42)
[2018-06-16] MEDS: OXYCODONE HCL IR 5 MG TAB (IMMEDIATE RELEASE) PO PRN (05:43)
[2018-06-16] MEDS: CHECK FENTANYL PATCH PLACEMENT SCH (08:37)
[2018-06-16] MEDS: SENNA 8.6 MG TAB PO SCH (08:37)
[2018-06-16] MEDS: DOCUSATE SODIUM 100 MG CAP PO SCH (08:37)
[2018-06-16] MEDS: CIPROFLOXACIN 400 MG/200 ML BAG IV SCH (08:38)
[2018-06-16] MEDS: VENLAFAXINE HCL XR 37.5 MG CAPXR PO SCH (08:38)
[2018-06-16] MEDS: LISINOPRIL 20 MG TAB PO SCH (08:38)
--- NOTE | 2018-06-16 08:58 | Gastroenterology Progress Note ---
Date of Service June 16, 2018 Assessment & Plan (1) Pancreatitis: Pt is a 57 y/o male admitted w gallstone pancreatitis s/p ERCP w choledocholithiasis removal, sphincterectomy, and biliary stent placement on 06/10/18. He is s/p cholecystectomy but has remnant cystic duct which contain stone as noted in CT scan. He is currently doing quite well, LFTs improving. - Advanced to low fat diet. - DC'd IVF since tolerating PO intake well - Monitor LFTs, AM labs pending. - DC'd Relistor; may continue Senna and Colace PRN basis for constipation - Added Ranitidine 150mg qAM for heartburn symptoms. - F/U ERCP in 4 week's time for biliary stent removal - If continues to do well and tolerating diet, no contraindication to DC home today. Supervising Physician Co-Signing Physician Notes I have personally seen and examined the patient with MARY Moffett. Her note reflects my exam and findings. I agree with her impression and plan. Doing great. Eating without issue. Can be discharged from GI perspective with out patient follow up with Dr. Hurt. Julien Chowdhury M.D. Subjective Pt passing flatus and had BM this AM. Is c/o heartburn last night and this AM. Used to take Ranitidine but DC'd it previously as GERD symptoms were in control. Is tolerating CL diet w/o n/v. + mild mid abd pain. Physical Exam Vital Signs (Past 24 Hours): Last Vital Signs Temp 36.7 C 06/16/18 08:02 Pulse 78 06/16/18 08:02 Resp 18 06/16/18 08:02 BP 132/90 06/16/18 08:02 Pulse Ox 98 06/16/18 08:02 Constitutional: WD/WN, vitals as above well groomed, cooperative and comfortable Eyes: PERRL, conjunctivae normal, anicteric sclerae ENMT: external ear and nose normal, oropharynx normal Respiratory: normal respiratory effort, lungs clear to auscultation Cardiovascular: RRR, no murmur, no edema Gastrointestinal (Abdomen): Inspection/Auscultation: normal bowel sounds Percussion/Palpation: + abdomen tender (periumbilical area) and abdomen soft Skin: no rashes, warm and dry no jaundice Neurologic: Motor/Sensory: no asterixis Psychiatric: A+Ox3, euthymic affect Lymphatic: no lymphedema Results & Data Laboratory Results Laboratory Results - last 48 hr 06/15/18 07:28 Sodium 136 Potassium 3.7 Chloride 101 Carbon Dioxide 27 Anion Gap 8.0 BUN 16 Creatinine 0.60 Est Cr Clr Drug Dosing 168.6 Est GFR ( Amer) 127.6 Est GFR (Non-Af Amer) 110.1 BUN/Creatinine Ratio 27.6 H Glucose 101 H Calcium 8.3 L Total Bilirubin 0.8 AST 20 ALT 169 H Alkaline Phosphatase 133 H Total Protein 6.5 Albumin 2.7 L Globulin 3.8 Albumin/Globulin Ratio 0.7 L
[2018-06-16 09:26] LABS: Albumin Level 2.7 gm/dl (3.4-5.0); BUN Creatinine Ratio 18.5 (10-20); Calcium 8.6 mg/dl (8.5-10.1); Creatinine Clr Calc Pharmacy 163.2 ml/min; Est GFR (African American) 125.8; Est GFR (Non-African American) 108.6; Potassium 3.7 mmol/L (3.5-5.1)
[2018-06-16 09:29] LABS: Albumin Globulin Ratio 0.7 (0.9-2); Bilirubin,Total 0.7 mg/dl (0.2-1); Globulin 3.7 gm/dl (2.5-4.0); Total Protein 6.4 gm/dl (6.4-8.2)
[2018-06-16] MEDS: SODIUM CHLORIDE 0.9% 1000ML 1,000 ML IV SCH (10:59)
--- NOTE | 2018-06-16 14:01 | Hospitalist Progress Note ---
Date of Service June 16, 2018 Assessment & Plan (1) Choledocholithiasis: Choledocholithiasis, s/p 06/10/18 ERCP with sphincterotomy and removal of a 16 mm gallstone from the common bile duct and common bile duct stent was placed, Transaminitis, Abdominal pain, acute pancreatititis admission CT ABD/PELVIS: 1. The gallbladder surgically absent. There are numerous gallstones within a cystic duct remnant. 2. There is choledocholithiasis with a 16 mm calcified gallstone in the distal common duct at the ampulla. MRCP is unlikely to provide further information and ERCP is recommended. 3. There is mild intrahepatic biliary ductal dilatation, which has increased from the 2011 examination. 4. Mild colonic diverticulosis without CT evidence of acute diverticulitis. 06/10/18: ERCP with sphincterotomy and removal of a 16 mm gallstone from the common bile duct and common bile duct stent was placed was on ciprofloxacin and flagyl which were started on 06/09/18 and antibiotics stopped on 06/16/18 as patient completed Abdominal Pain: patient had multiple days of abdominal pain despite ERCP and common bile duct stent and found to have pancreatititis CT abdomen and pelvis with IV contrast ordered for 06/13/18 and was remarkable for Pancreatitis and several gallstones remain present within the cystic duct remnant 1. Pancreatitis of the pancreatic head and uncinate process. 2. Localized infiltrative change of the peripancreatic region as well as mesentery. 3. No evidence for abscess, collection or pseudocyst formation at this time. 4. Moderate reactive wall edema of the duodenal sweep. 5. Interval placement of a common bile duct stent in good position. 6. Several gallstones remain present within the cystic duct remnant. -Constipation has resolved, abdominal pain resolved Patient is discharged to home -06/18/2018 1:00 PM Provider Frank Hassan MD Department Internal Med [facility] -follow up with ERCP around 4 week's time for biliary stent removal at Gastroenterology, [facility] (Scheduled date has not been made yet but Gastroenterology service is arranging this) -[place] PDMP was checked and patient last had prescription TRAMADOL HCL 50 MG TABLET filled on 05/20/2018 for 30 day supply -Patient given new prescription of oxycodone 5 mg every 6 hours as needed for severe pain (16 tablets) on discharge if severe pain recurs (2) Elevated liver enzymes: Transaminitis secondary to choledocholithiasis transaminitis have downtrended after the ERCP and stone extraction with stent placement (3) HTN (hypertension): discharge on lisinopril 20 mg daily (4) Dyslipidemia: can resume statin as outpatient (5) Hypothyroidism: -continue levothyroxine (6) Insomnia: -continue trazadone prn insomnia (7) Osteoarthritis: -on NSAIDs -continue venlafaxine DVT Prophylaxis -SCDs Full Code Status phone number [phone] Discharge diagnosis Choledocholithiasis, s/p 06/10/18 ERCP with sphincterotomy and removal of a 16 mm gallstone from the common bile duct and common bile duct stent was placed, Transaminitis, Abdominal pain, acute pancreatititis, Hypertension, hypothyroidism Subjective Patient's abdominal pain has generally resolved. No vomiting. denies shortness of breath or chest discomfort. Patient have been able to make bowel movements Physical Exam Vital Signs (Past 24 Hours): Last Vital Signs Temp 36.7 C 06/16/18 13:56 Pulse 86 06/16/18 13:56 Resp 18 06/16/18 13:56 BP 149/69 H 06/16/18 13:56 Pulse Ox 98 06/16/18 13:56 Constitutional: WD/WN, vitals as above Eyes: PERRL, conjunctivae normal, anicteric sclerae EOM intact bilaterally ENMT: external ear and nose normal, oropharynx normal Neck: trachea midline, no thyromegaly Respiratory: normal respiratory effort, lungs clear to auscultation Cardiovascular: RRR, no murmur, no edema Gastrointestinal (Abdomen): normal bowel sounds, soft, nontender, no hepatosplenomegaly Musculoskeletal: no cyanosis or clubbing, extremities motor strength 5/5 Head/Neck/Chest: normocephalic and head atraumatic Neurologic: PERRL, EOMI, accommodation nl, no face palsy, no dysarthria CN's II-XI intact bilaterally Psychiatric: A+Ox3, euthymic affect
--- NOTE | 2018-06-16 14:08 | Discharge Summary ---
Date of Service June 16, 2018 Admission HPI Per Admitting Provider Pt is 57 y/o M with PMH dyslipidemia, HTN, hypothryoidism, GERD, IBS, OA presented to ER with c/o abdominal pain x 1 day. Pt states 3 days ago had some R flank pain that lasted approx 1 hour and resolved. This morning started with RUQ dull pain that was severe. He took 2 Tylenol and 2 Tramadol with some relief of pain. This evening pain increased again. Denies N/V/D. Last BM yesterday. Hx cholecystectomy in 1997. Denies fever/chills, diaphoresis, KAY, dizziness, syncope, vision changes, neck pain, CP, SOB, orthopnea, palpitations, cough, sore throat, choking, otalgia, rhinorrhea, paresthesias, weakness, extremity weakness, extremity edema, rashes, urinary symptoms. Admission Exam Per Admitting Provider General: no acute distress, overweight Head: normocephalic, atraumatic Eyes: PERRL, EOM's intact, conjunctiva non-injected, anicteric ENT: normal inspection external ears, nose, mucous membranes moist Neck: supple, trachea midline Lungs: clear, no respiratory distress, no wheezing/rhonchi/rales CV: RRR, no murmur, no pretibial edema Abd: normal BS, soft, + tender RUQ and mild to epigastric Ext: no cyanosis, no calf tenderness Neuro: A&O x 3, no focal deficits noted, normal affect Skin: warm, dry Principal Diagnosis Choledocholithiasis, s/p 06/10/18 ERCP with sphincterotomy and removal of a 16 mm gallstone from the common bile duct and common bile duct stent was placed, Transaminitis, Abdominal pain, acute pancreatititis, Hypertension, hypothyroidism Discharge Exam Constitutional WD/WN, vitals as above Eyes PERRL, conjunctivae normal, anicteric sclerae EOM intact bilaterally ENMT external ear and nose normal, oropharynx normal Neck trachea midline, no thyromegaly normal visual inspection and trachea midline Respiratory normal respiratory effort, lungs clear to auscultation Cardiovascular RRR, no murmur, no edema Rate/Rhythm: regular rate and regular rhythm Gastrointestinal (Abdomen) normal bowel sounds, soft, nontender, no hepatosplenomegaly Musculoskeletal no cyanosis or clubbing, extremities motor strength 5/5 Head/Neck/Chest: normocephalic and head atraumatic Neurologic PERRL, EOMI, accommodation nl, no face palsy, no dysarthria CN's II-XI intact bilaterally Psychiatric A+Ox3, euthymic affect Discharge Data Allergies Allergy/AdvReac Type Severity Reaction Status Date / Time No Known Allergies Allergy Verified 06/09/18 17:06 Consultations 06/09/18 18:14 ED Decision to Admit Stat 06/09/18 20:23 Consult Gastroenterology Routine Procedures Performed Operation Date: 06/10/18 08:15 Actual Procedures p Endoscopic Retrograde Cholangiopancreatography(Not Applicable) - Ean Hurt MD Ordered Studies 06/09/18 17:26 CT abd pelvis wo con Stat 06/10/18 12:00 FL ERCP biliary ductal Routine 06/13/18 14:15 CT abd pelvis oral and IV con Urgent Hospital Course (1) Choledocholithiasis: Choledocholithiasis, s/p 06/10/18 ERCP with sphincterotomy and removal of a 16 mm gallstone from the common bile duct and common bile duct stent was placed, Transaminitis, Abdominal pain, acute pancreatititis admission CT ABD/PELVIS: 1. The gallbladder surgically absent. There are numerous gallstones within a cystic duct remnant. 2. There is choledocholithiasis with a 16 mm calcified gallstone in the distal common duct at the ampulla. MRCP is unlikely to provide further information and ERCP is recommended. 3. There is mild intrahepatic biliary ductal dilatation, which has increased from the 2011 examination. 4. Mild colonic diverticulosis without CT evidence of acute diverticulitis. 06/10/18: ERCP with sphincterotomy and removal of a 16 mm gallstone from the common bile duct and common bile duct stent was placed was on ciprofloxacin and flagyl which were started on 06/09/18 and antibiotics stopped on 06/16/18 as patient completed Abdominal Pain: patient had multiple days of abdominal pain despite ERCP and common bile duct stent and found to have pancreatititis CT abdomen and pelvis with IV contrast ordered for 06/13/18 and was remarkable for Pancreatitis and several gallstones remain present within the cystic duct remnant 1. Pancreatitis of the pancreatic head and uncinate process. 2. Localized infiltrative change of the peripancreatic region as well as mesentery. 3. No evidence for abscess, collection or pseudocyst formation at this time. 4. Moderate reactive wall edema of the duodenal sweep. 5. Interval placement of a common bile duct stent in good position. 6. Several gallstones remain present within the cystic duct remnant. -Constipation has resolved, abdominal pain resolved Patient is discharged to home -06/18/2018 1:00 PM Provider Frank Hassan MD Department Internal Medicine [facility] -follow up with ERCP around 4 week's time for biliary stent removal at Gastroenterology, [facility] (Scheduled date has not been made yet but Gastroenterology service is arranging this) -[place] PDMP was checked and patient last had prescription TRAMADOL HCL 50 MG TABLET filled on 05/20/2018 for 30 day supply -Patient given new prescription of oxycodone 5 mg every 6 hours as needed for severe pain (16 tablets) on discharge if severe pain recurs (2) Elevated liver enzymes: Transaminitis secondary to choledocholithiasis transaminitis have downtrended after the ERCP and stone extraction with stent placement (3) HTN (hypertension): discharge on lisinopril 20 mg daily (4) Dyslipidemia: can resume statin as outpatient (5) Hypothyroidism: -continue levothyroxine (6) Insomnia: -continue trazadone prn insomnia (7) Osteoarthritis: -on NSAIDs -continue venlafaxine DVT Prophylaxis -SCDs Full Code Status phone number [phone] Discharge diagnosis Choledocholithiasis, s/p 06/10/18 ERCP with sphincterotomy and removal of a 16 mm gallstone from the common bile duct and common bile duct stent was placed, Transaminitis, Abdominal pain, acute pancreatititis, Hypertension, hypothyroidism Total Time Total Time Spent Total Time Spent (In Minutes): 40 minutes Total Time Includes: Examination of the Patient, Discharge Planning and Medication Reconciliation Discharge Plan Discharge Items Patient Disposition: Home - Self-Care Reason For Visit: CHOLEDOCHOLITHIASIS Discharge Diagnosis: Choledocholithiasis, s/p 06/10/18 ERCP with sphincterotomy and removal of a 16 mm gallstone from the common bile duct and common bile duct stent was placed, Transaminitis, Abdominal pain, acute pancreatititis, Hypertension, hypothyroidism Condition: Good Discharge Goals: Improve disease control Activity: Resume your previous activity Non-emergency contact: Primary Care Provider Call non-emergency contact if: you have any medication questions Follow-up/Referrals: Frank Hassan MD [Primary Care Provider] - Diet: Low Fat Addtl Provider Instructions: Patient is discharged to home 06/18/2018 1:00 PM Provider Frank Hassan MD Department Internal Medicine [facility] follow up with ERCP around 4 week's time for biliary stent removal at Gastroenterology, [facility] (Scheduled date has not been made yet but Gastroenterology service is arranging this) [place] PDMP was checked and patient last had prescription TRAMADOL HCL 50 MG TABLET filled on 05/20/2018 for 30 day supply Patient given new prescription of oxycodone 5 mg every 6 hours as needed for severe pain (16 tablets) on discharge if severe pain recurs Prescriptions: New lisinopril 20 mg Tablet 20 mg PO QAM 30 Days Qty: 30 RF: 0 ranitidine HCl 150 mg Tablet 150 mg PO QAM 30 Days Qty: 30 RF: 0 oxycodone 5 mg Tablet 5 mg PO Q6H PRN (Reason: severe pain) 4 Days Qty: 16 RF: 0 Continued celecoxib 200 mg capsule 200 mg PO DAILY RF: 0 venlafaxine 37.5 mg capsule,extended release 24hr 37.5 mg PO DAILY RF: 0 tramadol 50 mg tablet 100 mg PO BID PRN (Reason: Pain) RF: 0 trazodone 100 mg tablet 100 mg PO HS PRN (Reason: Insomnia) RF: 0 simvastatin 20 mg tablet 20 mg PO HS RF: 0 levothyroxine 200 mcg tablet 200 mcg PO DAILY RF: 0 cholecalciferol (vitamin D3) [Vitamin D3] 1,000 unit Capsule 1,000 units PO DAILY RF: 0 omega 2-qbc-gii-fish oil [Fish Oil] 1,000 mg (120 mg-180 mg) Capsule 1,000 mg PO DAILY RF: 0 Discontinued lisinopril 10 mg tablet 10 mg PO DAILY RF: 0 Stand-Alone Forms: Call Back Authorization, [facility], Opioid Pain Management Discharge Orders: Discharge Order (Routine); Ordered 06/16/18 Ordered By: Jagjit Mcdonald Admission Data Admit Date/Time: 06/09/18 19:42 Attending Provider: Jagjit Mcdonald Admit Provider: Jackson Miranda Primary Care Provider: Frank Hassan Other Providers: Jackson Miranda ; Ean Hurt Service: Medical Other Interventions: Discharge Summary Assessment (RN) Last Done: 06/16/18 13:56
[2018-07-02] MEDS ORDERED: fentaNYL citrate 100 MCG/2 ML VIAL IV PRN (13:51)
[2018-07-02] MEDS ORDERED: ATROPINE SULFATE 0.1 MG/ML 10ML SYR IV PRN (13:51)
[2018-07-02] MEDS ORDERED: ePHEDrine sulfate 50 MG/ML AMP IV PRN (13:51)
== END 2018-06-16 14:41 | disposition home or self-care (01) | DRG 444 ==
LOC: ED 16:13 → 3N 19:42
DX: E11.9 Type 2 diabetes mellitus without complications; E78.5 Hyperlipidemia, unspecified; E03.9 Hypothyroidism, unspecified; K80.50 Calculus of bile duct without cholangitis or cholecystitis without obstruction; R74.0 Nonspecific elevation of levels of transaminase and lactic acid dehydrogenase [LDH]; G47.00 Insomnia, unspecified; Z90.49 Acquired absence of other specified parts of digestive tract; K91.5 Postcholecystectomy syndrome; K58.9 Irritable bowel syndrome, unspecified; K85.10 Biliary acute pancreatitis without necrosis or infection; Z80.0 Family history of malignant neoplasm of digestive organs; M06.9 Rheumatoid arthritis, unspecified; M19.90 Unspecified osteoarthritis, unspecified site; I10 Essential (primary) hypertension

== ENCOUNTER 2018-07-01 18:02 | Observation (INO) ==
[2018-07-01] MEDS ORDERED: metroNIDAZOLE 500 MG/100 ML BAG IV STA (18:31)
[2018-07-01] MEDS ORDERED: cefTRIAXone SODIUM 1,000 MG/50 ML BAG IV STA (18:31)
--- NOTE | 2018-07-01 18:53 | XRay Report ---
KUB CLINICAL HISTORY: stent placement COMPARISON STUDY: CT of the abdomen and pelvis June 13, 2018. FINDINGS: A common bile duct stent is similar in position to CT of June 13, 2018. There are cholecys tectomy clips. The bowel gas pattern is normal. No urinary calculi are identified. IMPRESSION: 1. Appropriately positioned common bile duct stent. 2. No evidence for a bowel obstruction. Electronically signed by: Krzysztof Betancourt M.D. 07/01/2018 6:50 PM
[2018-07-01 19:11] LABS: Basophils # (auto) 0.01 K/uL (0-0.2); Basophils % (auto) 0.2 %; Eosinophils % (auto) 1.7 %; Hematocrit (blood only) 36.2 % (42-52); Hemoglobin 12.3 g/dL (14.0-18.0); Immature Granulocytes # (auto) 0.01 K/uL (0.00-0.02); Immature Granulocytes % (auto) 0.2 %; Lymphocytes # (auto) 1.48 K/uL (1.2-3.4); Lymphocytes % (auto) 25.5 %; Mean Corpuscular Volume 90.5 fL (80-100); Monocytes % (auto) 6.9 %; Neutrophils # (auto) 3.81 K/uL (1.4-6.5); Neutrophils % (auto) 65.5 %; Platelet Count 307 K/uL (130-400); RDW Standard Deviation 42.7 fL (36.4-46.3); White Blood Count 5.81 K/uL (4.8-10.8)
[2018-07-01 19:22] LABS: Partial Thromboplastin Ratio 0.9; Partial Thromboplastin Time 24.4 Seconds (21.0-31.0); Prothrombin Time 10.4 Seconds (9.0-12.0)
[2018-07-01] MEDS ORDERED: KETOROLAC TROMETHAMINE 15 MG/ML VIAL IV ONE (19:26)
[2018-07-01 19:34] LABS: Albumin Level 3.7 gm/dl (3.4-5.0); BUN Creatinine Ratio 21.7 (10-20); Calcium 8.4 mg/dl (8.5-10.1); Est GFR (African American) 110.5; Est GFR (Non-African American) 95.4; Potassium 3.6 mmol/L (3.5-5.1)
[2018-07-01 19:37] LABS: Albumin Globulin Ratio 1.1 (0.9-2); Bilirubin,Total 0.5 mg/dl (0.2-1); Globulin 3.4 gm/dl (2.5-4.0); Total Protein 7.1 gm/dl (6.4-8.2)
[2018-07-01] MEDS ORDERED: MoRPHine SULFATE 10 MG/ML CARP/VIAL IV STA (21:05)
[2018-07-01] MEDS ORDERED: MoRPHine SULFATE 4 MG/ML 1 ML CARP\\VIAL ONE ×2 (21:06→21:07)
--- NOTE | 2018-07-01 21:14 | History & Physical Report ---
Date of Service July 01, 2018 Assessment & Plan (1) Abdominal pain: On 06/10/18 patient underwent ERCP with sphincterotomy and biliary stent placement and 16 mm stent removal Treated with appropriate IV antibiotics during admission Discharged 06/16/18 Doing well post operatively until 3 days ago Now representing with abdominal pain He was planned to undergo stent removal 07/05/18 He reports elevated temp at 99.9 but is afebrile in ED CBC and CMP are relatively unremarkable without leukocytosis or transaminitis Lactate 1.0 KUB shows proper placement of CBD stent no further acute process Given patient's abdominal discomfort and now acute onset of right-sided flank pain will order CT scan of abdomen pelvis to rule out nephrolithiasis -Admit patient to med/surg -Consult gastroenterology, plan for ERCP in a.m. for biliary stent removal -Continue IV antibiotics from ED Rocephin and Flagyl, but feel infection less likely -Repeat CBC, CMP in a.m. -Ketorolac 15 mg IV every 6 hours as needed moderate pain, IV morphine 2 mg every 4 hours as needed severe pain -N.p.o. after midnight -Check urinalysis with culture given flank pain (2) Back pain: -plan as above (3) HTN (hypertension): -Blood pressure elevated likely secondary to pain -Patient recently switched from lisinopril to valsartan -Patient also taking daily NSAID which may also heighten BP -Monitor (4) Dyslipidemia: -Continue statin (5) Osteoarthritis: -Hold Celebrex for now -IV ketorolac for moderate pain, IV morphine for severe pain (6) Hypothyroidism: -continue levothyroxine (7) GERD (gastroesophageal reflux disease): -Continue ranitidine (8) Insomnia: -continue trazadone prn insomnia (9) DVT prophylaxis: -SCDS/Teds for now given upcoming procedure in a.m. Disposition: D/C to home when able Follow up: PCP Dr. Hassan upon discharge Patient was seen and examined in collaboration with Dr. Lang, please see addendum Starting 07/02/18 patient will be under the care of Dr. Ortiz History of Present Illness Chief Complaint: Abdominal pain x 3 days. Primary Care Provider: Frank Hassan This is a 57-year-old white male who has a significant PMH of dyslipidemia, HTN, hypothryoidism, GERD, IBS, OA presented to ER with c/o abdominal pain x 3 day. Of significance patient recently hospitalized at [facility] secondary to choledocholithiasis. On 06/10/18 he underwent ERCP with sphincterotomy and biliary stent placement and 16 mm stone removal. He was treated with appropriate course of antibiotics. Initial transaminitis trended down post procedure. He was doing well postoperatively until approximately 3 days ago. He began developing intermittent abdominal discomfort specifically right-sided. Pain became more frequent and more persistent. Feels similar to when he initially presented with choledocholithiasis. Nothing improved symptoms and nothing made it worse. He did have elevated temperature yesterday at 99.9 Fahrenheit. He also elicits to having sweats but no chills. He denies dizziness, lightheadedness, chest pain, shortness of breath, palpitations, cough, hemoptysis, nausea, vomiting, diarrhea, dysuria, hematuria, increased urgency or frequency with urination. He has been having regular stool although he did state yesterday his stools were more leora colored. He states he called in to speak with GI this evening. Given symptoms and patient to undergo stent removal on 07/05 it was recommended patient seek ED tonight and be admitted for biliary stent removal tomorrow. It was felt that stent may be the cause of patient's discomfort. Upon exiting room patient elicit he was having right-sided back discomfort. He states symptoms just started and felt may be related to positioning in bed. He states it is right sided below scapula, nonradiating, 10/13, nothing improved symptoms and nothing worsened symptoms. Never experienced symptoms in the past. "I can't get comfortable." Allergies Allergy/AdvReac Type Severity Reaction Status Date / Time No Known Allergies Allergy Verified 07/01/18 19:34 Home Medications Home Medications Medication Instructions Recorded Confirmed Type celecoxib 200 mg PO QAM 05/05/18 07/01/18 History cholecalciferol (vitamin D3) 1,000 units PO QAM 05/05/18 07/01/18 History [Vitamin D3] levothyroxine 200 mcg PO QAM 05/05/18 07/01/18 History simvastatin 20 mg PO HS 05/05/18 07/01/18 History tramadol 100 mg PO BID 05/05/18 07/01/18 History trazodone 100 mg PO HS 05/05/18 07/01/18 History venlafaxine 37.5 mg PO HS 05/05/18 07/01/18 History acetaminophen [Tylenol Arthritis 1,300 mg PO BID 07/01/18 07/01/18 History Pain] [id number] 1 cap PO QAM 07/01/18 07/01/18 History [krill oil] ranitidine HCl 150 mg PO HS 07/01/18 07/01/18 History valsartan 40 mg PO DAILY 07/01/18 07/01/18 History Past Med/Surg History Medical History Insomnia (Chronic) HTN (hypertension) (Chronic) Dyslipidemia (Chronic) Osteoarthritis (Chronic) Irritable bowel syndrome (Chronic 12/09/12) Hypothyroidism (Chronic 12/09/12) GERD (gastroesophageal reflux disease) (Chronic 12/09/12) Surgical History History of tonsillectomy (Chronic) History of orthopedic surgery (Chronic) Shoulder arthroscopy, knee arthroscopy History of cholecystectomy (Chronic 12/09/12) Family History Other Colon cancer Hypertension Social History Preferred Language: Portuguese Communication Ability: Effective 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 Beliefs That Will Affect Care: None marital status: Current Living Situation: Spouse Other Information That Helps Us Care for You: No Feels Safe at Home: Yes Safety Concerns: Feels Safe At This Time Smoking Status: Never smoker Hx Alcohol Use: Yes Hx Substance Use: No Review of Systems All systems reviewed & are unremarkable except as noted in HPI & below Physical Exam Vital Signs (Past 24 Hours): Last Vital Signs Temp 36.8 C 07/01/18 18:23 Pulse 77 07/01/18 21:00 Resp 21 07/01/18 21:00 BP 140/88 07/01/18 21:00 Pulse Ox 96 07/01/18 21:00 Physical Exam: Gen: WD/WN, M, NAD, sitting up in bed, pleasant, conversing easily Head: Normocephalic, Atraumatic Eyes: Sclera normal, no conjunctival injection, PERRLA, EOMI ENT: Gross hearing intact, normal pharynx, mucous membranes moist Neck: supple, no adenopathy, No JVD, no bruit, Resp: Clear to auscultation b/l, no wheeze, rales, rhonchi. Normal insp/exp effort, no accessory muscle use CV: Regular rate, regular rhythm, no murmur, rub, gallop, or ectopy Abd: +BS x 4, protuberant, soft,+tender to palpation RUQ/epigastrum, nondistended, no rebound, no guarding, no rigidity, no CVA tenderness Musculoskeletal: moves extremities active rom x 4, strength intact, good senior chemical process engineer strength, pain to palpation around right thoracic paraspinal musculature, pt states, "pain isn't similar to pain I'm feeling." Extremities: No edema bilaterally Skin: warm, moist, no rash, negative turgor, cap refill < 2sec Neuro: Alert and oriented x 3, speech normal, good mood/affect, cran nerve 2-12 intact grossly : deferred Results & Data Laboratory Results Short CBC 07/01/18 Range/Units 19:00 WBC 5.81 (4.8-10.8) K/uL Hgb 12.3 L (14.0-18.0) g/dL Hct 36.2 L (42-52) % Plt Count 307 (130-400) K/uL BMP 07/01/18 19:00 Sodium 139 Potassium 3.6 Chloride 107 Carbon Dioxide 28 BUN 18 Creatinine 0.85 Glucose 100 H Calcium 8.4 L Liver Function 07/01/18 Range/Units 19:00 Total Bilirubin 0.5 (0.2-1) mg/dl AST 22 (15-37) U/L ALT 39 (12-78) U/L Alkaline Phosphatase 80 (45-117) U/L Albumin 3.7 (3.4-5.0) gm/dl Code Status & VTE Plan Code Status Full Code VTE Prophylaxis Plan VTE Prophylaxis will be ordered: Yes Supervising Physician Co-Signing Physician Notes I saw this patient with the physician desk assistant, I participated in the history, physical, review of systems, and physical exam. I reviewed the medications with the patient and the physician desk assistant and helped reconcile the medications. I helped take a detailed family and social history as well. I formulated the assessment and plan personally with the physician desk assistant and went over it with the patient. ROS-No Headache, No Visual Changes, No Nausea, No Vomiting, No Fever, No Chills, No Neck Pain or Stiffness, No Chest Pain, No Palpitations, No SOB, No ROMERO, No Cough, No Sputum, No Wheezing, positive abdominal Pain radiating into his right back, No Diarrhea, No Hematemesis, No Hemoptysis, No Unexpected Weight Loss, No Flank pain, No Melena, No Hematochezia, No Frequency, No Urgency, No Burning, No Hematuria, No Rashes, No Diaphoresis. Appetite is Normal Physical Exam Gen-AAO x 3, NAD, Afebrile Head-NCAT, EOMI, PERRLA, Anicteric Sclera, No Posterior Pharyngeal Erythema Neck-Supple, No JVD, No Thyromegaly, No Masses, No LAD, No Bruits Lungs-Clear to Auscultation Bilaterally, No Rales, No Rhonchi, No Wheezing, No Crepitus Chest-No S4, +S1, +S2, No S3, No Murmurs, No Rubs, No Gallops, No Ectopy Abdomen-Soft, Bowel Sounds Present, Non Tender, Non Distended, No Hepatomegaly, No Splenomegaly, No Palpable Masses, No Rebound, No Rigidity, No Guarding Musculoskeletal-Full Range of Motion Bilaterally, No CVAT Extremities-No Cyanosis, No Clubbing, No Edema Nuero-Cranial Nerves II-XII grossly intact, Motor WNL, DTRs WNL, Strength WNL, Non Focal Psych-Normal Mood (1) Hypothyroidism Hypothyroidism type: unspecified Qualified Code(s): E03.9 - Hypothyroidism, unspecified (2) HTN (hypertension) Hypertension type: essential hypertension Qualified Code(s): I10 - Essential (primary) hypertension
--- NOTE | 2018-07-01 22:15 | Emergency Department Note ---
Entered by Levi Patricio acting as a scribe for Aston Duffy DO History of Present Illness General Chief complaint: Abdominal Pain Stated complaint: STOMACH PAIN Source: patient History of Present Illness Onset (ago): day(s) 3 Location: right (flank and abdomen) Pain Consistency: + intermittent Quality: + stabbing Associated symptoms: + other (max temp 99.9; urine dark but denies pain with urination; recent common bile duct stone with ERCP) The patient is a 57 year old male who presents to the Emergency Room with complaints of intermittent right-sided flank and abdominal pain beginning in the past three days. The patient reports that he was recently admitted to the hospital with a common bile duct stone, and he had ERCP performed. He states that the first week after departure he was feeling well, the following few days he felt funny, and then three days ago he developed pain in the right abdomen and flank, the same location as the pain associated with his recent stone. He states that his pain is now stabbing and different from his initial pain. He states that his urine is dark but denies burning with urination. He notes a max temperature of 99.9 but denies fevers above 100.4. He reports a history of cholecystectomy several years ago, and he still has his appendix. He states that he does not smoke. Home Medications Home Medications Medication Instructions Recorded Confirmed Type celecoxib 200 mg PO QAM 05/05/18 07/01/18 History cholecalciferol (vitamin D3) 1,000 units PO QAM 05/05/18 07/01/18 History [Vitamin D3] levothyroxine 200 mcg PO QAM 05/05/18 07/01/18 History simvastatin 20 mg PO HS 05/05/18 07/01/18 History tramadol 100 mg PO BID 05/05/18 07/01/18 History trazodone 100 mg PO HS 05/05/18 07/01/18 History venlafaxine 37.5 mg PO HS 05/05/18 07/01/18 History acetaminophen [Tylenol Arthritis 1,300 mg PO BID 07/01/18 07/01/18 History Pain] [id number] 1 cap PO QAM 07/01/18 07/01/18 History [krill oil] ranitidine HCl 150 mg PO HS 07/01/18 07/01/18 History valsartan 40 mg PO DAILY 07/01/18 07/01/18 History Allergies Allergy/AdvReac Type Severity Reaction Status Date / Time No Known Allergies Allergy Verified 07/01/18 19:34 Past Med/Surg History Medical History Insomnia (Chronic) HTN (hypertension) (Chronic) Dyslipidemia (Chronic) Osteoarthritis (Chronic) Irritable bowel syndrome (Chronic 12/09/12) Hypothyroidism (Chronic 12/09/12) GERD (gastroesophageal reflux disease) (Chronic 12/09/12) Surgical History History of tonsillectomy (Chronic) History of orthopedic surgery (Chronic) Shoulder arthroscopy, knee arthroscopy History of cholecystectomy (Chronic 12/09/12) Family History Other Colon cancer Hypertension Social History Preferred Language: Armenian Communication Ability: Effective Manager Banquet Required: No Beliefs That Will Affect Care: None marital status: Current Living Situation: Spouse Other Information That Helps Us Care for You: No Feels Safe at Home: Yes Safety Concerns: Feels Safe At This Time Smoking Status: Never smoker Hx Alcohol Use: Yes Hx Substance Use: No Review of Systems See HPI for pertinent positives & negatives. and A total of 10 systems reviewed and were otherwise negative Physical Exam Vital Signs Vital Signs - 24 hr 07/01/18 18:10 07/01/18 18:23 07/01/18 19:13 Temperature 36.8 C Temperature Source Oral Sepsis Recent Fever Within 48 Hours No Sepsis New/Unexplained Change in Mental Status No Sepsis Action Taken by Nursing No Action Required Pulse Rate 78 76 76 Pulse Rate [Apical] Pulse Rate from SpO2 Sensor 76 Pulse Rhythm Regular Pulse Strength Normal Respiratory Rate 20 14 Respiratory Effort / Characteristics Non-Labored Spontaneous Respiratory Depth Normal Respiratory Pattern Regular Blood Pressure 142/89 H 143/89 H Blood Pressure [Right Arm] Blood Pressure Mean 106 107 Blood Pressure Mean [Right Arm] Blood Pressure Position Sitting Blood Pressure Position [Right Arm] Pulse Oximetry 98 97 95 Oxygen Delivery Method Room Air Room Air 07/01/18 19:39 07/01/18 19:45 07/01/18 20:00 Temperature Temperature Source Sepsis Recent Fever Within 48 Hours Sepsis New/Unexplained Change in Mental Status Sepsis Action Taken by Nursing Pulse Rate 75 76 79 Pulse Rate [Apical] Pulse Rate from SpO2 Sensor 75 75 80 Pulse Rhythm Pulse Strength Respiratory Rate 16 16 15 Respiratory Effort / Characteristics Respiratory Depth Respiratory Pattern Blood Pressure Blood Pressure [Right Arm] Blood Pressure Mean Blood Pressure Mean [Right Arm] Blood Pressure Position Blood Pressure Position [Right Arm] Pulse Oximetry 94 96 98 Oxygen Delivery Method 07/01/18 20:02 07/01/18 20:15 07/01/18 20:16 Temperature Temperature Source Sepsis Recent Fever Within 48 Hours Sepsis New/Unexplained Change in Mental Status Sepsis Action Taken by Nursing Pulse Rate 76 Pulse Rate [Apical] 78 88 Pulse Rate from SpO2 Sensor 76 Pulse Rhythm Pulse Strength Respiratory Rate 20 20 Respiratory Effort / Characteristics Respiratory Depth Respiratory Pattern Regular Blood Pressure Blood Pressure [Right Arm] 160/88 H 148/80 H Blood Pressure Mean Blood Pressure Mean [Right Arm] 112 102 Blood Pressure Position Blood Pressure Position [Right Arm] Sitting Sitting Pulse Oximetry 96 Oxygen Delivery Method Room Air 07/01/18 20:30 07/01/18 20:45 07/01/18 21:00 Temperature Temperature Source Sepsis Recent Fever Within 48 Hours Sepsis New/Unexplained Change in Mental Status Sepsis Action Taken by Nursing Pulse Rate 72 69 77 Pulse Rate [Apical] Pulse Rate from SpO2 Sensor 72 71 78 Pulse Rhythm Pulse Strength Respiratory Rate 16 16 21 Respiratory Effort / Characteristics Respiratory Depth Respiratory Pattern Blood Pressure 140/88 Blood Pressure [Right Arm] Blood Pressure Mean 105 Blood Pressure Mean [Right Arm] Blood Pressure Position Blood Pressure Position [Right Arm] Pulse Oximetry 97 97 96 Oxygen Delivery Method 07/01/18 21:15 Temperature Temperature Source Sepsis Recent Fever Within 48 Hours Sepsis New/Unexplained Change in Mental Status Sepsis Action Taken by Nursing Pulse Rate Pulse Rate [Apical] 73 Pulse Rate from SpO2 Sensor Pulse Rhythm Pulse Strength Respiratory Rate 20 Respiratory Effort / Characteristics Respiratory Depth Respiratory Pattern Blood Pressure Blood Pressure [Right Arm] 160/90 H Blood Pressure Mean Blood Pressure Mean [Right Arm] 113 Blood Pressure Position Blood Pressure Position [Right Arm] Sitting Pulse Oximetry 95 Oxygen Delivery Method GENERAL: Sitting up in bed, alert, well appearing, well nourished, no distress, non-toxic EYE EXAM: normal conjunctiva. OROPHARYNX: no exudate, no erythema, lips, buccal mucosa, and tongue normal and mucous membranes are moist NECK: supple, no nuchal rigidity, no adenopathy, non-tender LUNGS: Clear to auscultation. Normal chest wall mechanics HEART: no murmurs, S1 normal and S2 normal ABDOMEN: abdomen soft, RUQ tenderness to palpation, normo-active bowel, sounds, no masses, no rebound or guarding. BACK: Back is symmetrical on inspection and there is no deformity, no midline tenderness, no CVA tenderness. SKIN: no rashes and no bruising UPPER EXTREMITIES: upper extremities are grossly normal. LOWER EXTREMITIES: No pitting edema. NEURO EXAM: Normal sensorium, cranial nerves II-XII grossly intact, normal speech, no gross weakness of arms, no gross weakness of legs. Gross sensation intact. Course ED COURSE: Vital signs were reviewed and showed hypertension felt to be situational The patients medical record was reviewed The above diagnostic studies were performed and reviewed. ED treatments and interventions as stated above. 1825: The patient was evaluated in room A4A. A complete history and physical examination was performed. 2026: I consulted Dr. Rickey Corcoran Hospitalist. The patient will be reevaluated for hospitalization. Based on the patients age, coexisting illnesses, exam and lab findings the decision to treat as an inpatient was made. The patient remained stable while under my care. The patient will be evaluated for further management. Consultations Consultation #1: I consulted Dr. Rickey Corcoran Hospitalist. The patient will be reevaluated for hospitalization. Time: 20:27 Administered Medications Discontinued Medications Metronidazole (Flagyl) 500 mg in 100 mls @ 100 mls/hr IV NOW STA Stop: 07/01/18 19:30 Last Infusion: 07/01/18 20:33 Dose: 0 mls/hr Documented by: [id number] Admin: 07/01/18 19:22 Dose: 100 mls/hr Documented by: [id number] Ceftriaxone Sodium (Rocephin) 1,000 mg in 50 mls @ 100 mls/hr IV NOW STA Stop: 07/01/18 19:00 Last Infusion: 07/01/18 19:49 Dose: 0 mls/hr Documented by: [id number] Admin: 07/01/18 19:22 Dose: 100 mls/hr Documented by: [id number] Ketorolac Tromethamine (Toradol) 10 mg IV NOW ONE Stop: 07/01/18 19:27 Last Admin: 07/01/18 19:48 Dose: 10 mg Documented by: [id number] Morphine Sulfate (Morphine Sulfate) 8 mg IV NOW STA Stop: 07/01/18 21:06 Last Admin: 07/01/18 21:09 Dose: Not Given Documented by: [id number] Morphine Sulfate (Morphine Sulfate) Confirm Administered Dose 4 mg .ROUTE .STK- MED ONE Stop: 07/01/18 21:07 Last Admin: 07/01/18 21:08 Dose: 4 mg Documented by: [id number] Morphine Sulfate (Morphine Sulfate) Confirm Administered Dose 4 mg .ROUTE .STK- MED ONE Stop: 07/01/18 21:08 Last Admin: 07/01/18 21:08 Dose: 4 mg Documented by: [id number] Medical Decision Making Differential Diagnosis Differential diagnoses includes but is not limited to gastritis, peptic ulcer disease, GERD, gallbladder disease, pancreatitis, small bowel obstruction, acute coronary syndrome, pericarditis, ischemic bowel, irritable bowel disease, irritable bowel syndrome, appendicitis, diverticulitis, malignancy, hernia, urinary tract infection, torsion, perforation, trauma, infectious. Medical Records Attestation: I reviewed the patient's medical records. Home Medications Current Medication List: was personally reviewed by me Laboratory Data Attestation: I reviewed the patient's lab results. Result diagrams: 07/01/18 19:00 07/01/18 19:00 Lab Results 07/01/18 07/01/18 07/01/18 Range/Units 19:00 19:00 19:00 WBC 5.81 (4.8-10.8) K/uL RBC 4.00 L (4.7-6.1) M/uL Hgb 12.3 L (14.0-18.0) g/dL Hct 36.2 L (42-52) % MCV 90.5 (80-100) fL MCH 30.8 (25-34) pg MCHC 34.0 (32-36) g/dL RDW Std Deviation 42.7 (36.4-46.3) fL RDW Coeff of Jean 13.0 (11.5-14.5) % Plt Count 307 (130-400) K/uL MPV 9.0 (7.4-10.4) fL Immature Gran % (Auto) 0.2 % Neut % (Auto) 65.5 % Lymph % (Auto) 25.5 % [place] % (Auto) 6.9 % Eos % (Auto) 1.7 % Baso % (Auto) 0.2 % Immature Gran # (Auto) 0.01 (0.00-0.02) K/uL Neut # (Auto) 3.81 (1.4-6.5) K/uL Lymph # (Auto) 1.48 (1.2-3.4) K/uL [place] # (Auto) 0.40 (0.11-0.59) K/uL Eos # (Auto) 0.10 (0-0.5) K/uL Baso # (Auto) 0.01 (0-0.2) K/uL PT 10.4 (9.0-12.0) Seconds INR 1.0 (0.9-1.1) APTT 24.4 (21.0-31.0) Seconds PTT Ratio 0.9 Sodium 139 (136-145) mmol/L Potassium 3.6 (3.5-5.1) mmol/L Chloride 107 (98-107) mmol/L Carbon Dioxide 28 (21-32) mmol/L Anion Gap 4.0 (3-11) BUN 18 (7-18) mg/dl Creatinine 0.85 (0.6-1.4) mg/dl Est Cr Clr Drug Dosing 114.0 ml/min Est GFR ( Amer) 110.5 Est GFR (Non-Af Amer) 95.4 BUN/Creatinine Ratio 21.7 H (10-20) Glucose 100 H (70-99) mg/dl Lactate (0.4-2.0) mmol/L Calcium 8.4 L (8.5-10.1) mg/dl Total Bilirubin 0.5 (0.2-1) mg/dl AST 22 (15-37) U/L ALT 39 (12-78) U/L Alkaline Phosphatase 80 (45-117) U/L Total Protein 7.1 (6.4-8.2) gm/dl Albumin 3.7 (3.4-5.0) gm/dl Globulin 3.4 (2.5-4.0) gm/dl Albumin/Globulin Ratio 1.1 (0.9-2) 07/01/18 Range/Units 19:00 WBC (4.8-10.8) K/uL RBC (4.7-6.1) M/uL Hgb (14.0-18.0) g/dL Hct (42-52) % MCV (80-100) fL MCH (25-34) pg MCHC (32-36) g/dL RDW Std Deviation (36.4-46.3) fL RDW Coeff of Jean (11.5-14.5) % Plt Count (130-400) K/uL MPV (7.4-10.4) fL Immature Gran % (Auto) % Neut % (Auto) % Lymph % (Auto) % [place] % (Auto) % Eos % (Auto) % Baso % (Auto) % Immature Gran # (Auto) (0.00-0.02) K/uL Neut # (Auto) (1.4-6.5) K/uL Lymph # (Auto) (1.2-3.4) K/uL [place] # (Auto) (0.11-0.59) K/uL Eos # (Auto) (0-0.5) K/uL Baso # (Auto) (0-0.2) K/uL PT (9.0-12.0) Seconds INR (0.9-1.1) APTT (21.0-31.0) Seconds PTT Ratio Sodium (136-145) mmol/L Potassium (3.5-5.1) mmol/L Chloride (98-107) mmol/L Carbon Dioxide (21-32) mmol/L Anion Gap (3-11) BUN (7-18) mg/dl Creatinine (0.6-1.4) mg/dl Est Cr Clr Drug Dosing ml/min Est GFR ( Amer) Est GFR (Non-Af Amer) BUN/Creatinine Ratio (10-20) Glucose (70-99) mg/dl Lactate 1.0 (0.4-2.0) mmol/L Calcium (8.5-10.1) mg/dl Total Bilirubin (0.2-1) mg/dl AST (15-37) U/L ALT (12-78) U/L Alkaline Phosphatase (45-117) U/L Total Protein (6.4-8.2) gm/dl Albumin (3.4-5.0) gm/dl Globulin (2.5-4.0) gm/dl Albumin/Globulin Ratio (0.9-2) Imaging Data Radiologist's Impression: Radiology results as stated below per my review and the radiologist's interpretation: KUB CLINICAL HISTORY: stent placement COMPARISON STUDY: CT of the abdomen and pelvis June 13, 2018. FINDINGS: A common bile duct stent is similar in position to CT of June 13, 2018. There are cholecystectomy clips. The bowel gas pattern is normal. No urinary calculi are identified. IMPRESSION: 1. Appropriately positioned common bile duct stent. 2. No evidence for a bowel obstruction. Electronically signed by: Krzysztof Betancourt M.D. 07/01/2018 6:50 PM Blood Pressure Blood Pressure Findings: Elevated blood pressure Blood Pressure Disposition: further management by hospitalist MDM Narrative Patient is a 57-year-old male with a past medical history of choledocholithiasis with a stent placed in a previous cholecystectomy and pancreatitis who was recently admitted and discharged that presents the ER for right upper quadrant pain referred in by GI. Patient is slightly hypertensive. He is afebrile. Does report fevers 99.9 at home. Labs show no significant leukocytosis or anemia. INR was unremarkable. BMP along with LFTs bilirubin was unremarkable as well. Patient's pain was consistent in the right upper quadrant. Discussed with GI who sent him in to arrival and they do recommended an x-ray for stent placement and they will scope him tomorrow. I did recommend antibiotics. Patient was given IV antibiotics along with IV fluids and IV narcotics. Discussed with the hospitalist patient will be admitted for further workup. Impression & Plan Abdominal pain, Fever Discharge Plan Visit Data Chief Complaint: Abdominal Pain Stated Complaint: STOMACH PAIN ED Provider: Aston Duffy Discharge Problem: Abdominal pain, Fever Patient Disposition: Being Evaluated by Hospitalist Forms Stand Alone Forms: Call Back Authorization, [facility] Prescriptions: No Action acetaminophen [Tylenol Arthritis Pain] 650 mg Tablet Extended Release 1,300 mg PO BID RF: 0 ranitidine HCl 150 mg tablet 150 mg PO HS RF: 0 [id number]-[id number]-ast [krill oil] 1,156-275-33-80 mg Capsule 1 cap PO QAM RF: 0 valsartan 40 mg tablet 40 mg PO DAILY RF: 0 celecoxib 200 mg capsule 200 mg PO QAM RF: 0 venlafaxine 37.5 mg capsule,extended release 24hr 37.5 mg PO HS RF: 0 tramadol 50 mg tablet 100 mg PO BID RF: 0 trazodone 100 mg tablet 100 mg PO HS RF: 0 simvastatin 20 mg tablet 20 mg PO HS RF: 0 levothyroxine 200 mcg tablet 200 mcg PO QAM RF: 0 cholecalciferol (vitamin D3) [Vitamin D3] 1,000 unit Capsule 1,000 units PO QAM RF: 0 Referrals Referrals: Frank Hassan MD [Primary Care Provider] - Discharge Problem: Abdominal pain Qualifiers: Abdominal location: unspecified location Qualified Code(s): R10.9 - Unspecified abdominal pain Fever Qualifiers: Fever type: unspecified Qualified Code(s): R50.9 - Fever, unspecified The scribe's documentation has been prepared under my direction and personally reviewed by me in its entirety. I confirm that the note above accurately reflects all work, treatment, procedures, and medical decision making performed by me.
--- NOTE | 2018-07-01 22:44 | CT Scan Report ---
CT OF THE ABDOMEN AND PELVIS WITHOUT CONTRAST CLINICAL HISTORY: Abdominal pain. Evaluate for kidney stone. COMPARISON STUDY: CT of the abdomen and pelvis June 13, 2018. TECHNIQUE: Axial images of the abdomen and pelvis were obtained without IV contrast. Images were revi ewed in the axial, sagittal, and coronal planes. Automated exposure control was utilized for the val dy. A dose lowering technique was utilized adhering to the principles of ALARA. FINDINGS: Lung bases are clear. No renal, ureteral or bladder calculi are present. There is no hydron ephrosis or Garvin ureter. Evaluation of the abdomen and pelvis is suboptimal on this unenhanced exam. A common bile duct stent appears appropriately positioned. No calcified stones within the common karly e duct are noted. The gallbladder surgically absent. Pneumobilia is noted. Mild biliary ductal dilata tion appears unchanged. Mild peripancreatic infiltration has diminished since exam of June 13, 2018. There is no evidence for a bowel obstruction. The appendix is normal. There is no lymphadenopathy. T here are no suspicious osseous lesions. No pneumatosis or portal venous gas is present. There is no f ree air. There is no pancreatic ductal dilatation. Evaluation of the pancreas is suboptimal on this u nenhanced exam. IMPRESSION: 1. No urinary calculi or hydronephrosis. 2. Appropriately positioned common bile duct stent. Pneumobilia, as expected. Stable mild biliary samy jeb dilatation. 3. Mild pancreatic infiltration which has decreased since CT of June 13, 2018. This suggests acute pancreatitis. 4. No bowel obstruction. Normal appendix. Electronically signed by: Krzysztof Betancourt M.D. 07/01/2018 10:43 PM
[2018-07-01] MEDS ORDERED: ACETAMINOPHEN 325 MG TAB PO PRN (22:50)
[2018-07-01] MEDS ORDERED: ONDANSETRON INJ 2 MG/ML 2 ML VIAL IV PRN (22:50)
[2018-07-01] MEDS ORDERED: ALUMINUM/MAGNESIUM SUSP 30 ML UDC PO PRN (22:50)
[2018-07-01] MEDS ORDERED: POLYETHYLENE (MIRALAX) 17 GM PACK PO PRN (22:50)
[2018-07-01] MEDS ORDERED: MAGNESIUM HYDROXIDE SUSP 30 ML UDC PO PRN (22:50)
[2018-07-01] MEDS: MoRPHine SULFATE 2 MG/ML CARP IV PRN (23:25)
[2018-07-02] MEDS: TRAZODONE HCL 100 MG TAB PO SCH ×2 (00:51→21:16)
[2018-07-02] MEDS: metroNIDAZOLE 500 MG/100 ML BAG IV SCH ×3 (04:05→20:12)
[2018-07-02] MEDS: LEVOTHYROXINE SODIUM 200 MCG TABLET PO SCH (05:21)
[2018-07-02 06:23] LABS: Basophils # (auto) 0.01 K/uL (0-0.2); Basophils % (auto) 0.2 %; Eosinophils # (auto) 0.13 K/uL (0-0.5); Eosinophils % (auto) 2.7 %; Hematocrit (blood only) 37.1 % (42-52); Hemoglobin 12.3 g/dL (14.0-18.0); Immature Granulocytes # (auto) 0.01 K/uL (0.00-0.02); Immature Granulocytes % (auto) 0.2 %; Lymphocytes # (auto) 1.35 K/uL (1.2-3.4); Lymphocytes % (auto) 28.2 %; Mean Corpuscular Hgb Conc 33.2 g/dL (32-36); Mean Corpuscular Volume 90.7 fL (80-100); Mean Platelet Volume 9.2 fL (7.4-10.4); Monocytes # (auto) 0.44 K/uL (0.11-0.59); Monocytes % (auto) 9.2 %; Neutrophils # (auto) 2.85 K/uL (1.4-6.5); Neutrophils % (auto) 59.5 %; Platelet Count 270 K/uL (130-400); RDW Coefficient of Variation 13.2 % (11.5-14.5); RDW Standard Deviation 43.6 fL (36.4-46.3); Red Blood Count 4.09 M/uL (4.7-6.1); White Blood Count 4.79 K/uL (4.8-10.8)
[2018-07-02] MEDS: MoRPHine SULFATE 2 MG/ML CARP IV PRN ×4 (06:40→20:12)
[2018-07-02 06:54] LABS: Albumin Level 3.4 gm/dl (3.4-5.0); BUN Creatinine Ratio 16.2 (10-20); Calcium 8.8 mg/dl (8.5-10.1); Creatinine Clr Calc Pharmacy 118.2 ml/min; Est GFR (African American) 112.2; Est GFR (Non-African American) 96.8; Potassium 3.6 mmol/L (3.5-5.1)
[2018-07-02 06:57] LABS: Albumin Globulin Ratio 1.1 (0.9-2); Bilirubin,Total 0.7 mg/dl (0.2-1); Globulin 3.2 gm/dl (2.5-4.0); Total Protein 6.6 gm/dl (6.4-8.2)
[2018-07-02 07:40] LABS: Appearance Urine Clear (Clear); Bilirubin Urine Negative (Negative); Blood Urine Negative (Negative); Color Urine Yellow; Glucose Urine UA Negative (Negative); Ketones Urine Negative (Negative); Leukocyte Esterase Urine Negative (Negative); Nitrite Urine Negative (Negative); Protein Urine Negative (Negative); Urobilinogen Urine Negative (Negative); pH Urine 5.5 (4.5-7.5)
[2018-07-02] MEDS: VALSARTAN 80 MG TAB PO SCH (08:50)
[2018-07-02] MEDS: CHOLECALCIFEROL 1,000 UNITS TAB PO SCH (08:50)
[2018-07-02] MEDS: cefTRIAXone SODIUM 1,000 MG in DEXTROSE 5% 50 ML IV SCH (08:51)
[2018-07-02] MEDS: KETOROLAC TROMETHAMINE 15 MG/ML VIAL IV PRN ×2 (09:02→20:13)
--- NOTE | 2018-07-02 09:02 | Gastrointestinal Consultation ---
Date of Consultation July 02, 2018 Assessment & Plan (1) RUQ abdominal pain: Pt is a 57 y/o male w recent gallstone pancreatitis s/p ERCP w choledocholithiasis removal, sphincterectomy, and biliary stent placement on 06/10/18; returned to ED after having progressive worsening of RUQ abd pain r adiating to R flank, nausea all started just early this week. LFTs have normalized. Repeat CT abd/pelvis w/ stable biliary dilation, decreased pancreas inflammation, and biliary stent in place, appear to be patent. Unsure if pain may be related to stent being in place? - Keep NPO - Plan for ERCP in OR today by Dr. Valdes, possible biliary stent removal vs exchange (if sludge/stone present). - Add Protonix 40mg qAM for c/o heartburn. - Will give further recs after ERCP is completed. Supervising Physician Co-Signing Physician Notes I performed a history and physical examination of the patient, including specifically on physical exam - soft, nontender abdomen. I have discussed the patient's management with Susan. Please refer to the nurse practitioner's note for the documented findings and plan of care. ERCP for stent removal History of Present Illness Reason for Consultation: Abd pain, recent biliary stent placement Requesting Physician: Dr. Milton Ortiz Attending Physician: Dr. Candy Valdes History of Present Illness Pt is a 57 y/o male who presented last night w c/o progressive worsening of RUQ abd pain radiating to R flank pain. He was recently admitted w gallstone pancreatitis s/p ERCP w choledocholithiasis removal, sphincterectomy, and biliary stent placement on 06/10/18. He is s/p cholecystectomy but has remnant cystic duct which contain stone as noted in CT scan. He said was feeling well about 1.5 week after ERCP procedure but then the pain returned similar to previous pancreatitis episode. He has nausea but no vomiting. Denies any fever, chills, CP, SOB. Bowels move regularly. Upon eval, no signs of leukocytosis, H/H stable, LFT has normalized. KUB normal. CT abd/pelvis w/o contrast showed no urinary calculi or hydronephrosis. + CBD stent w pneumobilia, stable biliary duct dilation, mild pancreatitic infiltration decreased compared to CT 06/13/18. No signs of bowel obstruction and normal appendix. Allergies Allergy/AdvReac Type Severity Reaction Status Date / Time No Known Allergies Allergy Verified 07/01/18 19:34 Home Medications Home Medications Medication Instructions Recorded Confirmed Type celecoxib 200 mg PO QAM 05/05/18 07/01/18 History cholecalciferol (vitamin D3) 1,000 units PO QAM 05/05/18 07/01/18 History [Vitamin D3] levothyroxine 200 mcg PO QAM 05/05/18 07/01/18 History simvastatin 20 mg PO HS 05/05/18 07/01/18 History tramadol 100 mg PO BID 05/05/18 07/01/18 History trazodone 100 mg PO HS 05/05/18 07/01/18 History venlafaxine 37.5 mg PO HS 05/05/18 07/01/18 History acetaminophen [Tylenol Arthritis 1,300 mg PO BID 07/01/18 07/01/18 History Pain] [id number]-ast 1 cap PO QAM 07/01/18 07/01/18 History [krill oil] ranitidine HCl 150 mg PO HS 07/01/18 07/01/18 History valsartan 40 mg PO DAILY 07/01/18 07/01/18 History Patient History Medical History Insomnia (Chronic) HTN (hypertension) (Chronic) Dyslipidemia (Chronic) Osteoarthritis (Chronic) Irritable bowel syndrome (Chronic 12/09/12) Hypothyroidism (Chronic 12/09/12) GERD (gastroesophageal reflux disease) (Chronic 12/09/12) Surgical History History of tonsillectomy (Chronic) History of orthopedic surgery (Chronic) Shoulder arthroscopy, knee arthroscopy History of cholecystectomy (Chronic 12/09/12) Family History Other Colon cancer Hypertension Social History Preferred Language: Persian Communication Ability: Effective Plant Director Required: No Beliefs That Will Affect Care: None marital status: Current Living Situation: Spouse Other Information That Helps Us Care for You: No Feels Safe at Home: Yes Safety Concerns: Feels Safe At This Time Smoking Status: Never smoker Hx Alcohol Use: Yes Hx Substance Use: No Review of Systems Constitutional: no fever and no chills Respiratory: no cough and no dyspnea Cardiovascular: no chest pain Gastrointestinal: as per Subjective / HPI and + heartburn Integumentary: no pruritus and no yellowing of the skin Physical Exam Vital Signs (Past 24 Hours): Last Vital Signs Temp 36.7 C 07/02/18 08:04 Pulse 76 07/02/18 08:04 Resp 15 07/02/18 08:04 BP 120/70 07/02/18 08:04 Pulse Ox 95 07/02/18 08:04 Constitutional: WD/WN, vitals as above well groomed, cooperative and comfortable Eyes: PERRL, conjunctivae normal, anicteric sclerae ENMT: external ear and nose normal, oropharynx normal Respiratory: normal respiratory effort, lungs clear to auscultation Cardiovascular: RRR, no murmur, no edema Gastrointestinal (Abdomen): Inspection/Auscultation: + hypoactive bowel sounds Percussion/Palpation: + abdomen tender (RUQ) and abdomen soft Skin: no rashes, warm and dry no jaundice Neurologic: Motor/Sensory: no asterixis Psychiatric: A+Ox3, euthymic affect Lymphatic: no lymphedema Results & Data Laboratory Results Laboratory Results - last 72 hr 07/01/18 07/01/18 07/01/18 19:00 19:00 19:00 WBC 5.81 RBC 4.00 L Hgb 12.3 L Hct 36.2 L MCV 90.5 MCH 30.8 MCHC 34.0 RDW Std Deviation 42.7 RDW Coeff of Jean 13.0 Plt Count 307 MPV 9.0 Immature Gran % (Auto) 0.2 Neut % (Auto) 65.5 Lymph % (Auto) 25.5 [place] % (Auto) 6.9 Eos % (Auto) 1.7 Baso % (Auto) 0.2 Immature Gran # (Auto) 0.01 Neut # (Auto) 3.81 Lymph # (Auto) 1.48 [place] # (Auto) 0.40 Eos # (Auto) 0.10 Baso # (Auto) 0.01 PT 10.4 INR 1.0 APTT 24.4 PTT Ratio 0.9 Sodium 139 Potassium 3.6 Chloride 107 Carbon Dioxide 28 Anion Gap 4.0 BUN 18 Creatinine 0.85 Est Cr Clr Drug Dosing 114.0 Est GFR ( Amer) 110.5 Est GFR (Non-Af Amer) 95.4 BUN/Creatinine Ratio 21.7 H Glucose 100 H Lactate Calcium 8.4 L Total Bilirubin 0.5 AST 22 ALT 39 Alkaline Phosphatase 80 Total Protein 7.1 Albumin 3.7 Globulin 3.4 Albumin/Globulin Ratio 1.1 Urine Color Urine Appearance Urine pH Ur Specific [place] Urine Protein Urine Glucose (UA) Urine Ketones Urine Blood Urine Nitrite Urine Bilirubin Urine Urobilinogen Ur Leukocyte Esterase 07/01/18 07/02/18 07/02/18 19:00 05:49 05:49 WBC 4.79 L RBC 4.09 L Hgb 12.3 L Hct 37.1 L MCV 90.7 MCH 30.1 MCHC 33.2 RDW Std Deviation 43.6 RDW Coeff of Jean 13.2 Plt Count 270 MPV 9.2 Immature Gran % (Auto) 0.2 Neut % (Auto) 59.5 Lymph % (Auto) 28.2 [place] % (Auto) 9.2 Eos % (Auto) 2.7 Baso % (Auto) 0.2 Immature Gran # (Auto) 0.01 Neut # (Auto) 2.85 Lymph # (Auto) 1.35 [place] # (Auto) 0.44 Eos # (Auto) 0.13 Baso # (Auto) 0.01 PT INR APTT PTT Ratio Sodium 141 Potassium 3.6 Chloride 109 H Carbon Dioxide 27 Anion Gap 6.0 BUN 13 Creatinine 0.82 Est Cr Clr Drug Dosing 118.2 Est GFR ( Amer) 112.2 Est GFR (Non-Af Amer) 96.8 BUN/Creatinine Ratio 16.2 Glucose 103 H Lactate 1.0 Calcium 8.8 Total Bilirubin 0.7 AST 23 ALT 38 Alkaline Phosphatase 75 Total Protein 6.6 Albumin 3.4 Globulin 3.2 Albumin/Globulin Ratio 1.1 Urine Color Urine Appearance Urine pH Ur Specific [place] Urine Protein Urine Glucose (UA) Urine Ketones Urine Blood Urine Nitrite Urine Bilirubin Urine Urobilinogen Ur Leukocyte Esterase 07/02/18 06:05 WBC RBC Hgb Hct MCV MCH MCHC RDW Std Deviation RDW Coeff of Jean Plt Count MPV Immature Gran % (Auto) Neut % (Auto) Lymph % (Auto) [place] % (Auto) Eos % (Auto) Baso % (Auto) Immature Gran # (Auto) Neut # (Auto) Lymph # (Auto) [place] # (Auto) Eos # (Auto) Baso # (Auto) PT INR APTT PTT Ratio Sodium Potassium Chloride Carbon Dioxide Anion Gap BUN Creatinine Est Cr Clr Drug Dosing Est GFR ( Amer) Est GFR (Non-Af Amer) BUN/Creatinine Ratio Glucose Lactate Calcium Total Bilirubin AST ALT Alkaline Phosphatase Total Protein Albumin Globulin Albumin/Globulin Ratio Urine Color Yellow Urine Appearance Clear Urine pH 5.5 Ur Specific [place] 1.020 Urine Protein Negative Urine Glucose (UA) Negative Urine Ketones Negative Urine Blood Negative Urine Nitrite Negative Urine Bilirubin Negative Urine Urobilinogen Negative Ur Leukocyte Esterase Negative
[2018-07-02] MEDS: PANTOprazole 40 MG TAB PO SCH (09:43)
[2018-07-02] MEDS ORDERED: INDOMETHACIN 50 MG SUPP PR ONE (13:57)
[2018-07-02] MEDS ORDERED: MIDAZOLAM HCL 1 MG/ML 2ML VIAL ONE (13:57)
[2018-07-02] MEDS ORDERED: LIDOCAINE HCL 2% 2 ML VIAL/AMP(20MG/ML) INFIL ONE ×2 (13:58→14:46)
[2018-07-02] MEDS ORDERED: PROPOFOL IV EMULSION 10 MG/ML 20 ML VIAL IV ONE ×3 (14:16→15:07)
[2018-07-02] MEDS ORDERED: ONDANSETRON INJ 2 MG/ML 2 ML VIAL ONE (14:16)
[2018-07-02] MEDS ORDERED: fentaNYL citrate 100 MCG/2 ML VIAL ONE ×2 (14:25→15:00)
--- NOTE | 2018-07-02 15:04 | Hospitalist Progress Note ---
Date of Service July 02, 2018 Assessment & Plan (1) Abdominal pain: Present on admission with abdominal pain On 06/10/18 Underwent ERCP with sphincterotomy and biliary stent placement and [address] abd/pelvis on admission showed mild pancreatic infiltration which has decreased since CT of June 13, 2018. KUB showed no evidence for a bowel obstruction. Gastro on board and plan for ERCP today Continue IV abx with rocephin and flagyl Blood cx pending Continue pain control Keep NPO for now (2) Back pain: Pain improves (3) HTN (hypertension): BP stable Continue valsartan Stable (4) Dyslipidemia: Continue statin (5) Osteoarthritis: On morphine and ketorolac IV prn Stable (6) Hypothyroidism: continue levothyroxine (7) GERD (gastroesophageal reflux disease): Continue ranitidine (8) Insomnia: continue trazadone (9) DVT prophylaxis: SCDS/Teds (Plan for procedure) CODE STATUS FULL CODE Disposition Will discharge once medically stable Subjective Pt was seen and examined Lying in bed with no distress Pt said that abdominal pain slightly improves Denies any chest pain, palpitation, dizziness, N/V and SOB Physical Exam Vital Signs (Past 24 Hours): Last Vital Signs Temp 37 C 07/02/18 13:20 Pulse 83 07/02/18 13:20 Resp 20 07/02/18 13:20 BP 137/72 07/02/18 13:20 Pulse Ox 96 07/02/18 13:20 Physical Exam: General- No acute distress Head- atraumatic Eyes- PERRL, EOMI, ENT- oropharynx clear Neck- supple, no JVD Lungs- clear to auscultation Heart- regular rhythm; no murmur Abdomen- normal bowel sounds, +tender in RUQ area with palpation Extremities- no calf tenderness Neuro- alert, oriented x 3; PERRL, EOMI; no facial palsy; no dysarthria Skin- warm & dry (1) Hypothyroidism Hypothyroidism type: unspecified Qualified Code(s): E03.9 - Hypothyroidism, unspecified (2) Abdominal pain Abdominal location: unspecified location Qualified Code(s): R10.9 - Unspecified abdominal pain (3) HTN (hypertension) Hypertension type: essential hypertension Qualified Code(s): I10 - Essential (primary) hypertension
--- NOTE | 2018-07-02 15:22 | Operative Report ---
Post Operative Report Pre & Post Diagnosis Operation Date: 07/02/18 09:00 Pre-Op Diagnosis: ABDOMINAL PAIN,RECENT STENT PLACEMENT Post-Op Diagnosis: ABDOMINAL PAIN,RECENT STENT PLACEMENT Procedure Operation Date: 07/02/18 09:00 Actual Procedures p Endoscopic Retrograde Cholangiopancreatogram(Not Applicable) - Candy Valdes MD Surgeon Candy Valdes MD Fish Frog Or Oyster Farmer None Estimated Blood Loss 0 Findings See Below (CBD stent removal, sludge removed, possible mid CBD narrowing, intact GB, stent replacement) Specimens CBD stenosis Description of Procedure ERCP I attest to the content of the Intraoperative Record and any orders documented therein. Any exceptions are noted below.
--- NOTE | 2018-07-02 15:47 | GI REPORT ---
Patient Name: Pepe Reeder Procedure Date: 07/02/2018 1:59 PM Date of : 1960 Admit Type: Inpatient Age: 57 Gender: Male Attending MD: Candy Valdes MD Procedure: ERCP Providers: Candy Valdes MD Referring MD: Ean COOL MD Indications: Abdominal pain of suspected biliary origin, Follow-up of bile duct stone(s), Stent change Medicines: Monitored Anesthesia Care Complications: No immediate complications. Estimated Blood Loss: Estimated blood loss: none. Procedure: Pre-Anesthesia Assessment: - Prior to the procedure, a History and Physical was performed, and patient medications and allergies were reviewed. The patient is competent. The risks and benefits of the procedure and the sedation options and risks were discussed with the patient. All questions were answered and informed consent was obtained. Patient identification and proposed procedure were verified by the physician and the nurse in the procedure room. Mental Status Examination: alert and oriented. Airway Examination: normal oropharyngeal airway and neck mobility. Respiratory Examination: clear to auscultation. CV Examination: normal. ASA Grade Assessment: II - A patient with mild systemic disease. After reviewing the risks and benefits, the patient was deemed in satisfactory condition to undergo the procedure. The anesthesia plan was to use monitored anesthesia care (MAC). Immediately prior to administration of medications, the patient was re-assessed for adequacy to receive sedatives. The heart rate, respiratory rate, oxygen saturations, blood pressure, adequacy of pulmonary ventilation, and response to care were monitored throughout the procedure. The physical status of the patient was re-assessed after the procedure. After obtaining informed consent, the scope was passed under direct vision. Throughout the procedure, the patient's blood pressure, pulse, and oxygen saturations were monitored continuously. The SCOPE was introduced through the mouth, and advanced to the duodenum and used to inject contrast into the bile duct. The ERCP was accomplished without difficulty. The patient tolerated the procedure well. Findings: A biliary stent was visible on the concrete panel installer film. The esophagus was successfully intubated under direct vision. The scope was advanced to a normal major papilla in the descending duodenum without detailed examination of the pharynx, larynx and associated structures, and upper GI tract. The upper GI tract was grossly normal. One plastic stent originating in the biliary tree was emerging from the major papilla. The stent was visibly occluded. A biliary sphincterotomy had been performed. The sphincterotomy appeared open. One stent was removed from the biliary tree using a snare. A 0.035 inch angled standard wire was passed into the biliary tree. The Fusion OMNI sphincterotome was passed over the guidewire and the bile duct was then deeply cannulated. Contrast was injected. I personally interpreted the bile duct images. Ductal flow of contrast was adequate. Image quality was adequate. Contrast extended to the main bile duct. The main bile duct was moderately dilated. The largest diameter was 9 mm. The middle third of the main bile duct near the cystic duct take off was mildly narrowed, likely reactive to passing prior stones. Opacification of the cystic duct and gallbladder was successful. There is a large gallbladder remnant. No stones in the cystic duct. The biliary tree was swept with an 11.5 mm balloon starting at the bifurcation. Extensive sludge was swept from the duct. The middle third of the main bile duct was biopsied with a cold forceps for histology. Verification of patient identification for the specimen was done by the physician and nurse using the patient's name and date. One 10 Fr by 8 cm plastic stent with a single external flap and a single internal flap was placed into the common bile duct. Bile flowed through the stent. The stent was in good position. The total fluoroscopy exposure time was 2 minutes and 18 seconds. PD was not cannulated nor injected with contrast. Impression: - One visibly occluded stent from the biliary tree was seen in the major papilla. This was removed. - Prior biliary sphincterotomy appeared open. - No surgical clips seen and there is a large gallbladder remnant. No stones seen in the cystic duct. - A mild narrowing in the middle third of the main bile duct near the cystic duct take off. This was benign appearing, ?reactive. This was biopsied. - The entire main bile duct was moderately dilated. - The biliary tree was swept and sludge was found. - One plastic stent was placed into the common bile duct due to sludge and need for repeat cholecystectomy. Recommendation: - [facility]. - Refer to a surgeon for cholecystectomy. - Repeat ERCP in 6 weeks to remove stent after surgery. Candy Valdes MD 07/02/2018 3:46:42 PM This report has been signed electronically. Note Initiated On: 07/02/2018 1:59 PM Number of Addenda: 0 I attest to the content of the Intraoperative Record and orders documented therein, exceptions below {[id number]}
--- NOTE | 2018-07-02 15:49 | Anesthesiology Progress Note ---
Date of Service July 02, 2018 Anesthesia Post Procedure Vital Signs Vital Signs: Temp Pulse Pulse Pulse Resp BP BP 07/02/18 15:40 76 16 112/78 07/02/18 15:31 98.4 F 82 21 106/52 L 07/02/18 13:20 98.6 F 83 20 137/72 07/02/18 08:04 98.1 F 76 15 120/70 07/01/18 23:05 98.2 F 75 20 07/01/18 22:21 15 07/01/18 22:01 75 16 07/01/18 22:00 71 12 131/84 07/01/18 21:45 73 13 158/91 H 07/01/18 21:31 78 17 07/01/18 21:30 73 14 137/90 07/01/18 21:16 75 9 L 160/90 H 07/01/18 21:15 72 73 14 07/01/18 21:12 83 25 H 169/119 H 07/01/18 21:00 77 21 140/88 07/01/18 20:45 69 16 07/01/18 20:30 72 16 07/01/18 20:15 76 88 20 07/01/18 20:02 78 20 07/01/18 20:00 79 15 07/01/18 19:45 76 16 07/01/18 19:39 75 16 07/01/18 19:13 76 14 143/89 H 07/01/18 18:23 98.2 F 76 20 142/89 H 07/01/18 18:10 78 BP Pulse Ox 07/02/18 15:40 95 07/02/18 15:31 100 07/02/18 13:20 96 07/02/18 08:04 95 07/01/18 23:05 150/87 H 97 07/01/18 22:21 07/01/18 22:01 92 07/01/18 22:00 96 07/01/18 21:45 95 07/01/18 21:31 95 07/01/18 21:30 94 07/01/18 21:16 96 07/01/18 21:15 160/90 H 97 07/01/18 21:12 97 07/01/18 21:00 96 07/01/18 20:45 97 07/01/18 20:30 97 07/01/18 20:15 148/80 H 96 07/01/18 20:02 160/88 H 07/01/18 20:00 98 07/01/18 19:45 96 07/01/18 19:39 94 07/01/18 19:13 95 07/01/18 18:23 97 07/01/18 18:10 98 Pain Intensity Back: Pain Intensity: 3 Notes Mental Status: alert / awake / arousable and participated in evaluation Patient Amnestic to Procedure: Yes Nausea / Vomiting: adequately controlled Pain: adequately controlled Airway Patency, RR, SpO2: stable & adequate BP & HR: stable & adequate Hydration State: stable & adequate Anesthetic Complications: no major complications apparent and Pt Satisfied with anesthetic care
--- NOTE | 2018-07-02 15:50 | Fluoroscopy Report ---
[place] ERCP biliary ductal CLINICAL HISTORY: ERCP TO BE DONE IN THE [facility] COMPARISON STUDY: Abdomen and pelvis CT 07/01/2018. FLUOROSCOPY TIME: 2 minutes and 18 seconds. FINDINGS: 11 fluoroscopic spot images submitted. A common bile duct stent is identified. An endoscope is seen at the second portion of the duodenum and the ampulla is cannulated. The stent is removed. C ontrast is injected into the common bile duct. A balloon sweep was performed. This is followed by sonia cement of a common bile duct stent which appears in good position. IMPRESSION: Fluoroscopy provided for common bile duct stent exchange. Electronically signed by: Robinson Walker M.D. 07/02/2018 3:49 PM
[2018-07-02] MEDS: VENLAFAXINE HCL XR 37.5 MG CAPXR PO SCH (21:16)
[2018-07-02] MEDS: SIMVASTATIN 20 MG TAB PO SCH (21:16)
[2018-07-03] MEDS: metroNIDAZOLE 500 MG/100 ML BAG IV SCH ×3 (04:00→20:24)
[2018-07-03] MEDS: KETOROLAC TROMETHAMINE 15 MG/ML VIAL IV PRN ×4 (06:14→23:45)
[2018-07-03] MEDS: LEVOTHYROXINE SODIUM 200 MCG TABLET PO SCH (06:14)
[2018-07-03] MEDS: MoRPHine SULFATE 2 MG/ML CARP IV PRN (09:05)
[2018-07-03] MEDS: cefTRIAXone SODIUM 1,000 MG in DEXTROSE 5% 50 ML IV SCH (09:06)
--- NOTE | 2018-07-03 10:21 | Progress Note ---
Date of Service July 03, 2018 Subjective Patient was seen and examined today, feels well. He wants to surgery as inpatient and would like to have surgery this admission to remove his large GB remnant. Otherwise tolerated ERCP well and had stent exchange. On exam abdomen is soft. Plan: Please consult surgery to see him. Otherwise, no further work needed from GI stand point. Plan for ERCP with stent removal after cholecystectomy. Please recall GI if needed. Physical Exam Vital Signs (Past 24 Hours): Last Vital Signs Temp 36.9 C 07/03/18 07:08 Pulse 80 07/03/18 07:08 Resp 16 07/03/18 07:08 BP 111/67 07/03/18 07:08 Pulse Ox 93 07/03/18 07:08
[2018-07-03] MEDS: VALSARTAN 80 MG TAB PO SCH (10:38)
[2018-07-03] MEDS: CHOLECALCIFEROL 1,000 UNITS TAB PO SCH (10:38)
[2018-07-03] MEDS: PANTOprazole 40 MG TAB PO SCH (10:38)
--- NOTE | 2018-07-03 10:50 | Hospitalist Progress Note ---
Date of Service July 03, 2018 Assessment & Plan (1) Abdominal pain: Present on admission with abdominal pain On 06/10/18 Underwent ERCP with sphincterotomy and biliary stent placement and [address] abd/pelvis on admission showed mild pancreatic infiltration which has decreased since CT of June 13, 2018. KUB showed no evidence for a bowel obstruction. S/P ERCP done yesterday with stent replaced and large gallbladder seen Will d/c IV abx with rocephin and flagyl Case discussed with Gastro recommended follow up in 6-8 weeks for ERCP with stent removal after cholecystectomy. Pt would like to get cholecystectomy done during this admission (He said that he had his gallbladder removed back in 1997) Surgery consult Case discussed with Pito that will see the patient for possible cholecystectomy Blood cx no growth Continue pain control Keep NPO for now (2) Back pain: Pain improves (3) HTN (hypertension): BP stable Continue valsartan Stable (4) Dyslipidemia: Continue statin (5) Osteoarthritis: On morphine and ketorolac IV prn Stable (6) Hypothyroidism: continue levothyroxine (7) GERD (gastroesophageal reflux disease): Continue ranitidine (8) Insomnia: continue trazadone (9) DVT prophylaxis: SCDS/Teds (Plan for procedure) CODE STATUS FULL CODE Disposition Will discharge once medically stable Subjective Pt was seen and examined Lying in bed with no distress Pt said that last night he tried to eat, but he said that his pain got worst He said that he continues to have discomfort in RUQ area Pt said that he would like to see the surgeon while in the hospital to get his gallbladder removed Denies any chest pain, palpitation, dizziness and SOB Physical Exam Vital Signs (Past 24 Hours): Last Vital Signs Temp 36.9 C 07/03/18 07:08 Pulse 80 07/03/18 07:08 Resp 16 07/03/18 07:08 BP 111/67 07/03/18 07:08 Pulse Ox 93 07/03/18 07:08 Physical Exam: General- No acute distress Head- atraumatic Eyes- PERRL, EOMI, ENT- oropharynx clear Neck- supple, no JVD Lungs- clear to auscultation Heart- regular rhythm; no murmur Abdomen- normal bowel sounds, +tender in RUQ area with palpation Extremities- no calf tenderness Neuro- alert, oriented x 3; PERRL, EOMI; no facial palsy; no dysarthria Skin- warm & dry (1) Hypothyroidism Hypothyroidism type: unspecified Qualified Code(s): E03.9 - Hypothyroidism, unspecified (2) Abdominal pain Abdominal location: unspecified location Qualified Code(s): R10.9 - Unspecified abdominal pain (3) HTN (hypertension) Hypertension type: essential hypertension Qualified Code(s): I10 - Essential (primary) hypertension
--- NOTE | 2018-07-03 14:29 | Surgery Consultation ---
Date of Consultation July 03, 2018 Assessment & Plan (1) RUQ abdominal pain: Patient seen and examined with Dr. Sheldon. Hospital records reviewed. Recent imaging and labwork reviewed. Will plan for Laparoscopic Cholecystectomy, Possible Open Cholecystectomy, Possible Intraoperative Cholangiogram tomorrow in OR with Dr. Sheldon. OR notified. Risks of surgery reviewed with patient and patient's . All questions answered. Patient ok to have full liquid diet. NPO after midnight. History of Present Illness Reason for Consultation: Evaluate for cholecystectomy Attending Physician: Milton Ortiz MD History of Present Illness Mr. Reeder is a 57-year-old male with history of HTN, IBS, Hypothyroidism, GERD who presented to [facility] ED for evaluation of abdominal pain. Patient reports that he had his gallbladder removed back in 1997 at [facility]. He reports that he has not felt well for the last 20 years with off and on abdominal pain. Patient was recently hospitalized at [facility] from 06/09-06/16/2018 for right upper quadrant abdominal pain. During hospitalization, patient underwent an ERCP (Dr. Hurt) with sphincterotomy and biliary stent placement as well as a 16mm stone was removed. Patient was discharged to home with the intent to remove the stent during follow-up ERCP in 4 weeks. Patient reports that he felt good and was doing well after discharge until 07/01/2018 when he developed the same right upper quadrant abdominal pain that brought him to the ED earlier this month. Patient was once again evaluated by GI who recommended ERCP. Patient underwent ERCP by Dr. Valdes yesterday - findings- CBD stent removal, sludge removed, possible mid CBD narrowing, intact GB, stent replacement. Patient and patient's are requesting remainder of gallbladder be removed during this hospital stay. Allergies Allergy/AdvReac Type Severity Reaction Status Date / Time No Known Allergies Allergy Verified 07/01/18 19:34 Home Medications Home Medications Medication Instructions Recorded Confirmed Type celecoxib 200 mg PO QAM 05/05/18 07/01/18 History cholecalciferol (vitamin D3) 1,000 units PO QAM 05/05/18 07/01/18 History [Vitamin D3] levothyroxine 200 mcg PO QAM 05/05/18 07/01/18 History simvastatin 20 mg PO HS 05/05/18 07/01/18 History tramadol 100 mg PO BID 05/05/18 07/01/18 History trazodone 100 mg PO HS 05/05/18 07/01/18 History venlafaxine 37.5 mg PO HS 05/05/18 07/01/18 History acetaminophen [Tylenol Arthritis 1,300 mg PO BID 07/01/18 07/01/18 History Pain] idovf-ud-0-gvs-vzk-eeeuvtx-ast 1 cap PO QAM 07/01/18 07/01/18 History [krill oil] ranitidine HCl 150 mg PO HS 07/01/18 07/01/18 History valsartan 40 mg PO DAILY 07/01/18 07/01/18 History Patient History Medical History Insomnia (Chronic) HTN (hypertension) (Chronic) Dyslipidemia (Chronic) Osteoarthritis (Chronic) Irritable bowel syndrome (Chronic 12/09/12) Hypothyroidism (Chronic 12/09/12) GERD (gastroesophageal reflux disease) (Chronic 12/09/12) Surgical History History of tonsillectomy (Chronic) History of orthopedic surgery (Chronic) Shoulder arthroscopy, knee arthroscopy History of cholecystectomy (Chronic 12/09/12) Family History Other Colon cancer Hypertension Social History Preferred Language: Mauritanian Communication Ability: Effective Rackman Required: No Beliefs That Will Affect Care: None marital status: Current Living Situation: Spouse Other Information That Helps Us Care for You: No Feels Safe at Home: Yes Safety Concerns: Feels Safe At This Time Smoking Status: Never smoker Hx Alcohol Use: Yes Hx Substance Use: No Physical Exam Vital Signs (Past 24 Hours): Last Vital Signs Temp 36.9 C 07/03/18 07:08 Pulse 80 07/03/18 07:08 Resp 16 07/03/18 07:08 BP 111/67 07/03/18 07:08 Pulse Ox 93 07/03/18 07:08 Gastrointestinal (Abdomen): Percussion/Palpation: + abdomen tender (mildly tender. ) and abdomen soft; no guarding and abdomen not rigid
[2018-07-03] MEDS: SIMVASTATIN 20 MG TAB PO SCH (20:25)
[2018-07-03] MEDS: VENLAFAXINE HCL XR 37.5 MG CAPXR PO SCH (20:25)
[2018-07-03] MEDS: TRAZODONE HCL 100 MG TAB PO SCH (20:26)
[2018-07-04] MEDS: metroNIDAZOLE 500 MG/100 ML BAG IV SCH ×3 (04:05→21:03)
[2018-07-04] MEDS: LEVOTHYROXINE SODIUM 200 MCG TABLET PO SCH (06:08)
--- NOTE | 2018-07-04 07:15 | History & Physical Bridge Note ---
Date of Service July 04, 2018 History & Physical Bridge Note I have examined the patient, reviewed the History & Physical and in the interval since the performance of the History & Physical I have noted the following changes of clinical significance: no changes noted all questions answered, proceed with hien morales possible open
[2018-07-04] MEDS ORDERED: PROPOFOL IV EMULSION 10 MG/ML 20 ML VIAL IV ONE (07:17)
[2018-07-04] MEDS ORDERED: MIDAZOLAM HCL 1 MG/ML 2ML VIAL ONE (07:17)
[2018-07-04] MEDS ORDERED: ROCURONIUM BROMIDE 10 MG/ML 5 ML VIAL ONE (07:17)
[2018-07-04] MEDS ORDERED: DEXAMETHASONE SOD INJ 4 MG/ML VIAL ONE (07:17)
[2018-07-04] MEDS ORDERED: ONDANSETRON INJ 2 MG/ML 2 ML VIAL ONE (07:17)
[2018-07-04] MEDS ORDERED: fentaNYL citrate 100 MCG/2 ML VIAL ONE ×3 (07:17→09:23)
--- NOTE | 2018-07-04 07:18 | Anesthesiology Consultation ---
Date of Service July 04, 2018 Assessment & Plan (1) Encounter for pre-operative examination: Chart Review Chart Review: Acceptable Risk for Surgery Consults Requested none ASA ASA2 Proposed Anesthesia Anesthesia Type: General Risk / Benefits Reviewed With: PT / POA / Parent / Guardian, Accepts Plan and Informed Consent Obtained NPO Date Last Intake of Fluids: 07/04/18 Time Last Intake of Fluids: 00:01 Date Last Intake of Solids: 07/03/18 Time Last Intake of Solids: 17:00 History Surgery Operation Date: 07/02/18 09:00 Proposed Procedures p Endoscopic Retrograde Cholangiopancreato - Candy Valdes MD Operation Date: 07/04/18 07:30 Proposed Procedures p Laparoscopic Cholecystectomy - Thom Sheldon MD Height/Weight Height: 6 ft Weight: 99 kg Allergies Allergy/AdvReac Type Severity Reaction Status Date / Time No Known Allergies Allergy Verified 07/01/18 19:34 Medications Home Medications Medication Instructions Recorded Confirmed Last Taken celecoxib 200 mg PO QAM 05/05/18 07/01/18 07/01/18 cholecalciferol (vitamin D3) 1,000 units PO QAM 05/05/18 07/01/18 07/01/18 [Vitamin D3] levothyroxine 200 mcg PO QAM 05/05/18 07/01/18 07/01/18 simvastatin 20 mg PO 05/05/18 07/01/18 06/30/18 tramadol 100 mg PO BID 05/05/18 07/01/18 07/01/18 12:00 trazodone 100 mg PO 05/05/18 07/01/18 06/30/18 venlafaxine 37.5 mg PO 05/05/18 07/01/18 06/30/18 acetaminophen [Tylenol Arthritis 1,300 mg PO BID 07/01/18 07/01/18 07/01/18 12:00 Pain] geexo-oo-0-clv-zaq-nyevjeu-ast 1 cap PO QAM 07/01/18 07/01/18 07/01/18 [krill oil] ranitidine HCl 150 mg PO 07/01/18 07/01/18 06/30/18 valsartan 40 mg PO DAILY 07/01/18 07/01/18 Unknown Active Medications Generic Name Dose Route Start Last Admin Trade Name Geoff PRN Reason Stop Dose Admin Metronidazole 500 mg in 100 mls @ 100 mls/hr 07/02/18 04:00 07/04/18 05:40 Flagyl IV 07/12/18 03:59 Infused Q8H RITA Infusion Ceftriaxone Sodium 1,000 mg/ 50 mls @ 100 mls/hr 07/02/18 09:00 07/03/18 10:40 Dextrose IV 07/12/18 08:59 Infused Q24H RITA Infusion Protocol Ketorolac Tromethamine 15 mg 07/01/18 22:50 07/03/18 23:45 Toradol IV 07/06/18 22:49 15 mg Q6H PRN Administration Pain Levothyroxine Sodium 200 mcg 07/02/18 06:30 07/04/18 06:08 Synthroid PO 08/01/18 06:29 Not Given DAILYBB RITA Morphine Sulfate 2 mg 07/01/18 22:50 07/03/18 09:05 Morphine Sulfate IV 07/15/18 22:49 2 mg Q4H PRN Administration Severe Pain Pantoprazole Sodium 40 mg 07/02/18 09:00 07/03/18 10:38 Protonix PO 08/01/18 08:59 Not Given QAM RITA Ranitidine HCl 150 mg 07/02/18 21:00 07/03/18 20:26 Zantac PO 08/01/18 20:59 150 mg HS RITA Administration Simvastatin 20 mg 07/02/18 21:00 07/03/18 20:25 Zocor PO 08/01/18 20:59 20 mg HS RITA Administration Trazodone HCl 100 mg 07/02/18 21:00 07/03/18 20:26 Desyrel PO 08/01/18 20:59 100 mg HS RITA Administration Valsartan 40 mg 07/02/18 09:00 07/03/18 10:38 Diovan PO 08/01/18 08:59 Not Given DAILY RITA Venlafaxine HCl 37.5 mg 07/02/18 21:00 07/03/18 20:25 Effexor Extended Release PO 08/01/18 20:59 37.5 mg HS RITA Administration Vitamin D 1,000 units 07/02/18 09:00 07/03/18 10:38 Vitamin D3 PO 08/01/18 08:59 Not Given QAM RITA Past Medical History Medical History Insomnia (Chronic) HTN (hypertension) (Chronic) Dyslipidemia (Chronic) Osteoarthritis (Chronic) Irritable bowel syndrome (Chronic 12/09/12) Hypothyroidism (Chronic 12/09/12) GERD (gastroesophageal reflux disease) (Chronic 12/09/12) Past Family History Family History Other Colon cancer Hypertension Past Surgical History Surgical History History of tonsillectomy (Chronic) History of orthopedic surgery (Chronic) Shoulder arthroscopy, knee arthroscopy History of cholecystectomy (Chronic 12/09/12) Past Anesthesia History No Hx of Anesthesia Complications and No Family Hx of Anesthesia Complications History of PONV No Motion Sickness Screening History of Motion Sickness: No Social History Smoking Status: Never smoker Do You Dip or Chew Tobacco: No Hx Alcohol Use: Yes Alcohol type: wine alcohol intake frequency: holidays/special occasions only Hx Substance Use: No substance use type: does not use Exercise / Class Metabolic Activity II 4-5 Yardwork/Stairs/Walk up hill Physical Exam Vital Signs Last Vital Signs Temp 97.7 F 07/04/18 06:44 Pulse 68 07/04/18 06:44 Resp 16 07/04/18 06:44 BP 112/70 07/04/18 06:44 Pulse Ox 97 07/04/18 06:44 ENMT Mouth: no dentition abnormality Thyromental Distance: > or= 3.5 Finger Breadths Mallampati Class: II Neck normal visual inspection Respiratory normal respiratory effort Auscultation: lungs clear to auscultation bilaterally Cardiovascular Rate/Rhythm: regular rate and regular rhythm Testing Electrocardiogram Date: 06/09/18 Findings: + NSR @ (64 bpm) Laboratory Results 07/02/18 05:49 07/02/18 05:49 PT 10.4 Seconds (9.0-12.0) 07/01/18 19:00 INR 1.0 (0.9-1.1) 07/01/18 19:00 APTT 24.4 Seconds (21.0-31.0) 07/01/18 19:00 Urine Color Yellow 07/02/18 06:05 Urine Appearance Clear (Clear) 07/02/18 06:05 Urine pH 5.5 (4.5-7.5) 07/02/18 06:05 Ur Specific [place] 1.020 (1.000-1.030) 07/02/18 06:05 Urine Protein Negative (Negative) 07/02/18 06:05 Urine Glucose (UA) Negative (Negative) 07/02/18 06:05 Urine Ketones Negative (Negative) 07/02/18 06:05 Urine Nitrite Negative (Negative) 07/02/18 06:05 Ur Leukocyte Esterase Negative (Negative) 07/02/18 06:05 07/01/18 19:02 Blood Culture - Preliminary Blood No growth to date. 07/01/18 19:00 Blood Culture - Preliminary Blood No growth to date.
[2018-07-04] MEDS ORDERED: ePHEDrine sulfate 50 MG/ML AMP IV PRN (07:23)
[2018-07-04] MEDS ORDERED: ONDANSETRON INJ 2 MG/ML 2 ML VIAL IV PRN (07:23)
[2018-07-04] MEDS ORDERED: ATROPINE SULFATE 0.1 MG/ML 10ML SYR IV PRN (07:23)
[2018-07-04] MEDS ORDERED: CONRAY 60% 50 ML VIAL ONE (07:36)
[2018-07-04] MEDS ORDERED: LIDOCAINE/EPINEPHRINE 1% 20 ML VIAL ONE (07:36)
[2018-07-04] MEDS ORDERED: SURGICEL ABSORB HEMOSTAT 2IN X 14IN TOP ONE (08:30)
[2018-07-04] MEDS ORDERED: cefOXitin 2,000 MG in DEXTROSE 5% 50 ML IV STA (08:31)
--- NOTE | 2018-07-04 09:55 | Fluoroscopy Report ---
[place] cholangiogram OR HISTORY: 57 years-old Male CHOLANGIOGRAM acute right upper quadrant abdominal pain with common bile duct stent. COMPARISON: Fluoroscopic images of the right upper quadrant abdomen 07/02/2018 TECHNIQUE: 4 spot fluoroscopic images of the dominant right upper quadrant were obtained utilizing 6. 5 seconds fluoroscopy time. FINDINGS: Surgical clips of the abdominal right upper quadrant redemonstrated. Common bile duct stent is noted which appears to be in satisfactory positioning. There is cannulation of the cystic duct with contras t injection. Mild intrahepatic biliary ductal dilation is noted. There is contrast noted flowing thro ugh the common bile duct with normal emptying into the duodenum. There are a few tiny filling defects noted within the common bile duct, possibly reflective of air bubbles or small stones. IMPRESSION: Fluoroscopic assistance as above. Please see procedural report for further details. The above report was generated using voice recognition software. It may contain grammatical, syntax o r spelling errors. Electronically signed by: Donnie Fonseca M.D. 07/04/2018 9:54 AM
--- NOTE | 2018-07-04 10:01 | Post Operative Brief Note ---
Immediate Post Op Note v1 Date of Surgery July 04, 2018 Pre & Post Diagnosis Operation Date: 07/02/18 09:00 Pre-Op Diagnosis: gallstones Post-Op Diagnosis: gallstones Operation Date: 07/04/18 07:30 Pre-Op Diagnosis: Right upper quadrant abdominal pain Post-Op Diagnosis: Right upper quadrant abdominal pain Procedure Operation Date: 07/02/18 09:00 Actual Procedures p Endoscopic Retrograde Cholangiopancreatogram, with biliary stent exchange(Not Applicable) - Candy Valdes MD Operation Date: 07/04/18 07:30 Actual Procedures p Laparoscopic Cholecystectomy with Intraopertaive Cholangiogram - Thom Sheldon MD Surgeon Thom Sheldon MD Tankage Grinder None Estimated Blood Loss 50 Findings Consistent with Post-Op Diagnosis Drains Rosas Drain (19Fr)
[2018-07-04] MEDS ORDERED: HYDROmorphone INJ 2 MG/ML SYR/VIAL ONE (10:14)
--- NOTE | 2018-07-04 10:25 | Operative Report ---
Post Operative Report Pre & Post Diagnosis Operation Date: 07/02/18 09:00 Pre-Op Diagnosis: gallstones Post-Op Diagnosis: gallstones Operation Date: 07/04/18 07:30 Pre-Op Diagnosis: Right upper quadrant abdominal pain Post-Op Diagnosis: Right upper quadrant abdominal pain Procedure Operation Date: 07/02/18 09:00 Actual Procedures p Endoscopic Retrograde Cholangiopancreatogram, with biliary stent exchange(Not Applicable) - Candy Valdes MD Operation Date: 07/04/18 07:30 Actual Procedures p Laparoscopic Cholecystectomy with Intraopertaive Cholangiogram - Thom Sheldon MD The patient was brought into the operating room theater in supine position gen eral endotracheal anesthesia the abdomen was shaved and prepped with Betadine solution and properly draped systemic antibiotics given a timeout was at small incision was made supraumbilically sufficient enough to place a Veress needle followed by CO2 followed by 5 mm trocar point of entry inspected no injury identified right upper quadrant is visualized patient had the omentum draped over the liver and direct visualization a 5 mm epigastric trocar was placed with preemptive local analgesia S2 out of 5 mm subcostal port patient was then placed in reverse Trendelenburg return to the left we freed up the omentum from the top of the liver however the undersurface of the liver was strictly adherent with omentum one area that I suspect it was part of the gallbladder fossa that had been left after the cholecystectomy that was done 20 years ago dissection was very difficult was more concrete like we took a very slowly first taken edge of the liver following that down as much as possible down to the inferior surface. There was a fatty tissue and omental tissue going down towards the doug hepatis area however prior to that the duodenum second portion was strictly adherent to this tissue. We can see the pylorus we stayed above the dissected pretty much by sharp dissection we were able to get around the second portion of the duodenum there is a significant amount of inflammation on top cephalad to the duodenum and stomach is we are freeing this up there was consistent with fat necrosis most likely from a pancreatitis. We left that area alone our attention was turned mostly to the area of the second portion where we continue with blunt dissection some sharp dissection 20 area that we thought may proceed consistent with the remnant of the gallbladder I placed and aspirated a needle in it there was very little if no drainage was not sure 100% that this was the gallbladder was a scar tissue. This point we continued more dissecting down very cautiously and I asked Dr. Alexander to command and help with prior to procedure because it was difficult to maneuver the camera and also to get his opinion. We finally were able to see an area that was consistent with a possible cystic duct going down towards the common bile duct however this tissue was quite large more so than one would expected we were well aware away that an area that looks significant likely common bile duct the prior to doing any further dissection as we did not get any cholangiogram at this point I elected to place a grasper and the tissue there was about 2 cm from the area of the common bile duct and kyle ction of the right took an x-ray we could see that where I was imaging was very close to the stent that was in the common bile duct therefore at this point I was reassured that we were in the right plane continue to dissect into this area and then finally made a small opening into this tissue and were able to extract some bowel and did a cholangiogram which showed that we were right on top of the cystic duct the cystic duct flow very easily and the common bile duct could visualize the stent there were no other debris appreciated. At this point the Cholangiocath was then removed and since the tissue was quite thickened and the gallbladder cystic duct itself was small we used an Endo TONY transected we were away from the common bile duct. This point more blunt dissection and sharp dissection was free the remnant of the gallbladder which was not significantly left I do not see any stones per se. The area was then checked hemostasis appear satisfactory we irrigated copiously with antibiotic 50 cc blood loss. Then I elected to drain the area with a Rosas drain, and then immediately taken out lateral subcostal port placement subhepatically attached to skin edge with 2-0 silk suture. We then placed the camera subcostal port and visualized the openings and there were no evidence of any adhesions to the umbilical area and other areas in the the epigastric port that we had a large to place a 12 mm trocar was then closed with [id number] x2 4-0 Monocryl. Procedure was tolerated well by the patient estimated blood loss approximately [address] Alexander came in to help with the surgery which was quite difficult Theresa Shepard PA helpful camera work closure and was present throughout the procedure needing her help considerably in this difficult case Surgeon Thom Sheldon MD Bowling Alley Mechanic Waqas Alexander DO and Khushbu KELLEY Estimated Blood Loss 50 Findings Consistent with Post-Op Diagnosis Specimens gallbladder and necrotic tissue Description of Procedure merda I attest to the content of the Intraoperative Record and any orders documented therein. Any exceptions are noted below.
[2018-07-04] MEDS: fentaNYL citrate 100 MCG/2 ML VIAL IV PRN ×4 (10:37→10:55)
--- NOTE | 2018-07-04 11:06 | Anesthesiology Progress Note ---
Date of Service July 04, 2018 Anesthesia Post Procedure Vital Signs Vital Signs: Temp Pulse Pulse Resp BP BP Pulse Ox 07/04/18 11:00 83 16 117/70 96 07/04/18 10:50 89 16 127/74 97 07/04/18 10:40 80 16 128/76 99 07/04/18 10:32 99.0 F 85 16 128/74 100 07/04/18 06:44 97.7 F 68 16 112/70 97 07/03/18 22:31 98.1 F 64 16 117/75 98 07/03/18 15:01 98.8 F 85 18 111/72 93 Pain Intensity Back: Pain Intensity: 6 Notes Mental Status: alert / awake / arousable and participated in evaluation Patient Amnestic to Procedure: Yes Nausea / Vomiting: adequately controlled Pain: adequately controlled Airway Patency, RR, SpO2: stable & adequate BP & HR: stable & adequate Hydration State: stable & adequate Anesthetic Complications: no major complications apparent and Pt Satisfied with anesthetic care
[2018-07-04] MEDS ORDERED: MoRPHine SULFATE 4 MG/ML 1 ML CARP\\VIAL IV PRN (11:47)
[2018-07-04] MEDS ORDERED: MoRPHine SULFATE 2 MG/ML CARP IV PRN (11:47)
[2018-07-04] MEDS ORDERED: OXYCODONE/ACETAMINOPHEN 5mg/325mg TAB PO PRN (11:47)
[2018-07-04] MEDS: MoRPHine SULFATE 2 MG/ML CARP IV PRN (11:58)
[2018-07-04] MEDS: cefTRIAXone SODIUM 1,000 MG in DEXTROSE 5% 50 ML IV SCH (12:40)
[2018-07-04] MEDS: LACTATED RINGER'S 1,000 ML IV SCH ×2 (12:45→22:14)
[2018-07-04] MEDS: VALSARTAN 80 MG TAB PO SCH (12:46)
[2018-07-04] MEDS: PANTOprazole 40 MG TAB PO SCH (12:47)
[2018-07-04] MEDS: CHOLECALCIFEROL 1,000 UNITS TAB PO SCH (12:47)
[2018-07-04] MEDS: KETOROLAC TROMETHAMINE 15 MG/ML VIAL IV PRN (13:00)
[2018-07-04] MEDS: OXYCODONE/ACETAMINOPHEN 5mg/325mg TAB PO PRN ×3 (14:02→22:11)
[2018-07-04] MEDS ORDERED: COUGH DROP (SUGAR FREE) LOZ 24 LOZ/1 BOX BUCCAL ONE (14:04)
--- NOTE | 2018-07-04 15:33 | Hospitalist Progress Note ---
Date of Service July 04, 2018 Assessment & Plan (1) Abdominal pain: Present on admission with abdominal pain On 06/10/18 Underwent ERCP with sphincterotomy and biliary stent placement and [address] abd/pelvis on admission showed mild pancreatic infiltration which has decreased since CT of June 13, 2018. KUB showed no evidence for a bowel obstruction. S/P ERCP done yesterday with stent replaced and large gallbladder seen Will d/c IV abx with rocephin and flagyl Case discussed with Gastro recommended follow up in 6-8 weeks for ERCP with stent removal after cholecystectomy. Pt would like to get cholecystectomy done during this admission (He said that he had his gallbladder removed back in 1997) Surgery consult Case discussed with Pito that will see the patient for possible cholecystectomy Blood cx no growth Continue pain control Keep NPO for now 07/04 S/P Laparoscopic Cholecystectomy with Intraopertaive Cholangiogram performed today by Dr. Pito MD No post-op complication Tolerated procedure well Starting on clear liquid diet Continue monitor (2) Back pain: Pain improves (3) HTN (hypertension): BP stable Continue valsartan Stable (4) Dyslipidemia: Continue statin (5) Osteoarthritis: On morphine and ketorolac IV prn Stable (6) Hypothyroidism: continue levothyroxine (7) GERD (gastroesophageal reflux disease): Continue ranitidine (8) Insomnia: continue trazadone (9) DVT prophylaxis: SCDS/Teds (Plan for procedure) CODE STATUS FULL CODE Disposition Will discharge once medically stable Subjective Pt was seen and examined Lying in bed with no distress Pt is smiling today He said that he feels much better He had the remmant of gallbladder removed today He said that he is only has pain from the incision area Denies any nausea, abdominal pain and SOB Physical Exam Vital Signs (Past 24 Hours): Last Vital Signs Temp 37 C 07/04/18 14:17 Pulse 100 H 07/04/18 14:17 Resp 16 07/04/18 13:17 BP 121/77 07/04/18 14:17 Pulse Ox 92 07/04/18 14:17 Physical Exam: General- No acute distress Head- atraumatic Eyes- PERRL, EOMI, ENT- oropharynx clear Neck- supple, no JVD Lungs- clear to auscultation Heart- regular rhythm; no murmur Abdomen- normal bowel sounds, +tender in RUQ area with palpation arround the incision area Extremities- no calf tenderness Neuro- alert, oriented x 3; PERRL, EOMI; no facial palsy; no dysarthria Skin- warm & dry (1) Hypothyroidism Hypothyroidism type: unspecified Qualified Code(s): E03.9 - Hypothyroidism, unspecified (2) Abdominal pain Abdominal location: unspecified location Qualified Code(s): R10.9 - Un specified abdominal pain (3) HTN (hypertension) Hypertension type: essential hypertension Qualified Code(s): I10 - Essential (primary) hypertension
[2018-07-04] MEDS: VENLAFAXINE HCL XR 37.5 MG CAPXR PO SCH (21:10)
[2018-07-04] MEDS: SIMVASTATIN 20 MG TAB PO SCH (21:10)
[2018-07-04] MEDS: TRAZODONE HCL 100 MG TAB PO SCH (22:11)
[2018-07-05] MEDS: KETOROLAC TROMETHAMINE 15 MG/ML VIAL IV PRN (00:12)
[2018-07-05] MEDS: metroNIDAZOLE 500 MG/100 ML BAG IV SCH (04:53)
[2018-07-05] MEDS: LEVOTHYROXINE SODIUM 200 MCG TABLET PO SCH (06:12)
[2018-07-05] MEDS: OXYCODONE/ACETAMINOPHEN 5mg/325mg TAB PO PRN ×3 (06:12→15:37)
[2018-07-05 07:50] VITALS: TEMP 98.1
[2018-07-05] MEDS: LACTATED RINGER'S 1,000 ML IV SCH (08:17)
[2018-07-05] MEDS: CHOLECALCIFEROL 1,000 UNITS TAB PO SCH (08:18)
[2018-07-05] MEDS: VALSARTAN 80 MG TAB PO SCH (08:18)
[2018-07-05] MEDS: cefTRIAXone SODIUM 1,000 MG in DEXTROSE 5% 50 ML IV SCH (08:18)
[2018-07-05] MEDS: PANTOprazole 40 MG TAB PO SCH (08:18)
--- NOTE | 2018-07-05 08:37 | Surgery Progress Note ---
Date of Service July 05, 2018 Assessment & Plan (1) RUQ abdominal pain: POD #1 s/p Laparoscopic Cholecystectomy with Intraoperative Cholangiogram Patient seen and examined with Dr. Sheldon. Doing well this AM- pain controlled- reports occasional back pain which improves with pain medication. Abdominal incisions clean, dry, intact. +Rosas drain- pt to keep drain in place at discharge. If patient tolerates regular diet he is ok for discharge from surgical standpoint. Will check on patient after lunch. Patient to follow-up with Dr Sheldon in General Surgery clinic. Subjective Patient feeling good this AM- reports that he will still get the occasional back pain, which does improve with pain medication. Tolerating full liquid diet and will receive regular diet this AM for breakfast. Abdominal pain well controlled. Physical Exam Vital Signs (Past 24 Hours): Last Vital Signs Temp 36.7 C 07/05/18 07:49 Pulse 71 07/05/18 07:49 Resp 14 07/05/18 07:49 BP 140/72 07/05/18 07:49 Pulse Ox 97 07/05/18 07:49 Gastrointestinal (Abdomen): Inspection/Auscultation: + abdominal surgical incision (steri-strips in place- clean, dry, incisions intact. ) and + abdominal surgical drain present (+Rosas drain- serosang drainage. ) Percussion/Palpation: + abdomen tender (as expected at incision sites. ) and abdomen soft
[2018-07-05 09:16] LABS: Basophils # (auto) 0.01 K/uL (0-0.2); Basophils % (auto) 0.2 %; Eosinophils # (auto) 0.07 K/uL (0-0.5); Eosinophils % (auto) 1.1 %; Hematocrit (blood only) 34.3 % (42-52); Hemoglobin 11.6 g/dL (14.0-18.0); Immature Granulocytes # (auto) 0.01 K/uL (0.00-0.02); Immature Granulocytes % (auto) 0.2 %; Lymphocytes # (auto) 1.31 K/uL (1.2-3.4); Lymphocytes % (auto) 20.7 %; Mean Corpuscular Hgb Conc 33.8 g/dL (32-36); Mean Corpuscular Volume 91.2 fL (80-100); Mean Platelet Volume 8.4 fL (7.4-10.4); Monocytes # (auto) 0.44 K/uL (0.11-0.59); Neutrophils # (auto) 4.48 K/uL (1.4-6.5); Neutrophils % (auto) 70.8 %; Platelet Count 167 K/uL (130-400); RDW Coefficient of Variation 13.1 % (11.5-14.5); Red Blood Count 3.76 M/uL (4.7-6.1); White Blood Count 6.32 K/uL (4.8-10.8)
[2018-07-05 09:36] LABS: Albumin Level 3.1 gm/dl (3.4-5.0); Bilirubin Direct 0.1 mg/dl (0-0.2); Bilirubin,Total 0.5 mg/dl (0.2-1); Total Protein 6.3 gm/dl (6.4-8.2)
[2018-07-05 12:28] VITALS: PULSE 64; O2SAT 96
--- NOTE | 2018-07-05 13:07 | Hospitalist Progress Note ---
Date of Service July 05, 2018 Assessment & Plan (1) Abdominal pain: Present on admission with abdominal pain On 06/10/18 Underwent ERCP with sphincterotomy and biliary stent placement and [address] abd/pelvis on admission showed mild pancreatic infiltration which has decreased since CT of June 13, 2018. KUB showed no evidence for a bowel obstruction. S/P ERCP done yesterday with stent replaced and large gallbladder seen Will d/c IV abx with rocephin and flagyl Case discussed with Gastro recommended follow up in 6-8 weeks for ERCP with stent removal after cholecystectomy. Pt would like to get cholecystectomy done during this admission (He said that he had his gallbladder removed back in 1997) Surgery consult Case discussed with Pito that will see the patient for possible cholecystectomy Blood cx no growth Continue pain control Keep NPO for now 07/05 S/P day 1 Laparoscopic Cholecystectomy with Intraopertaive Cholangiogram performed today by Dr. Pito MD No post-op complication Tolerated procedure well Tolerated diet Keep drain in place at discharge as per surgery Follow up in 6-8 weeks for ERCP with stent removal after cholecystectomy. Follow up with dr. Sheldon in General Surgery clinic. (2) Back pain: Pain improves Stable (3) HTN (hypertension): BP stable Continue valsartan Stable (4) Dyslipidemia: Continue statin (5) Osteoarthritis: On morphine and ketorolac IV prn Stable (6) Hypothyroidism: continue levothyroxine (7) GERD (gastroesophageal reflux disease): Continue ranitidine (8) Insomnia: continue trazadone (9) DVT prophylaxis: SCDS/Teds (Plan for procedure) CODE STATUS FULL CODE Disposition Will discharge home today Follow up with gastroenterology in 6-8 weeks for ERCP and stent removal Follow up with general surgery Dr. Sheldon Follow up with your primary care provider Dr. Hassan on 07/09 @ 2:05 PM Subjective Pt was seen and examined Standing in his room with no distress Pt said that he feels much better He said that he tolerated his diet He said that he does have mild tenderness around the incision area Denies any chest pain, palpitation, dizziness and SOB Physical Exam Vital Signs (Past 24 Hours): Last Vital Signs Temp 36.7 C 07/05/18 12:00 Pulse 64 07/05/18 12:00 Resp 19 07/05/18 12:00 BP 160/78 H 07/05/18 12:00 Pulse Ox 96 07/05/18 12:00 Physical Exam: General- No acute distress Head- atraumatic Eyes- PERRL, EOMI, ENT- oropharynx clear Neck- supple, no JVD Lungs- clear to auscultation Heart- regular rhythm; no murmur Abdomen- normal bowel sounds, +mild tender in RUQ area with palpation around the incision area, MIRZA drain in place with dressing on Extremities- no calf tenderness Neuro- alert, oriented x 3; PERRL, EOMI; no facial palsy; no dysarthria Skin- warm & dry (1) Hypothyroidism Hypothyroidism type: unspecified Qualified Code(s): E03.9 - Hypothyroidism, unspecified (2) Abdominal pain Abdominal location: unspecified location Qualified Code(s): R10.9 - Unspecified abdominal pain (3) HTN (hypertension) Hypertension type: essential hypertension Qualified Code(s): I10 - Essential (primary) hypertension
[2018-07-05 13:26] VITALS: BP 112/70
--- NOTE | 2018-07-06 08:58 | Discharge Summary ---
Date of Service July 05, 2018 Admission HPI Per Admitting Provider This is a 57-year-old white male who has a significant PMH of dyslipidemia, HTN, hypothryoidism, GERD, IBS, OA presented to ER with c/o abdominal pain x 3 day. Of significance patient recently hospitalized at [facility] secondary to choledocholithiasis. On 06/10/18 he underwent ERCP with sphincterotomy and biliary stent placement and 16 mm stone removal. He was treated with appropriate course of antibiotics. Initial transaminitis trended down post procedure. He was doing well postoperatively until approximately 3 days ago. He began developing intermittent abdominal discomfort specifically ri ght-sided. Pain became more frequent and more persistent. Feels similar to when he initially presented with choledocholithiasis. Nothing improved symptoms and nothing made it worse. He did have elevated temperature yesterday at 99.9 Fahrenheit. He also elicits to having sweats but no chills. He denies dizziness, lightheadedness, chest pain, shortness of breath, palpitations, cough, hemoptysis, nausea, vomiting, diarrhea, dysuria, hematuria, increased urgency or frequency with urination. He has been having regular stool although he did state yesterday his stools were more leora colored. He states he called in to speak with GI this evening. Given symptoms and patient to undergo stent removal on 07/05 it was recommended patient seek ED tonight and be admitted for biliary stent removal tomorrow. It was felt that stent may be the cause of patient's discomfort. Upon exiting room patient elicit he was having right-sided back discomfort. He states symptoms just started and felt may be related to positioning in bed. He states it is right sided below scapula, nonradiating, 10/13, nothing improved symptoms and nothing worsened symptoms. Never experienced symptoms in the past. "I can't get comfortable." Admission Exam Per Admitting Provider Gen: WD/WN, M, NAD, sitting up in bed, pleasant, conversing easily Head: Normocephalic, Atraumatic Eyes: Sclera normal, no conjunctival injection, PERRLA, EOMI ENT: Gross hearing intact, normal pharynx, mucous membranes moist Neck: supple, no adenopathy, No JVD, no bruit, Resp: Clear to auscultation b/l, no wheeze, rales, rhonchi. 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, pain to palpation around right thoracic paraspinal musculature, pt states, "pain isn't similar to pain I'm feeling." Extremities: No edema bilaterally Skin: warm, moist, no rash, negative turgor, cap refill < 2sec Neuro: Alert and oriented x 3, speech normal, good mood/affect, cran nerve 2-12 intact grossly : deferred Principal Diagnosis Abdominal Pain, Recent Stent Placement Laparoscopic Cholecystectomy with Intraopertaive Cholangiogram Discharge Exam General- No acute distress Head- atraumatic Eyes- PERRL, EOMI, ENT- oropharynx clear Neck- supple, no JVD Lungs- clear to auscultation Heart- regular rhythm; no murmur Abdomen- normal bowel sounds, +mild tender in RUQ area with palpation around the incision area, MIRZA drain in place with dressing on Extremities- no calf tenderness Neuro- alert, oriented x 3; PERRL, EOMI; no facial palsy; no dysarthria Skin- warm & dry Discharge Data Allergies Allergy/AdvReac Type Severity Reaction Status Date / Time No Known Allergies Allergy Verified 07/01/18 19:34 Consultations 07/01/18 20:27 ED Decision to Admit Stat 07/01/18 22:50 Consult Gastroenterology Routine 07/03/18 10:47 Consult General Surgery Routine Procedures Performed Operation Date: 07/02/18 09:00 Actual Procedures p Endoscopic Retrograde Cholangiopancreatogram, with biliary stent exchange(Not Applicable) - Candy Valdes MD Operation Date: 07/04/18 07:30 Actual Procedures p Laparoscopic Cholecystectomy with Intraopertaive Cholangiogram - Thom Sheldon MD Ordered Studies 07/01/18 21:24 CT abd pelvis wo con Stat 07/02/18 13:00 FL ERCP biliary ductal Routine 07/04/18 07:26 FL cholangiogram OR Routine [place] cholangiogram OR HISTORY: 57 years-old Male CHOLANGIOGRAM acute right upper quadrant abdominal pain with common bile duct stent. COMPARISON: Fluoroscopic images of the right upper quadrant abdomen 07/02/2018 TECHNIQUE: 4 spot fluoroscopic images of the dominant right upper quadrant were obtained utilizing 6.5 seconds fluoroscopy time. FINDINGS: Surgical clips of the abdominal right upper quadrant redemonstrated. Common bile duct stent is noted which appears to be in satisfactory positioning. There is cannulation of the cystic duct with contrast injection. Mild intrahepatic biliary ductal dilation is noted. There is contrast noted flowing through the common bile duct with normal emptying into the duodenum. There are a few tiny filling defects noted within the common bile duct, possibly reflective of air bubbles or small stones. IMPRESSION: Fluoroscopic assistance as above. Please see procedural report for further details. The above report was generated using voice recognition software. It may contain grammatical, syntax or spelling errors. Electronically signed by: Donnie Fonseca M.D. 07/04/2018 9:54 AM DICTATED BY: Candy Valdes M.D. Patient Name: Pepe Reeder Procedure Date: 07/02/2018 1:59 PM Date of : 1960 Admit Type: Inpatient Age: 57 Gender: Male Attending MD: Candy Valdes MD Procedure: ERCP Providers: Candy Valdes MD Referring MD: Ean COOL MD Indications: Abdominal pain of suspected biliary origin, Follow-up of bile duct stone(s), Stent change Medicines: Monitored Anesthesia Care Complications: No immediate complications. Estimated Blood Loss: Estimated blood loss: none. Procedure: Pre-Anesthesia Assessment: - Prior to the procedure, a History and Physical was performed, and patient medications and allergies were reviewed. The patient is competent. The risks and benefits of the procedure and the sedation options and risks were discussed with the patient. All questions were answered and informed consent was obtained. Patient identification and proposed procedure were verified by the physician and the nurse in the procedure room. Mental Status Examination: alert and oriented. Airway Examination: normal oropharyngeal airway and neck mobility. Respiratory Examination: clear to auscultation. CV Examination: normal. ASA Grade Assessment: II - A patient with mild systemic disease. After reviewing the risks and benefits, the patient was deemed in satisfactory condition to undergo the procedure. The anesthesia plan was to use monitored anesthesia care (MAC). Immediately prior to administration of medications, the patient was re-assessed for adequacy to receive sedatives. The heart rate, respiratory rate, oxygen saturations, blood pressure, adequacy of pulmonary ventilation, and response to care were monitored throughout the procedure. The physical status of the patient was re-assessed after the procedure. After obtaining informed consent, the scope was passed under direct vision. Throughout the procedure, the patient's blood pressure, pulse, and oxygen saturations were monitored continuously. The SCOPE was introduced through the mouth, and advanced to the duodenum and used to inject contrast into the bile duct. The ERCP was accomplished without difficulty. The patient tolerated the procedure well. Findings: A biliary stent was visible on the grocery clerk film. The esophagus was successfully intubated under direct vision. The scope was advanced to a normal major papilla in the descending duodenum without detailed examination of the pharynx, larynx and associated structures, and upper GI tract. The upper GI tract was grossly normal. One plastic stent originating in the biliary tree was emerging from the major papilla. The stent was visibly occluded. A biliary sphincterotomy had been performed. The sphincterotomy appeared open. One stent was removed from the biliary tree using a snare. A 0.035 inch angled standard wire was passed into the biliary tree. The Fusion OMNI sphincterotome was passed over the guidewire and the bile duct was then deeply cannulated. Contrast was injected. I personally interpreted the bile duct images. Ductal flow of contrast was adequate. Image quality was adequate. Contrast extended to the main bile duct. The main bile duct was moderately dilated. The largest diameter was 9 mm. The middle third of the main bile duct near the cystic duct take off was mildly narrowed, likely reactive to passing prior stones. Opacification of the cystic duct and gallbladder was successful. There is a large gallbladder remnant. No stones in the cystic duct. The biliary tree was swept with an 11.5 mm balloon starting at the bifurcation. Extensive sludge was swept from the duct. The middle third of the main bile duct was biopsied with a cold forceps for histology. Verification of patient identification for the specimen was done by the physician and nurse using the patient's name and date. One 10 Fr by 8 cm plastic stent with a single external flap and a single internal flap was placed into the common bile duct. Bile flowed through the stent. The stent was in good position. The total fluoroscopy exposure time was 2 minutes and 18 seconds. PD was not cannulated nor injected with contrast. Impression: - One visibly occluded stent from the biliary tree was seen in the major papilla. This was removed. - Prior biliary sphincterotomy appeared open. - No surgical clips seen and there is a large gallbladder remnant. No stones seen in the cystic duct. - A mild narrowing in the middle third of the main bile duct near the cystic duct take off. This was benign appearing, ?reactive. This was biopsied. - The entire main bile duct was moderately dilated. - The biliary tree was swept and sludge was found. - One plastic stent was placed into the common bile duct due to sludge and need for repeat cholecystectomy. Recommendation: - [facility]. - Refer to a surgeon for cholecystectomy. - Repeat ERCP in 6 weeks to remove stent after surgery. Candy Valdes MD 07/02/2018 3:46:42 PM This report has been signed electronically. Note Initiated On: 07/02/2018 1:59 PM Number of Addenda: 0 I attest to the content of the Intraoperative Record and orders documented therein, exceptions below {[id number]} Signed By:07/02/18 1546 Dictated: 07/02/18 1359 Transcribed: 07/02/18 1546Transcriptionist: VITOR The status of this report is Signed. Draft = Not yet reviewed or approved by Medical Physician. Signed = Reviewed and approved by Medical Physician. FL ERCP biliary ductal CLINICAL HISTORY: ERCP TO BE DONE IN THE O.R. COMPARISON STUDY: Abdomen and pelvis CT 07/01/2018. FLUOROSCOPY TIME: 2 minutes and 18 seconds. FINDINGS: 11 fluoroscopic spot images submitted. A common bile duct stent is identified. An endoscope is seen at the second portion of the duodenum and the ampulla is cannulated. The stent is removed. Contrast is injected into the common bile duct. A balloon sweep was performed. This is followed by placement of a common bile duct stent which appears in good position. IMPRESSION: Fluoroscopy provided for common bile duct stent exchange. Electronically signed by: Robinson Walker M.D. 07/02/2018 3:49 PM Dictated: 07/02/18 1548 Transcribed: 07/02/[address] OF THE ABDOMEN AND PELVIS WITHOUT CONTRAST CLINICAL HISTORY: Abdominal pain. Evaluate for kidney stone. COMPARISON STUDY: CT of the abdomen and pelvis June 13, 2018. TECHNIQUE: Axial images of the abdomen and pelvis were obtained without IV contrast. Images were reviewed in the axial, sagittal, and coronal planes. Automated exposure control was utilized for the study. A dose lowering technique was utilized adhering to the principles of ALARA. FINDINGS: Lung bases are clear. No renal, ureteral or bladder calculi are present. There is no hydronephrosis or Valentines ureter. Evaluation of the abdomen and pelvis is suboptimal on this unenhanced exam. A common bile duct stent appears appropriately positioned. No calcified stones within the common bile duct are noted. The gallbladder surgically absent. Pneumobilia is noted. Mild biliary ductal dilatation appears unchanged. Mild peripancreatic infiltration has diminished since exam of June 13, 2018. There is no evidence for a bowel obstruction. The appendix is normal. There is no lymphadenopathy. There are no suspicious osseous lesions. No pneumatosis or portal venous gas is present. There is no free air. There is no pancreatic ductal dilatation. Evaluation of the pancreas is suboptimal on this unenhanced exam. IMPRESSION: 1. No urinary calculi or hydronephrosis. 2. Appropriately positioned common bile duct stent. Pneumobilia, as expected. Stable mild biliary ductal dilatation. 3. Mild pancreatic infiltration which has decreased since CT of June 13, 2018. This suggests acute pancreatitis. 4. No bowel obstruction. Normal appendix. Electronically signed by: Krzysztof Betancourt M.D. 07/01/2018 10:43 PM Dictated: 07/01/182236 Transcribed: 07/01/182236 KUB CLINICAL HISTORY: stent placement COMPARISON STUDY: CT of the abdomen and pelvis June 13, 2018. FINDINGS: A common bile duct stent is similar in position to CT of June 13, 2018. There are cholecystectomy clips. The bowel gas pattern is normal. No urinary calculi are identified. IMPRESSION: 1. Appropriately positioned common bile duct stent. 2. No evidence for a bowel obstruction. Electronically signed by: Krzysztof Betancourt M.D. 07/01/2018 6:50 PM Dictated: 07/01/18 1845 Transcribed: 07/01/18 184 Hospital Course (1) Abdominal pain: Present on admission with abdominal pain On 06/10/18 Underwent ERCP with sphincterotomy and biliary stent placement and [address] abd/pelvis on admission showed mild pancreatic infiltration which has d ecreased since CT of June 13, 2018. KUB showed no evidence for a bowel obstruction. S/P ERCP done yesterday with stent replaced and large gallbladder seen Will d/c IV abx with rocephin and flagyl Case discussed with Gastro recommended follow up in 6-8 weeks for ERCP with stent removal after cholecystectomy. Pt would like to get cholecystectomy done during this admission (He said that he had his gallbladder removed back in 1997) Surgery consult Case discussed with Pito that will see the patient for possible cholecystectomy Blood cx no growth Continue pain control Keep NPO for now 07/05 S/P day 1 Laparoscopic Cholecystectomy with Intraopertaive Cholangiogram performed today by Dr. Pito MD No post-op complication Tolerated procedure well Tolerated diet Keep drain in place at discharge as per surgery Follow up in 6-8 weeks for ERCP with stent removal after cholecystectomy. Follow up with dr. Sheldon in General Surgery clinic. (2) Back pain: Pain improves Stable (3) HTN (hypertension): BP stable Continue valsartan Stable (4) Dyslipidemia: Continue statin (5) Osteoarthritis: On morphine and ketorolac IV prn Stable (6) Hypothyroidism: continue levothyroxine (7) GERD (gastroesophageal reflux disease): Continue ranitidine (8) Insomnia: continue trazadone (9) DVT prophylaxis: SCDS/Teds (Plan for procedure) CODE STATUS FULL CODE Disposition Will discharge home today Follow up with gastroenterology in 6-8 weeks for ERCP and stent removal Follow up with general surgery Dr. Sheldon Follow up with your primary care provider Dr. Hassan on 07/09 @ 2:05 PM Total Time Total Time Spent Total Time Spent (In Minutes): 35 minutes Total Time Includes: Examination of the Patient, Discharge Planning, Medication Reconciliation, Communication With Other Providers and Other Discharge Plan Discharge Items Patient Disposition: Home - Self-Care Reason For Visit: ABDOMINAL PAIN,RECENT STENT PLACEMENT Discharge Diagnosis: Abdominal Pain, Recent Stent Placement Discharge Goals: Decrease discomfort and Improve function Activity: As commented below Lifting: No more than 10 pounds Lifting Comment: No lifting over 10lbs for next 2 weeks. Bathing Comment: May shower, but do not soak or scrub your incisions. Driving/Machine Use: Resume 3 days after discharge Driving/Machine Use Comment: Do not drive if taking Percocet. Non-emergency contact: Surgeon Call non-emergency contact if: you have any medication questions, your pain is not controlled, your temperature is above 101.5, your wound has increased redness and your wound has increased drainage Follow-up/Referrals: Thom Sheldon MD [Surgeon] - (Please call the General Surgery clinic at [phone] to schedule a follow-up appointment and to have drain removed in the clinic. ) Frank Hassan MD [Primary Care Provider] - Diet: Regular Addtl Provider Instructions: Follow up with gastroenterology in 6-8 weeks for ERCP and stent removal (please to schedule for the appointment) Follow up with general surgery Dr. Sheldon (please to schedule for the appointment) Follow up with your primary care provider Dr. Hassan on 07/09 @ 2:[address] or operate any machine after taking the percocet Please hold the next dose if you become any drowsy or lethargy You may shower, but do not soak or scrub your incisions. Please empty your drain and record the amount of drainage being discarded. Please call the General Surgery clinic at [phone] to schedule your follow- up appointment and to have your drain removed in the clinic. Please call the General Surgery clinic with any questions or concerns. Prescriptions: New oxycodone-acetaminophen [Percocet] 5-325 mg tablet 1 - 2 tab PO Q6H PRN (Reason: pain) 3 Days Qty: 24 RF: 0 pantoprazole 40 mg Tablet,Delayed Release (Dr/Ec) 40 mg PO QAM 30 Days Qty: 30 RF: 0 docusate sodium [Colace] 100 mg capsule 100 mg PO BID PRN (Reason: constipation) Qty: 30 RF: 0 Continued acetaminophen [Tylenol Arthritis Pain] 650 mg Tablet Extended Release 1,300 mg PO BID RF: 0 ranitidine HCl 150 mg tablet 150 mg PO HS RF: 0 [id number]-mdc-[id number]-ast [krill oil] 1,275-060-11-80 mg Capsule 1 cap PO QAM RF: 0 valsartan 40 mg tablet 40 mg PO DAILY RF: 0 celecoxib 200 mg capsule 200 mg PO QAM RF: 0 venlafaxine 37.5 mg capsule,extended release 24hr 37.5 mg PO HS RF: 0 tramadol 50 mg tablet 100 mg PO BID RF: 0 trazodone 100 mg tablet 100 mg PO HS RF: 0 simvastatin 20 mg tablet 20 mg PO HS RF: 0 levothyroxine 200 mcg tablet 200 mcg PO QAM RF: 0 cholecalciferol (vitamin D3) [Vitamin D3] 1,000 unit Capsule 1,000 units PO QAM RF: 0 Stand-Alone Forms: Call Back Authorization, [facility], Opioid Pain Management Krames/Other Patient Handouts: Tube Shamar León Drainage Care Discharge Orders: Discharge Order (Routine); Ordered 07/05/18 Ordered By: Milton Ortiz Admission Data Admit Date/Time: 07/01/18 21:01 Attending Provider: Milton Ortiz Admit Provider: Jagjit Lang Primary Care Provider: Frank Hassan Other Providers: Jagjit Lang ; Candy Valdes ; Thom Sheldon Service: Surgical Services Other Interventions: Discharge Summary Assessment (RN) Last Done: 07/05/18 13:24 Pending Studies at Discharge: Yes Studies:: Pathology report. DC Date/Time DO NOT enter until pt leaves facility: 07/05/18 16:07
--- NOTE | 2018-07-21 07:07 | Coding Query ---
PATHOLOGY To promote full compliance with coding requirements relating to patient care, physician participation is requested in all cases of fuller brush man uncertainty. Please assist us with the question(s) below: Please review the Gallbladder Pathology report and please document any relevant diagnosis(es) below: Diagnosis(es): RUQ Abdominal pain/ Large gallbladder remnant Thank you Tanna MOE
== END 2018-07-05 16:07 | disposition home or self-care (01) ==
LOC: 3N 18:02 → ED 18:02 → 3N 22:54